=== PATIENT | male | born 1965 | race Caucasian/White ===

== ENCOUNTER 2020-05-05 14:46 | Inpatient (IN) | payer SELFPAY ==
[2020-05-05] VITALS (8 sets, daily range): BP systolic 120–159; BP diastolic 93–114; PULSE 98–114; RESP 15–24; TEMP 36.7–37.1; O2SAT 95–98; BMI 31.1
--- NOTE | ~2020-05-05 | XR_ITS ---
XR chest 1V portable 05/07/2020 08:59 Indication: Cough with shortness of breath Procedure: AP portable chest Comparison: 05/05/2020 Findings: Interval development of patchy bilateral airspace disease, compatible with pneumonia. No pl eural effusion or pneumothorax. Heart size normal. No acute osseous abnormality. Impression: 1: Interval development of patchy bilateral airspace disease, compatible with pneumonia. Reviewed, dictated and finalized at location B. Impression: 1: Interval development of patchy bilateral airspace disease, compatible with p neumonia.
--- NOTE | ~2020-05-05 | XR_ITS ---
EXAMINATION: XR shoulder RT min 2V DATE: 05/05/2020 16:44 INDICATION: Right shoulder pain. TECHNIQUE: 4 views of right shoulder were obtained. COMPARISON: None. FINDINGS: Bone alignment is normal. No fracture. There is mild osteoarthritis of glenohumeral joint a nd acromioclavicular joint. IMPRESSION: 1. Mild polyarticular osteoarthritis. Reviewed, dictated and finalized at location A.
--- NOTE | ~2020-05-05 | XR_ITS ---
XR chest 1V portable DATE: 05/05/2020 15:43 INDICATION: Shortness of breath, cough, hypertension. Congestive heart failure. TECHNIQUE: Portable upright AP chest on 05/05/2020 at 1538 hours COMPARISON: None FINDINGS: Cardiomegaly. Mild aortic unfolding. No hilar or mediastinal enlargement. No pulmonary infiltrate or consolidation, pleural effusion or pulmonary vascular congestion or pneumo thorax. IMPRESSION: Cardiomegaly No active pulmonary disease Reviewed, dictated and finalized at location A.
--- NOTE | ~2020-05-05 | CT_ITS ---
EXAMINATION: CTA chest PE protocol DATE: 05/05/2020 16:38 INDICATION: Chest pain and shortness of breath for 2 days TECHNIQUE: Computed tomography angiography (CTA) of the chest was performed with 100 mL Omnipaque-350 intravenous contrast timed to evaluate the pulmonary arteries. Coronal maximum intensity projection 3D-reconstructions were created by the technologist. Automated exposure control and iterative reconst ruction technique were employed. Exam dose: 742.84 mGy-cm total exam DLP. COMPARISON: 05/05/2020 portable AP chest FINDINGS: There is diagnostic contrast enhancement of the pulmonary arteries and no evidence of pulmo nary embolism. No thoracic aortic aneurysm or dissection. No pericardial or pleural effusion. No hilar or mediastinal mass lesion or lymphadenopathy. There are scattered patchy groundglass infiltrates scattered in both upper and lower lobes, consisten t with bilateral pneumonia. Diffuse idiopathic skeletal hyperostosis of the thoracic spine. IMPRESSION: No evidence of pulmonary embolism Scattered bilateral patchy groundglass infiltrates suggesting bilateral pneumonia. These are not readily detectable even in retrospect on the earlier portable radiograph today at 1538 hours Reviewed, dictated and finalized at Location A. Reviewed, dictated and finalized at location A. IMPRESSION: No evidence of pulmonary embolism Scattered bilateral patchy groundglass infiltrates suggesting bilateral pneumon ia. These are not readily detectable even in retrospect on the earlier portable rad iograph today at 1538 hours
--- NOTE | 2020-05-05 14:59 | ECG_ITS ---
Measurements Intervals [place] Rate: 112 P: 52 UT: 158 QRS: -16 QRSD: 99 T: 95 QT: 407 QTc: 558 Interpretive Statements SINUS TACHYCARDIA POSSIBLE RIGHT ATRIAL ENLARGEMENT POSSIBLE LEFT ATRIAL ENLARGEMENT LEFT VENTRICULAR HYPERTROPHY WITH ST-T CHANGE BORDERLINE T WAVE ABNORMALITY- LATERAL LEADS BASELINE WANDER- V1-V2 ABNORMAL ECG Electronically Signed On 05-05-2020 15:11:55 CDT by Khadar Mckeon D.O.
[2020-05-05 15:19] LABS: Basophils Absolute Auto 0.1 K/mm3 (0.0-0.1); Basophils Percent Auto 0.4 % (0.2-1.2); Eosinophils Absolute Auto 0.2 K/mm3 (0-0.3); Eosinophils Percent Auto 1.2 % (0-4.4); Hematocrit 44.6 % (42.0-52.0); Hemoglobin 15.3 g/dL (14.0-18.0); Immature Granulocyte Absolute 0.05 K/mm3 (0.00-0.031); Immature Granulocyte Percent A 0.4 % (0-0.5); Lymphocytes Absolute Auto 2.26 K/mm3 (0.9-3.2); Lymphocytes Percent Auto 16.2 % (18.3-44.2); Mean Corpuscular HGB Conc 34.3 g/dl (32-36); Mean Corpuscular Hemoglobin 32.8 pg (26-34); Mean Corpuscular Volume 95.7 fl (80-100); Mean Platelet Volume 10.7 fl (7.4-10.4); Monocytes Absolute Auto 1.8 K/mm3 (0.1-0.6); Monocytes Percent Auto 12.6 % (2.6-8.5); Neutrophils Absolute Auto 9.6 K/mm3 (1.3-6.7); Neutrophils Percent Auto 69.2 % (45.5-73.1); Platelet Count Result 312 k/mm3 (150-375); Red Blood Count 4.66 M/mm3 (4.6-6.20); Red Cell Distribution Width 13.2 % (11.5-14.5); White Blood Count 13.9 K/mm3 (4.5-10.0)
[2020-05-05 15:31] LABS: Blood Urea Nitrogen 24 mg/dL (9-20); Carbon Dioxide 25 mmol/L (22-30); Chloride 104 mmol/L (98-107); Estimated CRCL calculation 82 ml/min; Estimated Glomerular Filt Rate > 60; Glucose 133 mg/dL (75-110); Potassium 3.9 mmol/L (3.4-5.0); Sodium 139 mmol/L (137-145)
--- NOTE | 2020-05-05 15:31 | ED.GENADULT ---
HPI - General Adult General Chief complaint: Shortness of Breath/Dyspnea <RAFIA Rausch - Last Filed: 05/05/20 17:08> Stated complaint: cough <RAFIA Rausch - Last Filed: 05/05/20 17:08> Time Seen by Provider: 05/05/20 15:30 <RAFIA Rausch - Last Filed: 05/05/20 17:08> Source: patient <RAFIA Rausch - Last Filed: 05/05/20 17:08> Mode of arrival: ambulatory <RAFIA Rausch - Last Filed: 05/05/20 17:08> Limitations: no limitations <RAFIA Rausch - Last Filed: 05/05/20 17:08> History of Present Illness HPI narrative: 54-year-old male patient presents to the emergency department with complaints of chest pain shortness of breath for the past 2 days. Patient states he recently had a tooth pulled yesterday and was placed on amoxicillin. Patient states that the chest pain shortness of breath happened before that. Patient states that he does work at [employer] and does wear a mass normally daily basis. Patient denies any lightheadedness, dizziness. Denies any fevers. Denies any abdominal pain, nausea, vomiting or diarrhea. Patient is complaining of right shoulder pain stating that over the weekend he was throwing some balls and thinks that he pulled something because since then he has had pain to the right shoulder that radiates down to the elbow. <RAFIA Rausch - Last Filed: 05/05/20 17:08> Related Data Home medications: Home Medications Medication Instructions Recorded Confirmed lisinopril-hydrochlorothiazide 1 tablet 10/09/19 carvedilol 6.25 mg PO 05/05/20 <RAFIA Rausch - Last Filed: 05/05/20 17:08> Allergies/adverse reactions: Allergies Allergy/AdvReac Type Severity Reaction Status Date / Time No Known Allergies Allergy Verified 05/05/20 15:04 <RAFIA Rausch - Last Filed: 05/05/20 17:08> Review of Systems Review of Systems: Narrative: CONSTITUTIONAL: Denies fever, chills, or sweats. EYES: Denies visual changes, redness, or discharge. ENT: Denies rhinorrhea, congestion, sore throat, or otalgia. CARDIOVASCULAR: Positive chest pain, denies palpitations, or edema. RESPIRATORY: Denies cough, positive dyspnea. GASTROINTESTINAL: Denies abdominal pain, nausea, vomiting, or diarrhea. GENITOURINARY: Denies dysuria or hematuria. SKIN: Denies rash or itching. MUSCULOSKELETAL: Denies back pain, joint pain, or myalgia. NEUROLOGIC: Denies headache, numbness, or weakness. PSYCHIATRIC: Denies anxiety or depression. <RAFIA Rausch - Last Filed: 05/05/20 17:08> [facility] Past Medical History Medical History: Medical History (Updated 05/05/20 @ 15:52 by RAFIA Rausch) CHF (congestive heart failure) Diabetes type 2, controlled no longer on meds HTN (hypertension) Migraine <RAFIA Rausch - Last Filed: 05/05/20 17:08> Surgical History Surgical History: Surgical History No significant past surgical history <RAFIA Rausch - Last Filed: 05/05/20 17:08> Social History Social History: Social History Smoking status: Never smoker Alcohol intake: never Substance use: never Gender identity (if verbalized by the patient): Male <RAFIA Rausch - Last Filed: 05/05/20 17:08> Comments At the time of my signature I agree with nursing past medical history, surgical, social, and family history. There is no relevant family history pertinent to the presenting complaint. <RAFIA Rausch - Last Filed: 05/05/20 17:08> Exam Narrative: Exam Narrative: GENERAL: Well-appearing, well-nourished, and in no acute distress. HEAD: Normocephalic, atraumatic. EYES: PERRLA and EOMI. ENT: Nares clear, no rhinorrhea or epistaxis. Mucous membranes moist. NECK: Supple. No lymphadenopathy CHEST: Clear to auscultation. No respiratory distress. HEART: Regular rate an
[2020-05-05 15:51] LABS: NT Pro B Type Natriuretic Pept 7480 PG/ML (5-100); Troponin I 0.091 ng/mL (0.000-0.034)
[2020-05-05] MEDS: ASPIRIN 81 MG CHEWABLE TABLET 324 MG PO (16:15)
[2020-05-05] MEDS: SODIUM CHLORIDE 0.9% IV 1,000 ML 999 ML IV CONT (16:15)
[2020-05-05 17:12] LABS: D Dimer 0.27 ug/mL (<0.48)
[2020-05-05 18:02] LABS: Troponin I 0.094 ng/mL (0.000-0.034)
--- NOTE | 2020-05-05 19:15 | ADMGEN ---
This patient, Hayes Meza, was admitted to Intensive Care Unit-3. Patient/family oriented to hospital policies and general routines including ID bracelet, bed and alarms, visiting hours, pain management, procedures, bathroom and other care routines, personal items, smoking policy, room service/diet, and visiting hours. Valuables list has been completed. Information on how to activate the Rapid Response Team has been discussed. Patient/Family are encouraged to report perceived risks to care and to ask questions if they do not understand what they are told or what they should do.
[2020-05-05] MEDS: SODIUM CHLORIDE 0.9% IV 1,000 ML 125 ML IV CONT (20:03)
[2020-05-05] MEDS: guaiFENesin 200 MG/10 ML UDC PO (21:04)
[2020-05-05] MEDS: ACETAMINOPHEN/ASPIRIN/CAFFEINE 250-250-65 MG TABLET 1 TABLET PO (21:04)
[2020-05-06] VITALS (19 sets, daily range): BP systolic 103–164; BP diastolic 69–118; PULSE 88–110; RESP 18–24; TEMP 36.4–38; O2SAT 95–100
--- NOTE | 2020-05-06 00:18 | PM.IMHP ---
H&P: HPI History of Present Illness Chief complaint: Chest pain and shortness of breath Narrative: Date and time of patient contact: 05/06/2020 at 12:20 a.m. Hayes Meza is a 54 year old male with a past medical history of CHF, hypertension and diet-controlled diabetes who presented to the ER with chest pain and shortness of breath. He reports having a cough for approximately 3 days. He also developed generalized chest pain that is worse with deep breathing and coughing. His cough has been dry and unrelenting. When he was in the ER the patient was on room air. He denies any fevers or chills. 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 He has been wearing his mask all day at work except for during his lunch break. He denies any recent ill contacts or COVID-19 exposure. He did have a dental extraction on the left jaw on the . He is on amoxicillin following his dental extraction. He reports that he has been having right shoulder pain for the last week. He related to when he was playing baseball. He reports severe pain in the shoulder with both active and passive range of motion. He had an x-ray performed in the ER which demonstrated polyarticular arthritis. He reports that it feels like it is grinding any time he tries to produce range of motion with the right shoulder. Initial anterior shoulder and deltoid region is tender to palpation. There is no obvious edema or swelling. He has not noticed any increased warmth. He reports that the pain radiates down to his elbow. He is denies any loss of the since the taste or smell. He has not had any nausea or vomiting. He has been having normal bowel movements without hematochezia or melena. He has not had any recent travel. He denies any lower extremity swelling or orthopnea. He does have a history of migraines and reports that his headache is moderate to severe and is worse due to his coughing. Within 45 minutes arriving to the ICU the patient developed a significant oxygen requirement his pulse ox was down to 70%. He was initially placed on 4 L nasal cannula but had rapid increase in his oxygen requirement up to 10 L high-flow and a non-rebreather in order to maintain his oxygen saturations. An ABG performed at that time pH 7.4 pCO2 25 PO2 189 the patient was subsequently taken off of the non-rebreather. The patient will desat down to the mid 70s with coughing. Has a history diabetes. He reports that he lost 35 lb several years ago and has not required any further diabetic medications. He has been told that he snores and that he has episodes of apnea. He has never had a sleep study. He reports that he had a cardiac catheterization several years ago that was reportedly normal. He was diagnosed with CHF and was on medications for approximately 3 years. He reports that his cardiac function had normalized and his medications were discontinued. He has not been having any orthopnea or paroxysmal nocturnal dyspnea. He has not established with a primary care physician since he moved to [place] in August. Review of Systems Review of Systems: Narrative: 12 systems were reviewed with pertinent positives and negatives per HPI. Except as documented in the HPI, all other systems were reviewed and are negative. [facility] Past Medical History Medical History (Updated 05/06/20 @ 03:48 by Skylar Severino DO) CHF (congestive heart failure) The patient reports that he had CHF about 6-8 years ago when he lived in [place]. After medication adjustments his cardiac function normalized. Diet-controlled diabetes mellitus Essential hypertension Migraine Surgical History Surgical History (Updated 05/06/20 @ 03:30 by Skylar Severino DO) History of cardiac catheterization Approximately 6 years ago and was normal per patient report Family History Family History Mother Lung cancer Social History Social History (Updated 05/06
[2020-05-06 00:40] LABS: Troponin I 0.088 ng/mL (0.000-0.034)
[2020-05-06 00:43] LABS: Alveolar/Arterial O2 Gradient 210.1 mmHg; Base Excess ABG -5.6 mEq/l (+/-2.0); Carboxyhemoglobin 0.1 % THb (0-2.0); Fractional Inspired Oxygen 60 %; HCO3 ABG 16.8 mEq/l (22.0-26.0); Methemoglobin ABG 0.4 %THb (0-1.5); Oxygen Content ABG 20.3 %vol (16.0-22.0); Oxygen Saturation ABG 99.4 % (95.0-100.0); Oxyhemoglobin 98.3 % THb (90.0-100.0); PCO2 ABG 25.5 mmHg (35.0-45.0); PO2 ABG 189.7 mmHg (80.0-100.0); PO2 FiO2 Ratio Arterial Blood 3.16 %; Reduced Hemoglobin 1.2 %THb (0-5.0); Total Hemoglobin 14.4 g/dL (12.0-18.0); pH ABG 7.436 (7.350-7.450)
[2020-05-06 00:44] LABS: Device HIGH FLOW NASAL CANN; Modified Allen's Test Pass; Site Drawn RIGHT RADIAL
[2020-05-06] MEDS: guaiFENesin 200 MG/10 ML UDC PO (01:26)
[2020-05-06] MEDS: ACETAMINOPHEN/ASPIRIN/CAFFEINE 250-250-65 MG TABLET 1 TABLET PO (01:26)
[2020-05-06] MEDS: ALBUTEROL SULFATE (*SP) AEROSOL 1 PUFF 6 PUFF INHALATION ×5 (04:37→21:07)
[2020-05-06] MEDS: METOPROLOL TARTRATE INJ 5 MG/5 ML VIAL IV PUSH (05:16)
[2020-05-06 05:57] LABS: Basophils Absolute Auto 0.1 K/mm3 (0.0-0.1); Basophils Percent Auto 0.4 % (0.2-1.2); Eosinophils Absolute Auto 0.2 K/mm3 (0-0.3); Eosinophils Percent Auto 1.1 % (0-4.4); Hematocrit 41.7 % (42.0-52.0); Hemoglobin 13.7 g/dL (14.0-18.0); Immature Granulocyte Absolute 0.08 K/mm3 (0.00-0.031); Immature Granulocyte Percent A 0.5 % (0-0.5); Lymphocytes Absolute Auto 1.83 K/mm3 (0.9-3.2); Lymphocytes Percent Auto 11.1 % (18.3-44.2); Mean Corpuscular HGB Conc 32.9 g/dl (32-36); Mean Corpuscular Hemoglobin 32.4 pg (26-34); Mean Corpuscular Volume 98.6 fl (80-100); Mean Platelet Volume 11.8 fl (7.4-10.4); Monocytes Absolute Auto 1.9 K/mm3 (0.1-0.6); Monocytes Percent Auto 11.2 % (2.6-8.5); Neutrophils Absolute Auto 12.5 K/mm3 (1.3-6.7); Neutrophils Percent Auto 75.7 % (45.5-73.1); Platelet Count Result 217 k/mm3 (150-375); Red Blood Count 4.23 M/mm3 (4.6-6.20); Red Cell Distribution Width 13.3 % (11.5-14.5); White Blood Count 16.5 K/mm3 (4.5-10.0)
[2020-05-06 06:55] LABS: Alanine Aminotransferase 34 U/L (4-50); Albumin Level 3.7 g/dL (3.5-5.1); Alkaline Phosphatase 59 U/L (38-126); Aspartate Amino Transferase 39 U/L (17-59); Bilirubin,Total 1.1 mg/dL (0.2-1.3); Blood Urea Nitrogen 22 mg/dL (9-20); CRP 1.6 mg/dL (<1.0); Calcium 8.1 mg/dL (8.4-10.2); Carbon Dioxide 26 mmol/L (22-30); Chloride 104 mmol/L (98-107); Estimated CRCL calculation 82 ml/min; Estimated Glomerular Filt Rate > 60; Glucose 165 mg/dL (75-110); Lactate Dehydrogenase 688 U/L (313-618); Sodium 137 mmol/L (137-145)
[2020-05-06] MEDS: lisinopriL 20 MG TABLET PO (08:43)
[2020-05-06] MEDS: hydroCHLOROthiazide 25 MG TABLET PO (08:44)
[2020-05-06] MEDS: ENOXAPARIN 40 MG/0.4 ML SYRINGE SUB-Q ×2 (08:44→20:20)
[2020-05-06] MEDS: ACETAMINOPHEN/ASPIRIN/CAFFEINE 250-250-65 MG TABLET 2 TABLET PO ×3 (08:45→20:31)
[2020-05-06] MEDS: BENZOCAINE/MENTHOL (*BKC) 18 EA LOZENGE 1 LOZENGE PO ×2 (13:30→20:28)
[2020-05-06 13:39] LABS: Glucose Point of Care 110 (65-105)
[2020-05-06 13:59] LABS: SARS-CoV-2 RNA PCR Negative
--- NOTE | 2020-05-06 15:18 | WPDCN ---
Assessment and Plan Assessment and plan (1) Chest pain: Code(s): R07.9 - Chest pain, unspecified Status: Acute Assessment and Plan: The patient presented with chest pain which appears to be noncardiac. Likely musculoskeletal and related to pulmonary issues. The patient does have a history of cardiomyopathy which apparently normalized, and a mildly elevated proBNP with cardiomegaly on the chest x-ray. Reasonable to evaluate with a echo to see if there is any left ventricular dysfunction If so, recommend cardiology follow-up as an outpatient. (2) Elevated troponin: Code(s): R79.89 - Other specified abnormal findings of blood chemistry Status: Acute Assessment and Plan: Borderline elevation of troponins, secondary to physiologic stress. No evidence of ACS. 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 (4) Acute respiratory failure with hypoxia: Code(s): J96.01 - Acute respiratory failure with hypoxia Status: Acute Assessment and Plan: (5) Suspected COVID-19 virus infection: Code(s): Z20.828 - Contact with and (suspected) exposure to other viral communicable diseases Status: Acute Assessment and Plan: COVID screen pending HPI Data of Consult Date/Time: 05/06/20 15:18 Requesting Physician: Alessandra Pavon MD Primary Care Provider: RESEARCH AIDE PHYSICIAN Consult Narrative Narrative: Date of service: 05/05/2020 Hayes Meza is a 54 year old male number asked to see at the request of the hospitalist for advice and opinion regarding his chest pain, shortness of breath and elevated troponins. This apparently has a history of CHF with normalization of left ventricular function, treated in [place]. The patient has developed the shortness of breath cough and chest pain over the last 3 days. The chest pain has been worse with coughing and deep breathing in a there has been tenderness to touch. He apparently was able to play baseball last week and has had pain in the right shoulder since then. The pain is present with motion. Shortly after admission he became hypoxic with O2 saturations dropping down the 70% requires high-flow oxygen in the ICU. His COVID screen is pending. Troponins ranged from 0.088 up to 0.094. ProBNP was 7500. He has no known coronary disease; apparently had a cardiac catheterization several years ago which was normal. Apparently was treated for CHF 6-8 years ago treated in [place] but had normalization of left ventricular function and medications were discontinued. He does have diabetes and hypertension. Review of Systems Review of Systems: Narrative: the review of systems is obtained from the chart and from the patient's nurse. ROS unobtainable: Yes unobtainable due to medical condition ( COVID screen is still pending) Eyes: Eyes: Reports no additional eye complaints Cardiovascular: Cardiovascular: Reports chest pain, Denies pedal edema and Denies palpitations Respiratory: Respiratory: Reports cough, Reports dyspnea and Reports dyspnea on exertion Gastrointestinal: Gastrointestinal: Denies hematochezia and Denies vomiting Genitourinary: Genitourinary: Denies hematuria and Denies dysuria Musculoskeletal: Musculoskeletal: Denies back pain and Reports arthralgias ( shoulder pain) Integumentary/[place]
--- NOTE | 2020-05-06 16:49 | PC.NURSE ---
This patient, Hayes Meza, was transferred to [ 210] on 05/06/20 at 1635. Personal belongings sent with patient. Belongings list checked and signed with receiving [ ]. Report given to [TYWLA Cervantes ]. Appropriate documentation sent with patient.
[2020-05-06 16:56] LABS: Glucose Point of Care 172 (65-105)
--- NOTE | 2020-05-06 17:51 | PM.IMPN ---
Progress Note: A&P Assessment and Plan (1) Acute respiratory failure with hypoxia: Code(s): J96.01 - Acute respiratory failure with hypoxia Status: Acute Assessment and Plan: Given his rapid development of high oxygen requirement this is concerning for possible COVID-19 infection but swab is negative today.. Will recheck LDH, CRP, ferritin and LFTs. Blood cultures have been ordered and negative today (2) Pneumonia: Qualifiers: Pneumonia type: due to unspecified organism Laterality: bilateral Lung location: unspecified part of lung Qualified Code(s): J18.9 - Pneumonia, unspecified organism Code(s): J18.9 - Pneumonia, unspecified organism Status: Acute Assessment and Plan: The patient could have COVID-19 even though initial swab is negative though doubt with markers being low. . However given the patient's recent dental procedure in until infection pneumonia due to other bacterial causes also need to be considered. Will obtain blood cultures still pending The patient cannot have antibiotic therapy with Levaquin or azithromycin due to QT prolongation with a QTC of 558. antibiotic therapy with Rocephin and doxycycline day 2. Will check a strep pneumonia antigen and Legionella to rule out other sources of pneumonia (3) History of recent dental procedure: Code(s): Z98.890 - Other specified postprocedural states Status: Acute Assessment and Plan: Patient reports his pain is improved since his tooth has been extracted. (4) Suspected COVID-19 virus infection: Code(s): Z20.828 - Contact with and (suspected) exposure to other viral communicable diseases Status: Acute Assessment and Plan: The patient was on isolation and COVID-19 testing is pending.. (5) Migraine: Qualifiers: Migraine type: unspecified Status migrainosus presence: without status migrainosus Intractability: intractable Qualified Code(s): G43.919 - Migraine, unspecified, intractable, without status migrainosus Code(s): G43.909 - Migraine, unspecified, not intractable, without status migrainosus Status: Acute Assessment and Plan: Excedrin as needed. (6) Right shoulder pain: Qualifiers: Chronicity: acute Qualified Code(s): M25.511 - Pain in right shoulder Code(s): M25.511 - Pain in right shoulder Status: Acute Assessment and Plan: With mild pallor reticular arthritis noted on x-ray. Will check blood cultures to rule out possibility of a joint infection given patient's recent dental procedure. Subjective Date/time seen: 05/06/20 17:51 Interval history: Date of visit 05/07. 54-year-old white male past history of heart failure presented to the emergency room with complaints dry cough shortness of breath and shoulder pain. CTA showed no emboli but did show some multifocal pneumonia. Placed on antibiotics and swabs for COVID and admitted. BNP was elevated. This a.m. feels much better coughing less. As stated cough has been nonproductive Exam Narrative: Exam Narrative: Blood pressure 104/74 pulse is 96, saturating 92% on 7 L nasal cannula Neck supple no adenopathy Lungs prolonged expiratory phase very faint dry basilar crackles CV tachy no murmurs Abdomen is soft nontender Extremities without edema Neuro alert cooperative no focal deficits Objective Data Vital Signs Vital Signs: Vital Signs - 24 hr 05/05/20 18:35 05/05/20 18:57 05/05/20 20:00 Temperature 36.7 C Pulse Rate 110 H 99 103 H Respiratory Rate 16 18 22 H Blood Pressure 159/108 H 127/93 H Pulse Oximetry 95 96 97 05/05/20 21:50 05/06/20 00:00 05/06/20 01:30 Temperature 36.9 C Pulse Rate 99 98 105 H Respiratory Rate 22 H 24 H 20 Blood Pressure 141/118 H Pulse Oximetry 95 95 96 05/06/20 04:00 05/06/20 04:46 05/06/20 05:16 Temperature 36.7 C Pulse Rate 107 H 105 H 110 H Respiratory Rate 20 24 H Blood
[2020-05-07] VITALS (16 sets, daily range): BP systolic 123–140; BP diastolic 75–97; PULSE 86–111; RESP 18–24; TEMP 36.7–37.2; O2SAT 92–100
--- NOTE | 2020-05-07 | ECHO_ITS ---
Patient Info Name: Hayes Meza Age: 54 years : 1965 Gender: Male Ht: 68 in Wt: 205 lbs BSA: 2.14 m2 HR: 111 bpm BP: 123 / 75 mmHg Heart Rhythm: Sinus Rhythm Technical Quality: Good Exam Date: 05/07/2020 10:11 AM Exam Location: [facility] Patient Status: Inpatient Admit Date: 05/06/2020 Staff Ordering Physician: Gonzalo Torres MD Portfolio Mgr: Riaz Tay, HAMCS, RT Attending Provider: Alessandra Pavon MD Referring Physician: Brian CAMPUZANO; Exam Type: CA echo dop color flow w con Study Info Indications R06.02 - Shortness of breath Complete two-dimensional, color flow and Doppler transthoracic echocardiogram is performed with contrast to opacify the left ventricle and to improve the deliniation of the left ventricle endocardial borders. Summary 1. Left ventricular systolic function is mildly reduced, estimated at 40-45%. 2. Definity contrast injected to improve visualization. 3. Left atrial chamber dimension is mildly enlarged. 4. There is mild mitral valve regurgitation. Left Ventricle Left ventricular chamber dimension is mildly enlarged. Left ventricular systolic function is mildly reduced, estimated at 40-45%. The left ventricular diastolic function is normal. Definity contrast injected to improve visualization. Right Ventricle Right ventricular chamber dimension is normal. Left Atria Left atrial chamber dimension is mildly enlarged. Right Atria Right atrial chamber dimension is normal. Aortic Valve The aortic valve is normal. Pulmonic Valve The pulmonic valve is not well visualized. Mitral Valve The mitral valve has normal leaflets. There is mild mitral valve regurgitation. Tricuspid Valve The tricuspid valve leaflets are normal. Pericardium/Pleural The pericardium appears normal. Aorta The aortic root size at the sinus of Valsalva is normal. Left Ventricular Outflow Tract Name Value Normal LVOT 2D LVOT Diameter 2.48 cm LVOT Doppler LVOT Peak Gradient 7 mmHg LVOT Mean Gradient 4 mmHg LVOT VTI 17.85 cm LVOT VTI/AV VTI Ratio 0.82 LVOT Stroke Volume 86.05 ml Mitral Valve Name Value Normal MV Doppler MV Decel [place] 675.92 cm/s2 MV PHT 0 s MV Area (PHT) 5.50 cm2 4.00-5.00 MV Diastolic Function MV E Peak Velocity 93.16 cm/s MV A Peak Velocity 61.85 cm/s MV E/A 1.51 MV Decel Time 0 s Tricuspid Valve Na
[2020-05-07] MEDS: BENZOCAINE/MENTHOL (*BKC) 18 EA LOZENGE 1 LOZENGE PO ×2 (04:18→19:55)
[2020-05-07 05:06] LABS: Basophils Percent Auto 0.2 % (0.2-1.2); Eosinophils Absolute Auto 0.3 K/mm3 (0-0.3); Eosinophils Percent Auto 2.1 % (0-4.4); Hematocrit 42.7 % (42.0-52.0); Immature Granulocyte Percent A 1.3 % (0-0.5); Lymphocytes Absolute Auto 1.68 K/mm3 (0.9-3.2); Lymphocytes Percent Auto 11.3 % (18.3-44.2); Mean Corpuscular HGB Conc 32.8 g/dl (32-36); Mean Corpuscular Hemoglobin 32.2 pg (26-34); Mean Corpuscular Volume 98.2 fl (80-100); Mean Platelet Volume 11.2 fl (7.4-10.4); Monocytes Absolute Auto 2.1 K/mm3 (0.1-0.6); Monocytes Percent Auto 14.4 % (2.6-8.5); Neutrophils Absolute Auto 10.5 K/mm3 (1.3-6.7); Neutrophils Percent Auto 70.7 % (45.5-73.1); Platelet Count Result 243 k/mm3 (150-375); Red Blood Count 4.35 M/mm3 (4.6-6.20); Red Cell Distribution Width 13.1 % (11.5-14.5); White Blood Count 14.8 K/mm3 (4.5-10.0)
[2020-05-07 05:24] LABS: Blood Urea Nitrogen 17 mg/dL (9-20); Calcium 8.4 mg/dL (8.4-10.2); Carbon Dioxide 28 mmol/L (22-30); Chloride 102 mmol/L (98-107); Estimated CRCL calculation 81 ml/min; Estimated Glomerular Filt Rate > 60; Glucose 121 mg/dL (75-110); Lactate Dehydrogenase 748 U/L (313-618); Potassium 3.6 mmol/L (3.4-5.0); Sodium 138 mmol/L (137-145)
[2020-05-07] MEDS: hydroCHLOROthiazide 25 MG TABLET PO (08:42)
[2020-05-07] MEDS: ENOXAPARIN 40 MG/0.4 ML SYRINGE SUB-Q ×2 (08:42→20:02)
[2020-05-07] MEDS: lisinopriL 20 MG TABLET PO (08:43)
[2020-05-07] MEDS: traMADol HCL 50 MG TABLET PO (08:45)
[2020-05-07] MEDS: ALBUTEROL SULFATE (*SP) AEROSOL 1 PUFF 6 PUFF INHALATION ×3 (09:00→21:04)
--- NOTE | 2020-05-07 10:37 | PC.NURSE ---
Pt has been transferred to 3rd med/surg at this time/bed 333, from IMU.
[2020-05-07] MEDS: ACETAMINOPHEN/ASPIRIN/CAFFEINE 250-250-65 MG TABLET 2 TABLET PO ×2 (10:49→22:54)
--- NOTE | 2020-05-07 14:15 | PC.NURSE ---
This patient, Hayes Meza, was transferred to [Jud[facility] ] on 05/07/20 at 1029. Personal belongings sent with patient. Belongings list checked and signed with receiving [ ]. Report given to [Jessica ]. Appropriate documentation sent with patient.
--- NOTE | 2020-05-07 17:35 | PM.IMPN ---
Progress Note: A&P Assessment and Plan (1) Acute respiratory failure with hypoxia: Code(s): J96.01 - Acute respiratory failure with hypoxia Status: Acute Assessment and Plan: Given his rapid development of high oxygen requirement this is concerning for possible COVID-19 infection but swab is negative 05/06 . Inflammatory markers are not elevated but will repeat COVID with more infiltrate seen on chest x-ray today . Blood cultures have been ordered and negative today, urine sent for Legionella and pneumococcal antigen (2) Pneumonia: Qualifiers: Pneumonia type: due to unspecified organism Laterality: bilateral Lung location: unspecified part of lung Qualified Code(s): J18.9 - Pneumonia, unspecified organism Code(s): J18.9 - Pneumonia, unspecified organism Status: Acute Assessment and Plan: The patient could have COVID-19 even though initial swab is negative though doubt with markers being low. . However given the patient's recent dental procedure in until infection pneumonia due to other bacterial causes also need to be considered. cultures still pending The patient cannot have antibiotic therapy with Levaquin or azithromycin due to QT prolongation with a QTC of 558. antibiotic therapy with Rocephin and doxycycline day 3. Will check a strep pneumonia antigen and Legionella to rule out other sources of pneumonia (3) History of recent dental procedure: Code(s): Z98.890 - Other specified postprocedural states Status: Acute Assessment and Plan: Patient reports his pain is improved since his tooth has been extracted. (4) Suspected COVID-19 virus infection: Code(s): Z20.828 - Contact with and (suspected) exposure to other viral communicable diseases Status: Acute Assessment and Plan: The patient was on isolation and COVID-19 testing is initially negative and repeat testing ordered (5) Migraine: Qualifiers: Migraine type: unspecified Status migrainosus presence: without status migrainosus Intractability: intractable Qualified Code(s): G43.919 - Migraine, unspecified, intractable, without status migrainosus Code(s): G43.909 - Migraine, unspecified, not intractable, without status migrainosus Status: Acute Assessment and Plan: Excedrin as needed. (6) Right shoulder pain: Qualifiers: Chronicity: acute Qualified Code(s): M25.511 - Pain in right shoulder Code(s): M25.511 - Pain in right shoulder Status: Acute Assessment and Plan: With mild pallor reticular arthritis noted on x-ray. Will check blood cultures to rule out possibility of a joint infection given patient's recent dental procedure. (7) CHF (congestive heart failure): Code(s): I50.9 - Heart failure, unspecified Status: Acute Assessment and Plan: History of congestive heart failure and echo has been obtained but not resulted. BNP was elevated but clinically does not have heart failure. Continue Zaiz and low-dose diuretic at this time Subjective Date/time seen: 05/07/20 17:35 Interval history: Date of visit 05/07. 54-year-old white male past history of heart failure presented to the emergency room with complaints dry cough shortness of breath and shoulder pain. CTA showed no emboli but did show some multifocal pneumonia. Placed on antibiotics and swabs for COVID which returned negative. BNP was elevated. This a.m. feels much better coughing less. As stated cough has been nonproductive Exam Narrative: Exam Narrative: Blood pressure 136/84 pulse is 84, saturating 94% on 3 L nasal cannula Neck supple no adenopathy Lungs prolonged expiratory phase very faint dry basilar crackles CV no murmurs Abdomen is soft nontender Extremities without edema Neuro alert cooperative no focal deficits Objective Data Vital Signs Vital Signs: Vital Signs - 24 hr 05/06/20 18:00 05/06/20
[2020-05-08] VITALS (12 sets, daily range): BP systolic 103–126; BP diastolic 68–89; PULSE 84–100; RESP 18–20; TEMP 36.5–37; O2SAT 93–100
[2020-05-08 00:16] LABS: SARS-CoV-2 RNA PCR Negative
[2020-05-08] MEDS: BENZOCAINE/MENTHOL (*BKC) 18 EA LOZENGE 1 LOZENGE PO ×2 (05:06→16:33)
[2020-05-08 06:34] LABS: Basophils Absolute Auto 0.1 K/mm3 (0.0-0.1); Basophils Percent Auto 0.4 % (0.2-1.2); Eosinophils Absolute Auto 0.4 K/mm3 (0-0.3); Eosinophils Percent Auto 3.6 % (0-4.4); Hemoglobin 13.9 g/dL (14.0-18.0); Immature Granulocyte Absolute 0.05 K/mm3 (0.00-0.031); Immature Granulocyte Percent A 0.4 % (0-0.5); Lymphocytes Absolute Auto 1.99 K/mm3 (0.9-3.2); Lymphocytes Percent Auto 17.2 % (18.3-44.2); Mean Corpuscular HGB Conc 33.1 g/dl (32-36); Mean Corpuscular Hemoglobin 31.8 pg (26-34); Mean Corpuscular Volume 96.1 fl (80-100); Mean Platelet Volume 10.1 fl (7.4-10.4); Monocytes Absolute Auto 1.8 K/mm3 (0.1-0.6); Monocytes Percent Auto 15.8 % (2.6-8.5); Neutrophils Absolute Auto 7.2 K/mm3 (1.3-6.7); Neutrophils Percent Auto 62.6 % (45.5-73.1); Platelet Count Result 267 k/mm3 (150-375); Red Blood Count 4.37 M/mm3 (4.6-6.20); Red Cell Distribution Width 12.7 % (11.5-14.5); White Blood Count 11.6 K/mm3 (4.5-10.0)
[2020-05-08 07:04] LABS: Blood Urea Nitrogen 16 mg/dL (9-20); CRP 5.5 mg/dL (<1.0); Calcium 8.5 mg/dL (8.4-10.2); Carbon Dioxide 30 mmol/L (22-30); Chloride 102 mmol/L (98-107); Estimated CRCL calculation 82 ml/min; Estimated Glomerular Filt Rate > 60; Glucose 103 mg/dL (75-110); Lactate Dehydrogenase 711 U/L (313-618); Potassium 3.7 mmol/L (3.4-5.0); Sodium 138 mmol/L (137-145)
[2020-05-08] MEDS: hydroCHLOROthiazide 25 MG TABLET PO (09:13)
[2020-05-08] MEDS: lisinopriL 20 MG TABLET PO (09:13)
[2020-05-08] MEDS: ENOXAPARIN 40 MG/0.4 ML SYRINGE SUB-Q ×2 (09:13→20:38)
[2020-05-08] MEDS: ALBUTEROL SULFATE (*SP) AEROSOL 1 PUFF 6 PUFF INHALATION ×4 (09:40→19:58)
[2020-05-08] MEDS: carvediloL 6.25 MG TABLET PO ×2 (12:34→20:39)
--- NOTE | 2020-05-08 15:09 | PM.IMPN ---
Progress Note: A&P Assessment and Plan (1) Acute respiratory failure with hypoxia: Code(s): J96.01 - Acute respiratory failure with hypoxia Status: Acute Assessment and Plan: Given his rapid development of high oxygen requirement this was concerning for possible COVID-19 infection but swab is negative x2 and has rapidly improved with standard antibiotics.. covid inflammatory markers low or normal. Blood cultures negative and urine antigens pending (2) Pneumonia: Qualifiers: Pneumonia type: due to unspecified organism Laterality: bilateral Lung location: unspecified part of lung Qualified Code(s): J18.9 - Pneumonia, unspecified organism Code(s): J18.9 - Pneumonia, unspecified organism Status: Acute Assessment and Plan: . . However given the patient's recent dental procedure an infectious pneumonia due to other bacterial causes also need to be considered. blood cultures negative The patient cannot have antibiotic therapy with Levaquin or azithromycin due to QT prolongation with a QTC of 558. antibiotic therapy with Rocephin and doxycycline day 3. urine strep pneumonia antigen and Legionella pending (3) History of recent dental procedure: Code(s): Z98.890 - Other specified postprocedural states Status: Acute Assessment and Plan: Patient reports his pain is improved since his tooth has been extracted. (4) Suspected COVID-19 virus infection: Code(s): Z20.828 - Contact with and (suspected) exposure to other viral communicable diseases Status: Acute Assessment and Plan: The patient was on isolation and COVID-19 testing was negative x 2.. (5) Migraine: Qualifiers: Migraine type: unspecified Status migrainosus presence: without status migrainosus Intractability: intractable Qualified Code(s): G43.919 - Migraine, unspecified, intractable, without status migrainosus Code(s): G43.909 - Migraine, unspecified, not intractable, without status migrainosus Status: Acute Assessment and Plan: Excedrin as needed.and better today (6) Right shoulder pain: Qualifiers: Chronicity: acute Qualified Code(s): M25.511 - Pain in right shoulder Code(s): M25.511 - Pain in right shoulder Status: Acute Assessment and Plan: With mild pallor reticular arthritis noted on x-ray. blood cultures negative (7) CHF (congestive heart failure): Code(s): I50.9 - Heart failure, unspecified Status: Acute Assessment and Plan: History of CHF(chronic systolic). Echocardiogram revealed ejection fraction of 40-45%. He is on a FARAZ-inhibitor and on further questioning states that he used to be on beta-kamila before moved to this area. He is not a stab himself with a physician or wheel tuner and ran out of the Coreg. Well compensated with his failure and add Coreg 6.25 Q 12 to his FARAZ-inhibitor and mild diuretic Subjective Date/time seen: 05/08/20 15:09 Interval history: Date of visit 05/08. 54-year-old white male past history of heart failure presented to the emergency room with complaints dry cough shortness of breath and shoulder pain. CTA showed no emboli but did show some multifocal pneumonia. Placed on antibiotics and swabs for COVID which returned negative. BNP was elevated. This a.m. feels much better coughing less. and off 02 Exam Narrative: Exam Narrative: Blood pressure 126/86 pulse is 86, saturating 93% on RA Neck supple no adenopathy Lungs prolonged expiratory phase but clear CV no murmurs Abdomen is soft nontender Extremities without edema Neuro alert cooperative no focal deficits Objective Data Vital Signs Vital Signs: Vital Signs - 24 hr 05/07/20 17:58 05/07/20 18:00 05/07/20 20:00 Temperature 37.2 C Pulse Rate 86 95 Respiratory Rate 20 20 Blood Pressure 140/80 Pulse Oximetry 92 94 93 05/07/20 21:05 05/07/20 22:00 05/08/20
[2020-05-08] MEDS: ACETAMINOPHEN/ASPIRIN/CAFFEINE 250-250-65 MG TABLET 2 TABLET PO (20:45)
[2020-05-09] VITALS: PULSE 84
[2020-05-09 04:00] VITALS: PULSE 82
[2020-05-09 06:00] VITALS: BP 129/92; PULSE 80; RESP 20; TEMP 36.6; O2SAT 96
[2020-05-09 06:30] LABS: Basophils Absolute Auto 0.1 K/mm3 (0.0-0.1); Basophils Percent Auto 0.4 % (0.2-1.2); Eosinophils Absolute Auto 0.6 K/mm3 (0-0.3); Eosinophils Percent Auto 4.4 % (0-4.4); Hematocrit 42.2 % (42.0-52.0); Hemoglobin 14.3 g/dL (14.0-18.0); Immature Granulocyte Absolute 0.07 K/mm3 (0.00-0.031); Immature Granulocyte Percent A 0.5 % (0-0.5); Lymphocytes Percent Auto 21.3 % (18.3-44.2); Mean Corpuscular HGB Conc 33.9 g/dl (32-36); Mean Corpuscular Hemoglobin 31.8 pg (26-34); Mean Corpuscular Volume 93.8 fl (80-100); Mean Platelet Volume 10.4 fl (7.4-10.4); Monocytes Percent Auto 14.9 % (2.6-8.5); Neutrophils Absolute Auto 7.7 K/mm3 (1.3-6.7); Neutrophils Percent Auto 58.5 % (45.5-73.1); Platelet Count Result 329 k/mm3 (150-375); Red Cell Distribution Width 12.5 % (11.5-14.5); White Blood Count 13.1 K/mm3 (4.5-10.0)
[2020-05-09 06:44] LABS: Blood Urea Nitrogen 22 mg/dL (9-20); Calcium 8.7 mg/dL (8.4-10.2); Carbon Dioxide 25 mmol/L (22-30); Chloride 103 mmol/L (98-107); Estimated CRCL calculation 73 ml/min; Estimated Glomerular Filt Rate > 60; Glucose 114 mg/dL (75-110); Sodium 136 mmol/L (137-145)
[2020-05-09] MEDS: ALBUTEROL SULFATE (*SP) AEROSOL 1 PUFF 6 PUFF INHALATION (07:59)
[2020-05-09 08:00] VITALS: PULSE 92
[2020-05-09 09:13] VITALS: PULSE 88
[2020-05-09] MEDS: carvediloL 6.25 MG TABLET PO (09:13)
[2020-05-09] MEDS: ENOXAPARIN 40 MG/0.4 ML SYRINGE SUB-Q (09:13)
[2020-05-09] MEDS: lisinopriL 20 MG TABLET PO (09:13)
[2020-05-09] MEDS: hydroCHLOROthiazide 25 MG TABLET PO (09:13)
--- NOTE | 2020-05-09 18:09 | PM.DS ---
DS: Admitting Diagnosis Admitting Diagnosis Admitting Diagnosis: Acute respiratory failure with hypoxia DS: Discharge Diagnosis Discharge Diagnosis (1) Acute respiratory failure with hypoxia: Code(s): J96.01 - Acute respiratory failure with hypoxia Status: Acute Assessment and Plan: Given his rapid development of high oxygen requirement there was concern for possible COVID-19 infection but swab was negative x2 and had rapidly improvement with standard antibiotics.. covid inflammatory markers low or normal as well. Blood cultures negative and urine antigens pending at discharge (2) Pneumonia: Qualifiers: Pneumonia type: due to unspecified organism Laterality: bilateral Lung location: unspecified part of lung Qualified Code(s): J18.9 - Pneumonia, unspecified organism Code(s): J18.9 - Pneumonia, unspecified organism Status: Acute Assessment and Plan: . . However given the patient's recent dental procedure an infectious pneumonia due to other bacterial causes also need to be considered. blood cultures negative. Received antibiotic therapy with Rocephin and doxycycline 4 days total and discharge with Levaquin 750 daily for 3 more days for a total of 7 days treatment. urine strep pneumonia antigen and Legionella pending (3) History of recent dental procedure: Code(s): Z98.890 - Other specified postprocedural states Status: Acute Assessment and Plan: Patient reports his pain is improved since his tooth has been extracted. (4) Suspected COVID-19 virus infection: Code(s): Z20.828 - Contact with and (suspected) exposure to other viral communicable diseases Status: Acute Assessment and Plan: COVID-19 testing was negative x 2.. (5) Migraine: Qualifiers: Migraine type: unspecified Status migrainosus presence: without status migrainosus Intractability: intractable Qualified Code(s): G43.919 - Migraine, unspecified, intractable, without status migrainosus Code(s): G43.909 - Migraine, unspecified, not intractable, without status migrainosus Status: Acute Assessment and Plan: Excedrin as needed. Headache subsided (6) Right shoulder pain: Qualifiers: Chronicity: acute Qualified Code(s): M25.511 - Pain in right shoulder Code(s): M25.511 - Pain in right shoulder Status: Acute Assessment and Plan: With mild pallor reticular arthritis noted on x-ray. Shoulder pain subsided blood cultures negative (7) CHF (congestive heart failure): Code(s): I50.9 - Heart failure, unspecified Status: Acute Assessment and Plan: History of CHF(chronic systolic). Echocardiogram revealed ejection fraction of 40-45%. He is on a FARAZ-inhibitor and on further questioning states that he used to be on beta-kamila before moved to this area. He is not established himself with a physician or calculus tutor and ran out of the Coreg. Well compensated with his failure and added Coreg 6.25 Q 12 to his FARAZ-inhibitor and mild diuretic DS: Summary Hospital Course Hospital Course: 54-year-old white male presented to the emergency room with shoulder pain and found to have hypoxia bilateral pulmonary infiltrates. With degree of hypoxia is felt that he may have COVID although inflammatory markers were not elevated and he was not febrile per se. COVID testing was negative x2 and a responded quickly to standard antibiotics with ceftriaxone and doxycycline which he receive for 4 days while here. White cell count was still mildly elevated but O2 sat steadily improved bili was on room air 96% sats at the time of discharge. He will receive 3 more days of levofloxacin 750 daily for a total of 7 days treatment Echocardiogram had an EF of 45% and Coreg 6.25 was added to his lisinopril hydrochlorothiazide., encouraged follow-up with primary care and calculus tutor Return to work 05/17 Time Spent wit
[2020-05-13 21:18] LABS: Pneumococcal Antigen Urine Not Detected (Not Detected)
[2020-05-14 15:10] LABS: Legionella pneumophila Ag Ur Not Detected (Not Detected)
== END 2020-05-09 11:20 | disposition home or self-care (01) | DRG 139 ==
LOC: ANHED 17:15 → ANHICU 17:59 → ANH3MEDSUR 05-07 23:37 → ANHICU 05-11 14:02 → ANH3MEDSUR 05-11 14:02 → ANHIMU 05-11 14:02
PROVIDERS: Emergency Medicine; Internal Medicine; Admitting Provider Family Medicine; Emergency Provider Nurse Practitioner Family; Visit Provider Internal Medicine
DX: J18.9 Pneumonia, unspecified organism (principal); J96.01 Acute respiratory failure with hypoxia; I42.9 Cardiomyopathy, unspecified; I11.0 Hypertensive heart disease with heart failure; I50.22 Chronic systolic (congestive) heart failure; Z20.828 Contact with and (suspected) exposure to other viral communicable diseases; M25.511 Pain in right shoulder; M13.811 Other specified arthritis, right shoulder; R07.9 Chest pain, unspecified; E11.9 Type 2 diabetes mellitus without complications; G43.919 Migraine, unspecified, intractable, without status migrainosus; Z98.890 Other specified postprocedural states
CPT/HCPCS: 36415; 36600; 71045; 71275; 73030; 80048; 80053; 82375; 82728; 82805; 83050; 83605; 83615; 83880; 84484; 85025; 85380; 86140; 87040; 87449; 87635; 87899; 93005; 94640; 96361; 96365; 96367; 96372; 96374; 96375; 99285; A9270; C8929; C9803; G0378; G0379; J0131; J0696; J1650; J7030; Q9957; Q9967; U0003

== ENCOUNTER 2020-06-24 10:31 | Inpatient (IN) | payer OTHER, SELFPAY ==
[2020-06-24] VITALS (13 sets, daily range): BP systolic 106–154; BP diastolic 51–93; PULSE 87–113; RESP 14–23; TEMP 35.9–37.2; O2SAT 93–99; BMI 31.8
--- NOTE | ~2020-06-24 | US_ITS ---
EXAMINATION: US right upper quadrant DATE: 06/26/2020 07:33 INDICATION: Elevated liver function tests TECHNIQUE: Multiple grayscale and Doppler ultrasound images of the abdomen were obtained. COMPARISON: None available FINDINGS: Bowel gas obscures visualization of the pancreas. The visualized portions of the pancreas a re unremarkable. The liver is normal with normal echogenicity and echotexture. No surface nodularity. Normal hepatopetal flow in the main portal vein. A stone is present in the nondistended gallbladder. There is no pericholecystic fluid or gallbladder wall thickening. The normal common bile duct measur es 4 mm. There was no sonographic Tay sign. IMPRESSION: 1. Cholelithiasis without evidence of cholecystitis. Reviewed, dictated and finalized at location A.
--- NOTE | ~2020-06-24 | XR_ITS ---
EXAMINATION: XR chest 1V portable DATE: 06/24/2020 11:50 INDICATION: Shortness of breath. Congestive heart failure. TECHNIQUE: frontal view of the chest was obtained. COMPARISON: Chest radiograph dated 05/07/2020 FINDINGS: Interval resolution of the prior patchy bilateral airspace opacities. New thin linear discoid atelect asis at the right midlung zone. Opacities at the medial right lower lung zone and favor pulmonary vas culature accentuated by rightward rotation of the patient over pneumonia. No pulmonary edema, pleural effusion or pneumothorax. Cardiomegaly. IMPRESSION: 1. Mild discoid atelectasis in the right midlung zone and opacities at the medial right lung base mor e likely pulmonary vessels exaggerated by rotation rather than pneumonia. 2. Cardiomegaly. Reviewed, dictated and finalized at location B. IMPRESSION: 1. Mild discoid atelectasis in the right midlung zone and opacities at the medi al right lung base more likely pulmonary vessels exaggerated by rotation rather than pneumonia. 2. Cardiomegaly.
--- NOTE | ~2020-06-24 | CT_ITS ---
EXAMINATION: CTA chest PE protocol DATE: 06/24/2020 14:53 INDICATION: Cough. Shortness of breath. TECHNIQUE: Computed tomography angiography (CTA) of the chest was performed with 100 mL Omnipaque-350 intravenous contrast timed to evaluate the pulmonary arteries. Coronal maximum intensity projection 3D-reconstructions were created by the technologist. Automated exposure control and iterative reconst ruction technique were employed. The dose-length product was 590.02 mGy-cm. COMPARISON: Chest CT 05/05/2020 FINDINGS: There are perihilar mild groundglass opacities involving all lobes. There are areas of smoo th septal thickening in the lungs. There are mild peripheral groundglass opacities in the upper lobes . There is a trace right pleural effusion. Cardiomegaly is noted. There is no pulmonary embolus. Ther e is moderate thoracic spondylosis. There is mild chronic anterior wedging of multiple vertebral bodi es. IMPRESSION: 1. No pulmonary embolus. Sensitivity is mildly decreased by motion artifact. 2. Mild diffuse lung disease, likely mild pulmonary edema. 3. Cardiomegaly. Reviewed, dictated and finalized at location A.
--- NOTE | ~2020-06-24 | XR_ITS ---
EXAMINATION: XR chest 2V DATE: 06/26/2020 08:02 INDICATION: Congestive heart failure TECHNIQUE: PA and lateral views of the chest are obtained. COMPARISON: 06/24/2020 FINDINGS: There is stable cardiomegaly. A mild diffuse interstitial pattern persists with improvement . There is a trace right pleural effusion. No pneumothorax is identified. There is moderate thoracic spondylosis. IMPRESSION: 1. Cardiomegaly with improving pulmonary edema. Reviewed, dictated and finalized at location A.
--- NOTE | 2020-06-24 11:12 | ECG_ITS ---
Measurements Intervals [place] Rate: 99 P: 47 PA: 162 QRS: -17 QRSD: 108 T: 147 QT: 406 QTc: 523 Interpretive Statements SINUS RHYTHM POSSIBLE LEFT ATRIAL ENLARGEMENT DELAYED PRECORDIAL R/S TRANSITION LEFT VENTRICULAR HYPERTROPHY AND ST-T CHANGE ST-T WAVE ABNORMALITY IN HIGH LATERAL LEADS- CONSIDER ISCHEMIA ABNORMAL ECG Electronically Signed On 06-24-2020 12:23:28 CDT by Khadar Mckeon D.O.
[2020-06-24 11:35] LABS: Basophils Absolute Auto 0.1 K/mm3 (0.0-0.1); Basophils Percent Auto 0.4 % (0.2-1.2); Eosinophils Absolute Auto 0.3 K/mm3 (0-0.3); Eosinophils Percent Auto 2.2 % (0-4.4); Hematocrit 40.3 % (42.0-52.0); Hemoglobin 13.4 g/dL (14.0-18.0); Immature Granulocyte Absolute 0.04 K/mm3 (0.00-0.031); Immature Granulocyte Percent A 0.3 % (0-0.5); Lymphocytes Absolute Auto 2.24 K/mm3 (0.9-3.2); Lymphocytes Percent Auto 17.5 % (18.3-44.2); Mean Corpuscular HGB Conc 33.3 g/dl (32-36); Mean Corpuscular Hemoglobin 31.4 pg (26-34); Mean Corpuscular Volume 94.4 fl (80-100); Monocytes Absolute Auto 1.2 K/mm3 (0.1-0.6); Monocytes Percent Auto 9.2 % (2.6-8.5); Neutrophils Percent Auto 70.4 % (45.5-73.1); Platelet Count Result 328 k/mm3 (150-375); Red Blood Count 4.27 M/mm3 (4.6-6.20); Red Cell Distribution Width 13.8 % (11.5-14.5); White Blood Count 12.8 K/mm3 (4.5-10.0)
--- NOTE | 2020-06-24 11:45 | ED.GENADULT ---
HPI - General Adult General Chief complaint: Shortness of Breath/Dyspnea Stated complaint: sob and cough Time Seen by Provider: 06/24/20 11:39 Source: patient Mode of arrival: ambulatory Limitations: no limitations History of Present Illness HPI narrative: Patient is a 54-year-old male who presents to emergency department for evaluation of shortness of breath that is been present for the last 2 months had been admitted to the hospital diagnosed with pneumonia completed his medications but has had persistent cough also was negative for cocaine at that time. Patient denies productive cough presents in no distress notes that his symptoms worsen with activity and movement. Patient denies any URI symptoms aside from his dry cough which has been present for 2 months. Related Data Allergies Allergy/AdvReac Type Severity Reaction Status Date / Time No Known Allergies Allergy Verified 05/05/20 15:04 Review of Systems Review of Systems: All systems reviewed & are unremarkable except as noted in HPI and below PMFSH Past Medical History Medical History CHF (congestive heart failure) The patient reports that he had CHF about 6-8 years ago when he lived in [place]. After medication adjustments his cardiac function normalized. 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 He has been going through divorce for the last 4 years. He has 3 adult children who are all healthy and live in [place]. His sister lives nearby. 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 Gender identity (if verbalized by the patient): Male Spiritual care concerns: No Exam Narrative: Exam Narrative: GENERAL: Well-appearing, well-nourished, and in no acute distress. HEAD: Normocephalic, atraumatic. EYES: PERRLA and EOMI. ENT: Nares clear, no rhinorrhea or epistaxis. Mucous membranes moist. Oropharynx without tonsillar hypertrophy exudate or other lesions. NECK: Supple. No adenopathy or masses. CHEST: Clear to auscultation. No respiratory distress. No wheezes rales or rhonchi HEART: Regular rate and rhythm. No murmur heard. Normal peripheral pulses. ABDOMEN: Soft, nontender, distended EXTREMITIES: Normal range of motion. No edema. SKIN: Warm, dry, no rash. NEURO: No focal deficits. Alert and oriented x3. PSYCH: Normal mood and affect. Course Course Emergency Course: Patient in the room at this time in no distress noting headache which she states he has had historically patient will be brought in for concern of elevated troponin and heart failure findings patient given aspirin in the emergency department and medication for his headache Consultations Consultation #1: Discussed case with hospitalist who is agreed to accept the patient would like aspirin only at this time and will consult cardiology Date: 06/24/20 Time: 15:32 Vital Signs Vital signs: Vital Signs Temperature 97.6 F 06/24/20 10:38 Pulse Rate 106 H 06/24/20 10:38 Respiratory Rate 20 06/24/20 10:38 Blood Pressure 154/93 H 06/24/20 10:38 Pulse Oximetry 96 06/24/20 10:38 Temperature 99.0 F 06/24/20 13:55 Pulse Rate 99 06/24/20 13:55 Respiratory Rate 23 H 06/24/20 13:55 Blood
[2020-06-24 11:49] LABS: Anion Gap 7 mmol/L (8-16); Blood Urea Nitrogen 18 mg/dL (9-20); Carbon Dioxide 28 mmol/L (22-30); Chloride 102 mmol/L (98-107); Estimated CRCL calculation 79 ml/min; Potassium 3.2 mmol/L (3.4-5.0); Sodium 137 mmol/L (137-145)
[2020-06-24 11:50] LABS: Calcium 8.5 mg/dL (8.4-10.2); Estimated Glomerular Filt Rate > 60; Glucose 210 mg/dL (75-110)
[2020-06-24 13:53] LABS: INR 1.3; Prothrombin Time 15.8 Seconds (11.1-14.7)
[2020-06-24 13:55] LABS: Partial Thromboplastin Time 27.2 SECONDS (22.3-36.8)
[2020-06-24 13:57] LABS: D Dimer 1.54 ug/mL (<0.48)
[2020-06-24 14:27] LABS: NT Pro B Type Natriuretic Pept 6900 PG/ML (5-100)
[2020-06-24] MEDS: FUROSEMIDE INJ 40 MG/4 ML VIAL IV PUSH (15:33)
[2020-06-24] MEDS: ASPIRIN 81 MG CHEWABLE TABLET 324 MG PO (15:45)
--- NOTE | 2020-06-24 17:00 | PC.NURSE ---
Called IMU for report. Nurse discharging a patient in another room and will call me back.
--- NOTE | 2020-06-24 18:10 | ADMGEN ---
This patient, Hayes Meza, was admitted to IMU Room 209-01 on 06-24-2020 at 1730. Patient/family oriented to hospital policies and general routines including ID bracelet, bed and alarms, visiting hours, pain management, procedures, bathroom and other care routines, personal items, smoking policy, room service/diet, and visiting hours. Valuables list has been completed. Information on how to activate the Rapid Response Team has been discussed. Patient/Family are encouraged to report perceived risks to care and to ask questions if they do not understand what they are told or what they should do.
--- NOTE | 2020-06-24 18:34 | ECG_ITS ---
Measurements Intervals [place] Rate: 99 P: 48 HI: 165 QRS: -15 QRSD: 106 T: 133 QT: 358 QTc: 459 Interpretive Statements SINUS RHYTHM POSSIBLE LEFT ATRIAL ENLARGEMENT DELAYED PRECORDIAL R/S TRANSITION LEFT VENTRICULAR HYPERTROPHY WITH ST-T CHANGE BORDERLINE ST-T WAVE ABNORMALITY- DIFFUSE LEADS BASELINE ARTIFACT- AVL, AVF BORDERLINE ECG Electronically Signed On 06-25-2020 6:48:57 CDT by Khadar Mckeon D.O.
[2020-06-24 18:41] LABS: Cholesterol 102 mg/dL (0-200); HDL Direct 31 mg/dL; Triglycerides 52 mg/dL (<150)
[2020-06-24 18:52] LABS: LDL Cholesterol Direct 55 mg/dL
[2020-06-24 18:58] LABS: Troponin I 0.094 ng/mL (0.000-0.034)
[2020-06-24] MEDS: ACETAMINOPHEN 325 MG TABLET 650 MG PO (20:07)
--- NOTE | 2020-06-24 21:20 | PM.IMHP ---
H&P: HPI History of Present Illness Date/Time: 06/24/20 21:20 Chief complaint: Shortness of breath and fatigue. Narrative: Hayes Meza is a 54-year-old male with chronic systolic congestive heart failure, hypertension, and diet-controlled diabetes who presented to the emergency department earlier today via private vehicle from home for evaluation of shortness of breath and fatigue. He is known to the hospitalist service as he was admitted to us for several days in April 2020, initially with concerns for COVID-19 however he did test negative for such. It looks like he was treated for pneumonia and did require oxygen supplementation for a period of time. Echocardiogram done during that stay showed an ejection fraction of 40 to 45% and it was discovered that he has a history of CHF, and he had been off of his Coreg for several months due to a recent move. His carvedilol was resumed, he was discharged home, and he has been compliant with his medications since. 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 He also notes orthopnea and reports that he frequently wakes in the middle of the night with ?anxiety? and gasping for air. He has been told that he likely has obstructive sleep apnea but has never been tested for such. He has gained about 25 lb since August 2019. He reports a cough for the last couple of months that is nonproductive. He has not had exertional chest pain, pleuritic pain, palpitations, nausea, vomiting, or sweats. No lower extremity edema, recent travel, or history of venous thromboembolism. No history of atrial fibrillation. Review of Systems Review of Systems: Narrative: Twelve systems were reviewed with pertinent positives and negatives as per HPI. Occasional chills. No fever or sweats. He denies sinus congestion, rhinorrhea, otalgia, and odynophagia. No nausea, vomiting, or diarrhea. He denies dysuria. He has daytime somnolence and will frequently fall asleep. Except as documented, all other systems were reviewed and are negative. [facility] Past Medical History Medical History (Updated 06/24/20 @ 23:01 by Kiesha Ramirez PA-C) Diet-controlled diabetes mellitus Essential hypertension Migraine Systolic congestive heart failure The patient reports that he had CHF about 6-8 years ago when he lived in [place]. After medication adjustments his cardiac function normalized. Echocardiogram in April 2020 showed an ejection fraction of 40 to 45%. Surgical History Surgical History (Updated 06/24/20 @ 22:53 by Kiesha Ramirez PA-C) History of cardiac catheterization Approximately 6 years ago and was normal per patient report. Family History Family History Mother Lung cancer Hypertension Father Hypertension Sibling Hypertension Acute myocardial infarction Sibling Hypertension Sibling Hypertension Sibling Hypertension Sibling Hypertension Social History Social History (Updated 06/24/20 @ 22:55 by Kiesha Ramirez PA-C) Social History: Patient is from [place] but moved to the area in August 2019 after he and his . They have 3 grown children. He is currently living in [place] with his sister and [id number]. 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 He is a lifelong nonsmoker. He drinks perhaps 1 alcoholic beverage a week. Has previously used marijuana. He designates his sister, Violetta, as his surrogate decision maker and he wishes to be a full code. Spiritual care concerns: No Meds Home Medications and Allergies Home Medications Medication Instructions Recorded Confirmed Type carvedilol [Coreg] 6.25 mg PO Q12HR #60 tablet 05/09/20 06/24/20 Rx lisinopril-hydrochlorothiazide 1 tablet PO DAILY #30 tablet 05/09/20 06/24/20 Rx ibuprofen 200 mg PO Q6H PRN
--- NOTE | 2020-06-24 21:34 | ECG_ITS ---
Measurements Intervals [place] Rate: 87 P: 56 ID: [id number] QRS: -18 QRSD: 109 T: 142 QT: 415 QTc: 501 Interpretive Statements SINUS RHYTHM POSSIBLE RIGHT ATRIAL ENLARGEMENT POSSIBLE LEFT ATRIAL ENLARGEMENT DELAYED PRECORDIAL R/S TRANSITION LEFT VENTRICULAR HYPERTROPHY WITH ST-T CHANGE T WAVE ABNORMALITY IN LAT/HIGH LAT LEADS- CONSIDER ISCHEMIA ABNORMAL ECG Electronically Signed On 06-25-2020 6:56:26 CDT by Khadar Mckeon D.O.
[2020-06-24] MEDS: carvediloL 6.25 MG TABLET PO (23:31)
[2020-06-24] MEDS: POTASSIUM CHLORIDE 20 MEQ TABLET.ER PO (23:31)
[2020-06-25] VITALS (17 sets, daily range): BP systolic 101–149; BP diastolic 60–97; PULSE 68–103; RESP 18–20; TEMP 36.1–36.9; O2SAT 93–99
[2020-06-25] MEDS: ALPRAZolam 0.5 MG TABLET PO (01:43)
[2020-06-25 05:03] LABS: Hematocrit 41.6 % (42.0-52.0); Hemoglobin 13.9 g/dL (14.0-18.0); Mean Corpuscular HGB Conc 33.4 g/dl (32-36); Mean Corpuscular Hemoglobin 31.5 pg (26-34); Mean Corpuscular Volume 94.3 fl (80-100); Mean Platelet Volume 10.2 fl (7.4-10.4); Platelet Count Result 347 k/mm3 (150-375); Red Blood Count 4.41 M/mm3 (4.6-6.20); Red Cell Distribution Width 13.3 % (11.5-14.5); White Blood Count 12.8 K/mm3 (4.5-10.0)
[2020-06-25 05:22] LABS: Alanine Aminotransferase 232 U/L (4-50); Albumin Level 3.9 g/dL (3.5-5.1); Alkaline Phosphatase 77 U/L (38-126); Anion Gap 7 mmol/L (8-16); Aspartate Amino Transferase 148 U/L (17-59); Bilirubin,Total 0.8 mg/dL (0.2-1.3); Blood Urea Nitrogen 19 mg/dL (9-20); Calcium 8.7 mg/dL (8.4-10.2); Carbon Dioxide 28 mmol/L (22-30); Chloride 103 mmol/L (98-107); Estimated CRCL calculation 82 ml/min; Estimated Glomerular Filt Rate > 60; Glucose 121 mg/dL (75-110); Magnesium 2.1 mg/dL (1.6-2.3); Potassium 3.9 mmol/L (3.4-5.0); Sodium 138 mmol/L (137-145)
--- NOTE | 2020-06-25 07:40 | PC.NURSE ---
ANDREW Claros went into the patient's room to speak with him regarding his need to stay at the hospital for his medical issues for which he was admitted. When Alicia left the room she informed me that the patient still wishes to sign out AMA. I went into the patient's room and spoke with him one more time about staying to which he responded I have been through this song and dance for an hour. I want to leave. I had the patient sign the AMA form and removed his front desk monitor and IV. Patient called his ride and was getting dressed when I stepped out of the room. Patient left the floor at 07:42.
[2020-06-25] MEDS: ASPIRIN 81 MG CHEWABLE TABLET PO (08:10)
[2020-06-25 08:11] LABS: Glucose Point of Care 122 (65-105)
[2020-06-25] MEDS: lisinopriL 20 MG TABLET PO (08:11)
[2020-06-25] MEDS: hydroCHLOROthiazide 25 MG TABLET PO (08:11)
[2020-06-25] MEDS: carvediloL 6.25 MG TABLET PO (08:11)
[2020-06-25] MEDS: FUROSEMIDE INJ 40 MG/4 ML VIAL IV PUSH ×2 (08:12→17:05)
[2020-06-25] MEDS: ENOXAPARIN 40 MG/0.4 ML SYRINGE SUB-Q (08:12)
[2020-06-25] MEDS: POTASSIUM CHLORIDE 20 MEQ TABLET.ER PO ×2 (08:12→17:05)
--- NOTE | 2020-06-25 10:42 | PM.CNCAR ---
Assessment and Plan Assessment and plan (1) Elevated troponin: Code(s): R79.89 - Other specified abnormal findings of blood chemistry Status: Acute Assessment and Plan: not related to ACS. Likely secondary to heart failure (2) Essential hypertension: Code(s): I10 - Essential (primary) hypertension Status: Acute Assessment and Plan: continue current meds but will increase his carvedilol to 12.5 mg p.o. b.i.d. (3) Acute exacerbation of CHF (congestive heart failure): Code(s): I50.9 - Heart failure, unspecified Status: Acute Assessment and Plan: this is acute on chronic systolic congestive heart failure. Will increase his carvedilol to 12.5 mg p.o. b.i.d.. Continue lisinopril / hydrochlorothiazide. Continue IV diuretics with furosemide 40 mg IV q.12 hours today then reduce to 40 mg daily tomorrow then anticipate discharge in 48 hours. Should go home on some furosemide and potassium supplementation. Dosage to be determined. PA and lateral chest x-ray tomorrow (4) Obstructive sleep apnea: Code(s): G47.33 - Obstructive sleep apnea (adult) (pediatric) Status: Acute Assessment and Plan: will consult Dr. Paez as he has untreated sleep apnea. Treatment of his sleep apnea will be vital important for his heart failure He also has evidence of elevated LFTs. Will repeat a comprehensive metabolic panel tomorrow History of Present Illness History of Present Illness Consult date/time: 06/25/20 10:42 Requesting physician: Kiesha Ramirez PA-C Consult reason: congestive heart failure Reason For Visit: Shortness of breath and fatigue. Narrative: date of service 06/25/2020 Reason 4 consultation: CHF History patient is a 54-year-old male who has a history of chronic systolic congestive heart failure. He was seen by Dr. albarran back in April for cardiomyopathy, heart failure, troponins and pneumonia. Patient states he has been progressively more short of breath over the past few weeks to months. He has had paroxysmal nocturnal dyspnea, orthopnea. He denies any chest pain, syncope, presyncope, edema or palpitations. He does have sleep apnea which is not being treated at this point. He states that he is compliant with his medications and does not eat a high salt diet. He was admitted because of worsening shortness of breath and chest x-ray showing some evidence of pulmonary congestion. He was started on IV diuretics. His LFTs are elevated also. He is currently resting in bed and is feeling a little better this point. Review of Systems Review of Systems: All systems reviewed & are unremarkable except as noted in HPI and below Constitutional: Constitutional: Denies weakness Eyes: Eyes: Denies blurry vision ENT: Reports Normal hearing present Cardiovascular: Cardiovascular: Denies chest pain Respiratory: Respiratory: Reports dyspnea Gastrointestinal: Gastrointestinal: Denies abdominal pain Genitourinary: Genitourinary: Denies dysuria Musculoskeletal: Musculoskeletal: Denies neck pain Integumentary/Breasts: Skin/Breast: Denies dry skin Neurologic: Denies headache(s) Psychiatric: Psychiatric: Denies anxiety Endocrine: Endocrine: Denies fatigue Hematologic/Lymphatic: Hematologic/Lymphatic: Denies easy bleeding Allergic/Immunologic: Allergic/Immunologic: Denies GI upset with certain foods and Denies lip swelling PMFSH Past Medical History Medical History Diet-controlled diabetes mellitus Essential hypertension Migraine Systolic congestive heart failure The patient reports that he had CHF about 6-8 years ago when he lived in [place]. After medication adjustments his cardiac function normalized. Echocardiogram in April 2020 showed an ejection fraction of 40 to 45%. Surgical History Surgical History History of cardiac ca
[2020-06-25 12:35] LABS: Glucose Point of Care 88 (65-105)
--- NOTE | 2020-06-25 13:14 | PM.IMPN ---
Progress Note: A&P Assessment and Plan (1) CHF exacerbation: Qualifiers: Heart failure type: systolic Qualified Code(s): I50.23 - Acute on chronic systolic (congestive) heart failure Code(s): I50.9 - Heart failure, unspecified Status: Acute Assessment and Plan: Patient with acute on chronic systolic CHF. Echo in April showing EF 40-45% with normal diastolic function. Presumably nonischemic with normal LHC 6 years ago (per patient report). CTA showing pulmonary edema but no PE. (2) Elevated troponin: Code(s): R79.89 - Other specified abnormal findings of blood chemistry Status: Acute Assessment and Plan: Trop elevated to 0.094 and flat. Similar findings at last hospitalization in April. Probably related to CHF exacerbation. Cardiology following. (3) Elevated LFTs: Code(s): R79.89 - Other specified abnormal findings of blood chemistry Status: Acute Assessment and Plan: AST 148 and ALT 232 this morning. Not checked on admission. Prior values in April were normal. Differential is broad. Consider infectious, medication, congestive. Will check RUQ US and hepatitis panel. TGH 52, TC 102, LDL 55, HDL 31. He is not on statin therapy. Monitor to see if this improves with diuretic therapy. (4) Cough: Code(s): R05 - Cough Status: Acute Assessment and Plan: Chronic. Probably related to above. Can not exclude related to asthma or from FARAZ inhibitors. Will see if this improves with diuretic therapy but consider changing to Cozaar if persistent cough. Cough drops ordered. (5) Diet-controlled diabetes mellitus: Code(s): E11.9 - Type 2 diabetes mellitus without complications Status: Acute Assessment and Plan: The patient's blood glucose was reviewed on 06/25 Glucose remains well controlled. Continue AccuCheks covering with sliding scale. Hypoglycemia protocol available as needed. Not on meds at home. Check A1c (6) Essential hypertension: Code(s): I10 - Essential (primary) hypertension Status: Acute Assessment and Plan: Patient's blood pressure was reviewed on 06/25 Blood pressure well controlled. Will continue current medications with Coreg, Lisinopril and HCTZ (7) Hypokalemia: Code(s): E87.6 - Hypokalemia Status: Acute Assessment and Plan: Potassium 3.2 on admission and has been replaced. Continue daily supplementation. (8) Suspected sleep apnea: Code(s): R29.818 - Other symptoms and signs involving the nervous system Status: Acute Assessment and Plan: Apnea link showing AHI 40.7 and RI 44 on room air for a 4hr test. Will need outpatient sleep study. (9) DVT prophylaxis: Code(s): Z29.9 - Encounter for prophylactic measures, unspecified Status: Acute Assessment and Plan: Lovenox Subjective Date/time seen: 06/25/20 13:14 Interval history: 54yo male with CHF and DM here for CHF exacerbation. No SOB today. No abd or chest pain. No n/v. Has a dry cough. Has been on FARAZ inhibitor for years. COVID test has been negative x2 (last time was 05/07). He has moved up to this area relatively recently from [place] and getting himself set up with local providers. No exposure to blood, needles. Drinks occasional alcohol about once per week. He states he has smitha out of his medicatins for the past few months except for his lisinopril and Coreg. Exam Narrative: Exam Narrative: AF 97.6 137/92 94 20 93% ra Gen - no acute respiratory distress sitting up at side of the bed Chest - CTA bilaterally, nml RR CV - RRR S1/S2
[2020-06-25 17:13] LABS: Glucose Point of Care 160 (65-105)
[2020-06-25] MEDS: ACETAMINOPHEN 325 MG TABLET 650 MG PO (18:28)
[2020-06-25] MEDS: guaiFENesin/DEXTROMETHORPHAN 10 ML UDC 5 ML PO (18:40)
--- NOTE | 2020-06-25 18:58 | PM.CNPUL ---
Assessment and Plan Assessment and plan (1) Obstructive sleep apnea: Code(s): G47.33 - Obstructive sleep apnea (adult) (pediatric) Status: Acute Assessment and Plan: he has severe GINA with an AHI of 40 on ApneaLink last night, completed 06/25/2020. he needs to have PAP therapy set up; His study showed 60% obstructive events, 20% centrals, 19% unclassified. He will likely need a repeat HST or split night study to initiate treatment. He may need in-lab titration if he does not improve with empiric treatment with APAP. APAP can worsen central apneas. 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 He has 20% centrals and 19% unspecified. He spent a prolonged time below 88%, 164 min below 88%, which was 57% of the test. His normal bedtime is not a set time, however he does wake at the same time daily 4:30 am to go to work 6 days a week. He is not refreshed when he wakes. He snores, wakes wit yeboah dry mouth, has dreams, and has nocturia at least 4-5 times a night. He is sleepy in the day, does not fall asleep while working, but can fall asleep easily in the day. On Sundays, he sleeps all day long. He drinks one cold [employer] drink twice a week. his legs Have uncomfortable feelings in them prior to bed in his legs do move quite a bit at night. His memory mood in concentration are not adequate. He does have nightmares which started after August 2019 when his decided to divorce him. The patient was living in [place] and moved to this area immediately to be close to his sister. He now works 6 days a week. he has had nightmares since last August and since that time has also had episodes of feeling paralyzed on waking or falling asleep. He has GERD during the day and at nighttime. He takes a nap around 3:00 p.m. after getting home from work most days. He does take a full day nap on Sundays. [place] = 14 Review of Systems Review of Systems: All systems reviewed & are unremarkable except as noted in HPI and below (lost 40 lb after last Nov, the ngained it back) ENT: Comments: seasonal allergies after moving to this area; nasal drainage, itchy nose, Gastrointestinal: Comments: GERD sxs PMFSH Past Medical History Medical History (Updated 06/25/20 @ 18:07 by Vincent Domínguez MD) Diet-controlled diabetes mellitus Essential hypertension Migraine Obstructive sleep apnea Systolic congestive heart failure The patient reports that he had CHF about 6-8 years ago when he lived in [place]. After medication adjustments his cardiac function normalized. Echocardiogram in April 2020 showed an ejection fraction of 40 to 45%. Surgical History Surgical History History of cardiac catheterization Approximately 6 years ago and was normal per patient report. Family History Family History Mother Lung cancer Hypertension Father Hypertension Sibling Hypertension Acute myocardial infarction Sibling Hypertension Sibling Hypertension Sibling Hypertension Sibling Hypertension Social History Social History Social History: Patient is from [place] but moved to the area in August 2019 after he and his . They have 3 grown children. He is currently living in [place] with his sister and [id number]. 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 He is a lifelong nonsmoker. He drinks perhaps 1 alcoholic beverage a week. Has previously used marijuana
[2020-06-25 20:27] LABS: Glucose Point of Care 124 (65-105)
[2020-06-25] MEDS: carvediloL 12.5 MG TABLET PO (21:43)
[2020-06-25] MEDS: MELATONIN 3 MG TABLET PO (21:43)
[2020-06-26] VITALS (12 sets, daily range): BP systolic 107–135; BP diastolic 75–96; PULSE 66–94; RESP 16–20; TEMP 36.2–36.6; O2SAT 95–99
[2020-06-26 05:21] LABS: Alanine Aminotransferase 162 U/L (4-50); Albumin Level 3.7 g/dL (3.5-5.1); Alkaline Phosphatase 74 U/L (38-126); Anion Gap 7 mmol/L (8-16); Aspartate Amino Transferase 66 U/L (17-59); Blood Urea Nitrogen 28 mg/dL (9-20); Calcium 8.7 mg/dL (8.4-10.2); Carbon Dioxide 28 mmol/L (22-30); Chloride 102 mmol/L (98-107); Estimated CRCL calculation 75 ml/min; Estimated Glomerular Filt Rate > 60; Glucose 135 mg/dL (75-110); Potassium 3.9 mmol/L (3.4-5.0); Sodium 137 mmol/L (137-145)
[2020-06-26 06:04] LABS: Hemoglobin A1C 5.9 % (<5.7)
[2020-06-26 08:35] LABS: Glucose Point of Care 137 (65-105)
[2020-06-26 10:11] LABS: Hepatitis B Surface Antigen Negative (Negative)
[2020-06-26] MEDS: ENOXAPARIN 40 MG/0.4 ML SYRINGE SUB-Q (10:16)
[2020-06-26 10:17] LABS: HAV RESULT Negative (Negative); Hepatitis B Core IgM Result Negative (Negative)
[2020-06-26] MEDS: FUROSEMIDE INJ 40 MG/4 ML VIAL IV PUSH (10:17)
[2020-06-26] MEDS: POTASSIUM CHLORIDE 20 MEQ TABLET.ER PO (10:17)
[2020-06-26] MEDS: lisinopriL 20 MG TABLET PO (10:17)
[2020-06-26] MEDS: carvediloL 12.5 MG TABLET PO (10:17)
[2020-06-26] MEDS: hydroCHLOROthiazide 25 MG TABLET PO (10:18)
[2020-06-26 10:29] LABS: Hepatitis C Virus Antibody Reactive (Negative)
--- NOTE | 2020-06-26 11:22 | PM.PNCARD ---
Progress Note: A&P Assessment and Plan (1) Elevated troponin: Code(s): R79.89 - Other specified abnormal findings of blood chemistry Status: Acute Assessment and Plan: not related to ACS. Likely secondary to heart failure (2) Essential hypertension: Code(s): I10 - Essential (primary) hypertension Status: Acute Assessment and Plan: at goal (3) Acute exacerbation of CHF (congestive heart failure): Code(s): I50.9 - Heart failure, unspecified Status: Acute Assessment and Plan: DC IV furosemide. Start furosemide 20 mg daily. KCL 20 mEq p.o. daily (4) Obstructive sleep apnea: Code(s): G47.33 - Obstructive sleep apnea (adult) (pediatric) Status: Acute Assessment and Plan: follow-up with Dr. Paez He also has evidence of elevated LFTs. Anticipate DC tomorrow Subjective Date/time seen: 06/26/20 11:22 Interval history: 54yo male with CHF and DM here for CHF exacerbation. Date of service 06/26/2020: he denies any chest pain or shortness of breath. Feels good today and breathing is about back to normal Review of Systems Review of Systems: All systems reviewed & are unremarkable except as noted in HPI and below Constitutional: Constitutional: Denies fatigue, Denies headache(s) and Denies weakness Eyes: Eyes: Denies blurry vision ENT: Reports Normal hearing present, Denies headache(s), Denies lip swelling and Denies neck pain Cardiovascular: Cardiovascular: Denies chest pain and Reports dyspnea Respiratory: Respiratory: Reports dyspnea Gastrointestinal: Gastrointestinal: Denies abdominal pain Genitourinary: Genitourinary: Denies dysuria Musculoskeletal: Musculoskeletal: Denies neck pain Integumentary/Breasts: Skin/Breast: Denies dry skin Neurologic: Reports Normal hearing present, Denies headache(s) and Denies weakness Psychiatric: Psychiatric: Denies anxiety Endocrine: Endocrine: Denies fatigue Hematologic/Lymphatic: Hematologic/Lymphatic: Denies easy bleeding Allergic/Immunologic: Allergic/Immunologic: Denies GI upset with certain foods and Denies lip swelling Exam Narrative: Exam Narrative: The patient is awake and alert and oriented. Pleasant and appropriate. Const: General: no acute distress and uncomfortable HENMT: General nose exam: Normal nares present Eyes: Sclera: sclerae normal Neck: Neck: supple and no JVD Chest: Other: No reproducible chest wall pain to palpation Resp: Auscultation: clear to auscultation bilaterally Cardio: Rate: regular rate Rhythm: regular rhythm Skin: General skin exam: normal color Neuro: Cranial nerves: Yes Normal hearing present Cognition (Neuro): normal cognition Speech: normal speech Extrem: General: normal to inspection and no edema Psych: Mental Status: mental status grossly normal Objective Data Vital Signs Vital Signs: Vital Signs - 24 hr 06/25/20 12:00 06/25/20 14:00 06/25/20 14:40 Temperature 36.9 C Pulse Rate 81 96 Respiratory Rate 18 Blood Pressure 127/97 H Pulse Oximetry 99 96 06/25/20 16:00 06/25/20 18:00 06/25/20 19:38 Temperature 36.4 C 36.6 C Pulse Rate 94 97 97 Respiratory Rate 20 18 Blood Pressure 137/92 H 119/79 Pulse Oximetry 93 96 06/25/20 20:00 06/25/20 21:43 06/25/20 22:00 Temperature Pulse Rate 97 85 80 Respiratory Rate 18 Blood Pressure Pulse Oximetry 96 06/25/20 23:48 06/26/20 00:00 06/26/20 02:00 Temperature 36.1 C L Pulse Rate 68 68 66 Respiratory Rate 20 20 Blood Pressure 101/64 Pulse Oximetry 99 99 06/26/20 03:58 06/26/20 04:00 06/26/20 06:00 Temperature 36.4 C Pulse Rate 85 85 74 Respiratory Rate 16 16 Blood Pressure 135/92 H Pulse Oximetry 95 95 06/26/20 07:59 06/26/20 10:17 Temperature 36.2 C L Pulse Rate 86 94 Respiratory Rate 20 Blood Pressure 131/96 H Pulse Oximetry 98 Intake/Output Intake/Output: Intake & Output
[2020-06-26 11:56] LABS: Glucose Point of Care 104 (65-105)
--- NOTE | 2020-06-26 12:58 | PM.DS ---
DS: Admitting Diagnosis Admitting Diagnosis Admitting Diagnosis: Elevated troponin, Acute CHF exacerbation DS: Discharge Diagnosis Discharge Diagnosis (1) CHF exacerbation: Qualifiers: Heart failure type: systolic Qualified Code(s): I50.23 - Acute on chronic systolic (congestive) heart failure Code(s): I50.9 - Heart failure, unspecified Status: Acute Assessment and Plan: Patient with acute on chronic systolic CHF. Echo in April showing EF 40-45% with normal diastolic function. Presumably nonischemic with normal LHC 2 years ago (per patient report). CTA showing pulmonary edema but no PE. Patient much improved with diuretic therapy. Plan for discharge today. (2) Elevated troponin: Code(s): R79.89 - Other specified abnormal findings of blood chemistry Status: Acute Assessment and Plan: Trop elevated to 0.094 and flat. Similar findings at last hospitalization in April. Probably related to CHF exacerbation. Cardiology following. (3) Elevated LFTs: Code(s): R79.89 - Other specified abnormal findings of blood chemistry Status: Acute Assessment and Plan: AST 148 and ALT 232 here. Prior values in April were normal. RUQ US showing gallstones o/w normal. Hepatitis panel negative except HepC Ab and RNA ordered. TG 52, TC 102, LDL 55, HDL 31. He is not on statin therapy. Repeat LFTs improving. Suspect possibly congestive. Repeat after discharge. Follow up on HepC RNA. (4) Cough: Code(s): R05 - Cough Status: Acute Assessment and Plan: Chronic but improved since admission. [place] related to above. (5) Diet-controlled diabetes mellitus: Code(s): E11.9 - Type 2 diabetes mellitus without complications Status: Acute Assessment and Plan: A1c 5.9. The patient's blood glucose was monitored. Glucose remains well controlled. Monitored with AccuCheks covering with sliding scale. Hypoglycemia protocol available as needed. (6) Essential hypertension: Code(s): I10 - Essential (primary) hypertension Status: Acute Assessment and Plan: Patient's blood pressure was monitored Blood pressure remained well controlled. We continued current medications with Coreg, Lisinopril and HCTZ (7) Hypokalemia: Code(s): E87.6 - Hypokalemia Status: Acute Assessment and Plan: Potassium 3.2 on admission and has been replaced. (8) Suspected sleep apnea: Code(s): R29.818 - Other symptoms and signs involving the nervous system Status: Acute Assessment and Plan: Apnea link showing AHI 40.7 and RI 44 on room air for a 4hr test. Pulmonary has evaluated the patient and patient will need outpatient sleep study. DS: Summary Time Spent with Patient Time attestation: Total time spent providing and/or coordinating discharge services: Exam Narrative: Exam Narrative: AF 97.9 107/75 82 20 97% ra Gen - NARD Chest - CTA bilaterally, nml RR CV - RRR S1/S2; Tele showing 6 beat run of NSVT Abd - Soft, NT/ND, Positive BS Ext - No pedal edema Psych - Nml mood and affect Skin - Warm and dry DS: Data Data Completed and Pending Labs on day of discharge: Labs from last 24 hours 06/26/20 06/26/20 06/26/20 11:51 07:26 04:24 Sodium Potassium Chloride Carbon Dioxide Anion Gap BUN Creatinine Estim Creat Clear Calc Estimated GFR Glucose POC Capillary Glucose 104 137 H Hemoglobin A1c Calcium Total Bilirubin AST ALT Al
[2020-06-26] MEDS: ASPIRIN 81 MG CHEWABLE TABLET PO (13:20)
[2020-06-30 18:21] LABS: Hepatitis C RNA, Quant PCR 3230000 IU/mL
--- NOTE | 2020-07-01 14:34 | PC.NURSE ---
HCV RNA PCR elevated at [id number] HCV RNA PCR log elevated at 6.[address] Bower. Dr. Sang couch.
== END 2020-06-26 15:18 | disposition home or self-care (01) | DRG 293 ==
LOC: ANHED 15:38 → ANHIMU 16:41
PROVIDERS: Emergency Medicine Emergency Medical Services; Internal Medicine Cardiovascular Disease; Physician Assistant; Admitting Provider Internal Medicine; Emergency Provider Emergency Medicine; PCP Internal Medicine; Visit Provider Internal Medicine
DX: I11.0 Hypertensive heart disease with heart failure (principal); I50.23 Acute on chronic systolic (congestive) heart failure; E11.9 Type 2 diabetes mellitus without complications; G47.33 Obstructive sleep apnea (adult) (pediatric); E87.6 Hypokalemia; R79.89 Other specified abnormal findings of blood chemistry; R05 Cough; Z79.899 Other long term (current) drug therapy
CPT/HCPCS: 36415; 71045; 71046; 71275; 76705; 80048; 80053; 80061; 80074; 83036; 83735; 83880; 84484; 85025; 85027; 85380; 85610; 85730; 87522; 93005; 94762; 96365; 96372; 96374; 96375; 99285; A9270; G0378; J0131; J1650; J1940; Q9967

== ENCOUNTER 2020-07-09 23:26 | Observation (INO) | payer OTHER, SELFPAY ==
--- NOTE | ~2020-07-09 | XR_ITS ---
XR chest 2V DATE: 07/10/2020 00:27 INDICATION: Shortness of breath, cough. History of congestive heart failure. TECHNIQUE: PA and lateral views COMPARISON: 06/26/2020 PA and lateral chest FINDINGS: Mild cardiomegaly. Minimal aortic unfolding. No hilar or mediastinal enlargement. No pulmon bartolo infiltrate or consolidation, pleural effusion or pulmonary vascular congestion or pneumothorax is detected. Diffuse idiopathic skeletal hyperostosis of the thoracic spine. IMPRESSION: Mild cardiomegaly; no active pulmonary disease or significant change since 06/26/2020 Reviewed, dictated and finalized at location A. IMPRESSION: Mild cardiomegaly; no active pulmonary disease or significant bonilla e since 06/26/2020
[2020-07-09 23:48] VITALS: BP 135/92; PULSE 98; RESP 20; TEMP 36.6; O2SAT 97
--- NOTE | 2020-07-09 23:52 | ECG_ITS ---
Measurements Intervals [place] Rate: 90 P: 52 NE: 169 QRS: -11 QRSD: 106 T: 89 QT: 393 QTc: 483 Interpretive Statements SINUS RHYTHM DELAYED PRECORDIAL R/S TRANSITION LEFT VENTRICULAR HYPERTROPHY WITH ST-T CHANGE CONSIDER INFERIOR INFARCT, AGE INDETERMINATE BORDERLINE T WAVE ABNORMALITY- LATERAL LEADS ABNORMAL ECG Electronically Signed On 07-10-2020 7:00:30 CDT by Khadar Mckeon D.O.
[2020-07-10] VITALS (22 sets, daily range): BP systolic 119–153; BP diastolic 52–116; PULSE 54–101; RESP 16–24; TEMP 36.1–36.6; O2SAT 95–100; BMI 30.9
[2020-07-10 00:11] LABS: Basophils Absolute Auto 0.1 K/mm3 (0.0-0.1); Basophils Percent Auto 0.5 % (0.2-1.2); Eosinophils Absolute Auto 0.2 K/mm3 (0-0.3); Eosinophils Percent Auto 1.8 % (0-4.4); Hemoglobin 14.7 g/dL (14.0-18.0); Immature Granulocyte Absolute 0.06 K/mm3 (0.00-0.031); Immature Granulocyte Percent A 0.5 % (0-0.5); Lymphocytes Absolute Auto 2.46 K/mm3 (0.9-3.2); Lymphocytes Percent Auto 19.3 % (18.3-44.2); Mean Corpuscular HGB Conc 32.7 g/dl (32-36); Mean Corpuscular Hemoglobin 31.2 pg (26-34); Mean Corpuscular Volume 95.5 fl (80-100); Mean Platelet Volume 10.8 fl (7.4-10.4); Monocytes Absolute Auto 1.6 K/mm3 (0.1-0.6); Monocytes Percent Auto 12.5 % (2.6-8.5); Neutrophils Absolute Auto 8.3 K/mm3 (1.3-6.7); Neutrophils Percent Auto 65.4 % (45.5-73.1); Platelet Count Result 266 k/mm3 (150-375); Red Blood Count 4.71 M/mm3 (4.6-6.20); Red Cell Distribution Width 13.4 % (11.5-14.5); White Blood Count 12.7 K/mm3 (4.5-10.0)
[2020-07-10 00:21] LABS: INR 1.1; Partial Thromboplastin Time 25.3 SECONDS (22.3-36.8); Prothrombin Time 13.7 Seconds (11.1-14.7)
[2020-07-10 00:26] LABS: Anion Gap 8 mmol/L (8-16); Blood Urea Nitrogen 25 mg/dL (9-20); Calcium 9.3 mg/dL (8.4-10.2); Carbon Dioxide 25 mmol/L (22-30); Chloride 106 mmol/L (98-107); Estimated CRCL calculation 81 ml/min; Estimated Glomerular Filt Rate > 60; Glucose 136 mg/dL (75-110); Potassium 3.9 mmol/L (3.4-5.0); Sodium 139 mmol/L (137-145)
[2020-07-10 00:41] LABS: NT Pro B Type Natriuretic Pept 9540 PG/ML (5-100); Troponin I 0.042 ng/mL (0.000-0.034)
[2020-07-10 02:37] LABS: D Dimer 0.34 ug/mL (<0.48)
[2020-07-10] MEDS: ACETAMINOPHEN 500 MG TABLET 1000 MG PO (02:48)
[2020-07-10] MEDS: FUROSEMIDE INJ 40 MG/4 ML VIAL IV PUSH ×3 (02:57→20:33)
--- NOTE | 2020-07-10 04:19 | ED.SOB ---
HPI - SOB/Dyspnea General Chief Complaint: Shortness of Breath/Dyspnea Stated Complaint: SOB Time Seen by Provider: 07/10/20 01:46 Source: patient Mode of arrival: ambulatory Limitations: no limitations History of Present Illness HPI Narrative: This patient is a 54 year old male who presents for evaluation of shortness of shortness of breath. He states he has had worsening sob over the past 2 weeks. He states he is unable to sleep , because he is sob when he lays down. She also reports shortness of breath with talking and exertion. He denies chest pain. He reports he has having a dry cough as well. He denies fever, chills, diarrhea, loss of taste. HE has been taking his diuretic. He also reports he is using an inhaler but he is not feeling any better. MD elicited complaint: shortness of breath Related Data Home Medications Medication Instructions Recorded Confirmed alprazolam 1 mg PO HS PRN 06/25/20 07/10/20 Allergies Allergy/AdvReac Type Severity Reaction Status Date / Time No Known Allergies Allergy Verified 07/09/20 23:53 Review of Systems Review of Systems: All systems reviewed & are unremarkable except as noted in HPI and below Constitutional: Constitutional: Denies chills, Reports fatigue and Denies fever(s) Cardiovascular: Cardiovascular: Denies chest pain Respiratory: Respiratory: Reports cough and Reports dyspnea PMFSH Past Medical History Medical History Diet-controlled diabetes mellitus Essential hypertension Migraine Obstructive sleep apnea Systolic congestive heart failure The patient reports that he had CHF about 6-8 years ago when he lived in [place]. After medication adjustments his cardiac function normalized. Echocardiogram in April 2020 showed an ejection fraction of 40 to 45%. Surgical History Surgical History History of cardiac catheterization Approximately 6 years ago and was normal per patient report. Family History Family History Mother Lung cancer Hypertension Father Hypertension Sibling Hypertension Acute myocardial infarction Sibling Hypertension Sibling Hypertension Sibling Hypertension Sibling Hypertension Social History Social History Social History: Patient is from [place] but moved to the area in August 2019 after he and his . They have 3 grown children. He is currently living in [place] with his sister and [id number]. 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 He is a lifelong nonsmoker. He drinks perhaps 1 alcoholic beverage a week. Has previously used marijuana. He designates his sister, Violetta, as his surrogate decision maker and he wishes to be a full code. Smoking status: Never smoker Second hand tobacco smoke exposure: Yes Alcohol intake: current Drinks per week: 1 Substance use: never Living arrangements: with family Occupation/Education: occupation Gender identity (if verbalized by the patient): Male Spiritual care concerns: No Exam Narrative: Exam Narrative: GENERAL: Well-appearing, well-nourished, and in no acute distress. HEAD: Normocephalic, atraumatic EYES: PERRLA and EOMI, conjunctiva clear without discharge THROAT:Mucous membranes moist, Oropharynx normal without erythema, exudate, peritonsillar swelling or fluctuance NECK: Supple, without lymphadenopathy or mass RESPIRATORY: No respiratory distress, Airway patent, Respirations non-labored, Clear to auscultation without rales, rhonchi or wheeze HEART: Regular rate and rhythm. No murmur heard. Normal peripheral pulses. ABDOMEN: Soft, nontender, nondistended, normal active bowel sounds. No masses. No rebound or guarding, No organomegaly. EXTREMITIES: No edema, normal strength
[2020-07-10 05:23] LABS: Troponin I 0.044 ng/mL (0.000-0.034)
--- NOTE | 2020-07-10 05:59 | PC.NURSE ---
This patient, Hayes Meza, was admitted to IMU Room 209-01. Patient/family oriented to hospital policies and general routines including ID bracelet, bed and alarms, visiting hours, pain management, procedures, bathroom and other care routines, personal items, smoking policy, room service/diet, and visiting hours. Valuables list has been completed. Information on how to activate the Rapid Response Team has been discussed. Patient/Family are encouraged to report perceived risks to care and to ask questions if they do not understand what they are told or what they should do.
[2020-07-10] MEDS: POTASSIUM CHLORIDE 10 MEQ TABLET.ER PO ×2 (10:43→17:36)
[2020-07-10] MEDS: carvediloL 12.5 MG TABLET PO ×2 (10:43→20:33)
--- NOTE | 2020-07-10 11:52 | PM.IMHP ---
H&P: HPI History of Present Illness Date/Time: 07/10/20 11:52 Chief complaint: CHF exacerbation Narrative: Hayes Meza is a 54 year old male with a history of systolic congestive heart failure, hypertension, diet-controlled diabetes, who presented to the ER with worsening orthopnea, dyspnea on exertion and weight gain over the last few days. The patient was just recently admitted and discharged on June 26, 2020 with similar symptoms. He tried to call the primary care provider and grocery specialist for an earlier appointment both unable to get insert decided to come to the ER. He states once he left he was taking all his medications as prescribed, Lasix 20 mg twice a day and Coreg. He states he does not eat any processed foods and does not add salt to his diet. He denies any changes to his diet recently. Over the last few days he has noticed an increase in shortness of breath with walking around, orthopnea, shortness of breath with talking and waking up gasping for air in the middle the night. He also has noticed some weight gain in some abdominal distension. He also reports a dry cough over the last few weeks for which he has tried taking [id number] medications without any relief. He also feels some slight wheezing in states last time he was here he had an albuterol inhaler which helped. He denies any chest pain, fever, chills, nausea, vomiting, abdominal pain, diarrhea, constipation, leg swelling, calf pain, lightheadedness, dizziness, syncope, urinary symptoms or any other symptoms at this time. CODE: Full Code POA: Violetta Salcido PCP: Dr. Bower Review of Systems Review of Systems: All systems reviewed & are unremarkable except as noted in HPI and below PMFSH Past Medical History Medical History Diet-controlled diabetes mellitus Essential hypertension Migraine Obstructive sleep apnea Systolic congestive heart failure The patient reports that he had CHF about 6-8 years ago when he lived in [place]. After medication adjustments his cardiac function normalized. Echocardiogram in April 2020 showed an ejection fraction of 40 to 45%. Surgical History Surgical History History of cardiac catheterization Approximately 6 years ago and was normal per patient report. Family History Family History Mother Lung cancer Hypertension Father Hypertension Sibling Hypertension Acute myocardial infarction Sibling Hypertension Sibling Hypertension Sibling Hypertension Sibling Hypertension Social History Social History Social History: Patient is from [place] but moved to the area in August 2019 after he and his . They have 3 grown children. He is currently living in [place] with his sister and [id number]. 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 He is a lifelong nonsmoker. He drinks perhaps 1 alcoholic beverage a week. Has previously used marijuana. He designates his sister, Violetta, as his surrogate decision maker and he wishes to be a full code. Smoking status: Never smoker Second hand tobacco smoke exposure: Yes Alcohol intake: current Drinks per week: 1 Substance use: never Living arrangements: with family Occupation/Education: occupation Gender identity (if verbalized by the patient): Male Spiritual care concerns: No Meds Home Medications and Allergies Home Medications Medication Instructions Recorded Confirmed Type alprazolam 1 mg PO HS PRN 06/25/20 07/10/20 History carvedilol [Coreg] 12.5 mg PO Q12HR #60 tablet 06/25/20 07/10/20 Rx furosemide 20 mg PO DAILY #30 tablet 06/26/20 07/10/20 Rx Allergies Allergy/AdvReac Type Severity Reaction Status Date / Time No Known Allergies Allergy Verif
[2020-07-10] MEDS: BENZONATATE 100 MG CAPSULE PO ×2 (13:33→17:36)
[2020-07-10] MEDS: ALBUTEROL SULFATE (*SP) AEROSOL 1 PUFF 2 PUFF INHALATION ×2 (17:20→21:03)
[2020-07-10] MEDS: ALPRAZolam (*CRX) 0.5 MG TABLET 1 MG PO (20:33)
[2020-07-11] VITALS (8 sets, daily range): BP systolic 109–133; BP diastolic 80–103; PULSE 67–95; RESP 18–20; TEMP 36.3–36.6; O2SAT 95–99
[2020-07-11 04:49] LABS: Anion Gap 7 mmol/L (8-16); Blood Urea Nitrogen 28 mg/dL (9-20); Calcium 8.9 mg/dL (8.4-10.2); Carbon Dioxide 29 mmol/L (22-30); Chloride 101 mmol/L (98-107); Estimated CRCL calculation 74 ml/min; Estimated Glomerular Filt Rate > 60; Glucose 125 mg/dL (75-110); Potassium 4.2 mmol/L (3.4-5.0); Sodium 137 mmol/L (137-145)
[2020-07-11] MEDS: BENZONATATE 100 MG CAPSULE PO ×2 (08:45→12:45)
[2020-07-11] MEDS: carvediloL 12.5 MG TABLET PO (08:46)
[2020-07-11] MEDS: FUROSEMIDE INJ 40 MG/4 ML VIAL IV PUSH (08:46)
[2020-07-11] MEDS: POTASSIUM CHLORIDE 10 MEQ TABLET.ER PO (08:46)
[2020-07-11] MEDS: ENOXAPARIN 40 MG/0.4 ML SYRINGE SUB-Q (08:47)
[2020-07-11] MEDS: ALBUTEROL SULFATE (*SP) AEROSOL 1 PUFF 2 PUFF INHALATION ×2 (08:50→12:48)
--- NOTE | 2020-07-11 10:45 | PM.CNCAR ---
Assessment and Plan Assessment and plan (1) Acute on chronic systolic and diastolic heart failure, NYHA class 2: Code(s): I50.43 - Acute on chronic combined systolic (congestive) and diastolic (congestive) heart failure Status: Acute Assessment and Plan: Patient is currently compensated at this time and at baseline per his description. Acute exacerbation secondary to uncontrolled hypertension, untreated obstructive sleep apnea who states he was taken off lisinopril and hydrochlorothiazide and his prior hospitalization. Resume lisinopril /hydrochlorothiazide 20/25 mg daily. Increase Lasix to 40 mg p.o. twice daily for 3 days then 40 mg p.o. daily. Continue potassium chloride supplementation 10 mEq twice daily. Patient is adamant he has history of cough with carvedilol and not lisinopril. Discontinue Coreg in favor of Toprol-XL 100 mg daily. BMP in 1 week post discharge. Follow-up [facility] as scheduled in 2 weeks. Outpatient sleep study JESUSITA with Pulmonology. patient is adamant he has been compliant medications, diet including low sodium and eats well. He knows his untreated sleep apnea is complicating his management. [facility]) Elevated troponin: Code(s): R79.89 - Other specified abnormal findings of blood chemistry Status: Acute Assessment and Plan: secondary to decompensated heart failure, type 2 infarct not acute coronary syndrome. (3) GINA (obstructive sleep apnea): Code(s): G47.33 - Obstructive sleep apnea (adult) (pediatric) Status: Acute Assessment and Plan: Untreated, severe, no doubt contributing to decompensated heart failure and hypertension (4) Hypertension: Code(s): I10 - Essential (primary) hypertension Status: Acute Assessment and Plan: uncontrolled at presentation. Resume prior cardiovascular medical therapy as noted above. (5) Nonischemic cardiomyopathy: Code(s): I42.8 - Other cardiomyopathies Status: Acute Assessment and Plan: EF previously documented 40-45%. Continue medical therapy as above. (6) Diet-controlled diabetes mellitus: Code(s): E11.9 - Type 2 diabetes mellitus without complications Status: Acute Assessment and Plan: Per primary service. History of Present Illness History of Present Illness Consult date/time: Date of service:07/11/20 10:45 Cardiology [facility] opinion regarding CHF. Requesting physician: Chelsea Garcia PA-C Consult reason: congestive heart failure Reason For Visit: CHF exacerbation Narrative: Patient is a very pleasant 54-year-old male with a history of nonischemic cardiomyopathy chronic chronic systolic and diastolic heart failure, hypertension, diabetes mellitus and severe obstructive sleep apnea untreated who was recently discharged septum face after being admitted with similar CHF exacerbation. He was stabilized with intravenous Lasix and discharged home on carvedilol 12.5 mg twice daily, Lasix 20 mg daily as well as lisinopril hydrochlorothiazide 20/25 mg once daily. Patient states this was actually discontinued but his discharge medication list does not reflect this. However, he was not taking lisinopril hydrochlorothiazide as an outpatient as he felt it was discontinued and was confused as to why. He was attempting to make follow-up appointments due to worsening orthopnea, shortness of breath with activity past several days as well as weight gain and abdominal fullness. He denies edema at any time. He has been following a low-sodium diet, compliant with medications as he believes were prescribed. He denies chest pain, near-syncope or syncope. No palpitations. No recent illnesses, fevers, sick contacts or chest pain. Currently patient feels very well after receiving intravenous Lasix. Review of Systems Review of Systems:
--- NOTE | 2020-07-11 12:40 | PM.DS ---
DS: Admitting Diagnosis Admitting Diagnosis Admitting Diagnosis: CHF exacerbation DS: Discharge Diagnosis Discharge Diagnosis (1) Acute on chronic systolic CHF (congestive heart failure): Code(s): I50.23 - Acute on chronic systolic (congestive) heart failure Status: Acute Assessment and Plan: Patient has a history of an EF of 40-45% and a heart catheterization about 6 years ago showing no acute coronary artery disease. Patient's chest x-ray shows pulmonary edema, BNP is elevated more than prior admissions at 9540, patient has symptoms suggesting acute congestive heart failure even despite taking his home medications as directed. Patient was admitted to the hospital in started on IV Lasix 40 mg b.i.d. and some potassium supplementation 10 mEq b.i.d. Cardiology evaluated the patient and restarted his lisinopril and hydrochlorothiazide, increased his Lasix at home to 40 mg p.o. twice daily for 3 days, then to decrease to 40 mg p.o. daily. Cardiology wants to continue his potassium supplementation 10 mEq twice daily. Patient also states his cough is related to carvedilol usage so Cardiology switched him from Coreg to metoprolol XL 100 mg daily. Will check BMP in 1 week. Follow[facility]up [facility] as scheduled in 2 weeks. Patient understands and agrees with the plan all questions answered. (2) Cough: Code(s): R05 - Cough Status: Acute Assessment and Plan: Patient reporting a dry cough for the last few weeks. Could be reactive airway disease since albuterol inhaler had helped, will order albuterol inhaler to see if it improves. Patient states it could be his Coreg, so it was switched to metoprolol. Will continue p.r.n. throat lozenges, cough syrup, Tessalon Perles and will give him albuterol inhaler to take and use as needed for shortness of breath. (3) Elevated troponin: Code(s): R79.89 - Other specified abnormal findings of blood chemistry Status: Acute Assessment and Plan: Troponins are slightly elevated and flat. He is not having any chest pain and symptoms seem to be more related to his CHF exacerbation and his prior hospitalization workup. Cardiology does 1 any other workup at this time and believes is from CHF exacerbation. (4) Suspected sleep apnea: Code(s): R29.818 - Other symptoms and signs involving the nervous system Status: Acute Assessment and Plan: Patient was seen by Dr. Paez last visit for possible sleep apnea and has been trying to get set up for an outpatient sleep study. This is not happened yet. I believe he does have underlying sleep apnea but he needs to testing before 1 can be prescribed. DS: Summary Hospital Course Reason for hospitalization: Hayes Meza is a 54 year old male with a history of systolic congestive heart failure, hypertension, diet-controlled diabetes, who presented to the ER with worsening orthopnea, dyspnea on exertion and weight gain over the last few days. The patient was just recently admitted and discharged on June 26, 2020 with similar symptoms. Initial vitals showed, temp 97.9F, BP 135/92, HR 98, RR 20, O2 97% on RA. Initial labs showed leukocytosis 12,700, normal diff, normal coag, normal d-dimer, BMP showed Cr 1.0, BUN 25, glucose 136. Troponin showed 0.042, 0.044, 0.040. BNP showed 9540. CXR showed Mild cardiomegaly; no active pulmonary disease or significant change since 06/26/2020. Patient was admitted into the hospital under observation status to be given IV Lasix, cardiology consultation for further evaluation and treatment. Patient was given IV Lasix with improvement his shortness of breath, orthopnea and dyspnea on exertion. Cardiology evaluated the patient and adjusted his home medications. Patient will continue irena
== END 2020-07-11 13:37 | disposition home or self-care (01) ==
LOC: ANHED 07-10 04:43 → ANHIMU 07-10 04:57
PROVIDERS: Physician Assistant; Admitting Provider Internal Medicine; Emergency Provider General Practice; PCP Internal Medicine; Visit Provider Family Medicine
DX: I50.23 Acute on chronic systolic (congestive) heart failure (principal); I11.0 Hypertensive heart disease with heart failure; R74.8 Abnormal levels of other serum enzymes; R94.31 Abnormal electrocardiogram [ECG] [EKG]; R79.89 Other specified abnormal findings of blood chemistry; I42.8 Other cardiomyopathies; R05 Cough; E11.9 Type 2 diabetes mellitus without complications; G47.33 Obstructive sleep apnea (adult) (pediatric); G43.909 Migraine, unspecified, not intractable, without status migrainosus
CPT/HCPCS: 36415; 71046; 80048; 83880; 84484; 85025; 85380; 85610; 85730; 93005; 94640; 96365; 96366; 96372; 96374; 96376; 99285; A9270; G0378; J0131; J1650; J1940

== ENCOUNTER 2020-07-20 12:08 | Outpatient (CLI) | payer OTHER, SELFPAY ==
[2020-07-20 13:01] LABS: Hemoglobin A1C 6.3 % (<5.7)
[2020-07-20 13:04] LABS: Alanine Aminotransferase 65 U/L (4-50); Albumin Level 4.6 g/dL (3.5-5.1); Alkaline Phosphatase 63 U/L (38-126); Anion Gap 10 mmol/L (8-16); Aspartate Amino Transferase 58 U/L (17-59); Bilirubin,Total 1.1 mg/dL (0.2-1.3); Blood Urea Nitrogen 25 mg/dL (9-20); Calcium 9.8 mg/dL (8.4-10.2); Carbon Dioxide 33 mmol/L (22-30); Chloride 98 mmol/L (98-107); Estimated Glomerular Filt Rate > 60; Glucose 92 mg/dL (75-110); INR 0.9; Potassium 3.4 mmol/L (3.4-5.0); Prothrombin Time 12.3 Seconds (11.1-14.7); Sodium 141 mmol/L (137-145)
== END 2020-07-20 12:09 | disposition home or self-care (01) ==
LOC: ANHLAB 12:10
PROVIDERS: PCP Internal Medicine; Visit Provider Internal Medicine
DX: I42.8 Other cardiomyopathies (principal); I10 Essential (primary) hypertension; B19.20 Unspecified viral hepatitis C without hepatic coma; E11.9 Type 2 diabetes mellitus without complications
CPT/HCPCS: 36415; 80053; 83036; 85610

== ENCOUNTER 2021-11-16 08:59 | Emergency (ER) | payer OTHER, SELFPAY ==
[2021-11-16] VITALS (31 sets, daily range): BP systolic 117–142; BP diastolic 80–103; PULSE 75–98; RESP 11–24; TEMP 36.4–36.7; O2SAT 82–100
--- NOTE | ~2021-11-16 | CT_ITS ---
EXAMINATION: CTA chest PE protocol EXAM DATE: 11/16/2021 11:45 INDICATION: Shortness of breath, elevated dimer, covid pui . TECHNIQUE: Spiral CTA of the chest (pulmonary arteries) was performed with 100 cc Omnipaque 350 intr avenous contrast injection. Images were acquired during the pulmonary arterial phase. Coronal maxi mum intensity projection 3D-reconstructions were created by the technologist on dedicated workstation . Axial, coronal and sagittal reformatted images were reviewed. The dose-length product (DLP) for t his examination was 491.15 mGy-cm. The exposure was tailored according to patient size (auto mA exp osure control), and iterative reconstruction (ASIR) was used as additional dose reduction technique. Comparison is made to prior examination from 06/24/2020. FINDINGS: Pulmonary arteries are well opacified and without intraluminal filling defects. No thora cic aortic dissection. There is mosaic attenuation involving both lungs, similar appearance to prior study. Differential power gnosis for this includes air trapping (asthma, bronchiolitis obliterans), vasculitis, or groundglass opacity. Groundglass opacity can be caused acutely by edema, infection (viral pneumonia, PCP in an i mmunocompromised patients), or hemorrhage. It can also be caused by chronic processes such as hypers ensitivity pneumonitis, nonspecific interstitial pneumonitis (NSIP), cryptogenic organized pneumonia, desquamative interstitial pneumonitis(DIP). Trace pericardial effusion. Tracheobronchial tree is patent. There is no mediastinal, hilar or axi llary lymphadenopathy. There is no pneumothorax. There is moderate cardiomegaly. There is minima l coronary arterial calcification, arterial sclerosis. Upper abdomen is unremarkable. There is mod erate thoracic spondylosis without osteoblastic or osteolytic lesions identified. IMPRESSION: 1. Bilateral mosaic attenuation, could be air trapping or mild pulmonary edema. Viral pneumonia not excludable, but similar appearance was present on prior 2019 study. 2. Moderate cardiomegaly. 3. No pulmonary emboli. Reviewed, dictated and finalized at location A. TEST DESK WORKER IMPRESSION: 1. Bilateral mosaic attenuation, could be air trapping or mild pulmonary edema . Viral pneumonia not excludable, but similar appearance was present on prior 2 020 study. 2. Moderate cardiomegaly. 3. No pulmonary emboli.
--- NOTE | ~2021-11-16 | CT_ITS ---
EXAMINATION: CT brain wo con EXAM DATE: 11/16/2021 10:44 INDICATION: dizziness TECHNIQUE: Spiral CT of the head was performed without contrast. Axial, coronal and sagittal images were reviewed. The dose-length product (DLP) for this examination was 605.33 mGy-cm. The exposure w as tailored according to patient size, and iterative reconstruction (ASIR) was used as additional dos e reduction technique. There is no prior study for comparison. FINDINGS: There is no acute intraparenchymal hemorrhage. No evidence of intraparenchymal brain mass lesion. No evidence of acute infarction. There is no mass effect or midline shift. The ventricles are normal in size. There are no extra-axial collections. There are no acute calvarial fractures. T he orbits are unremarkable. Soft tissue is unremarkable. The visualized sinuses and mastoid air nany ls are well aerated. IMPRESSION: 1. No acute intracranial findings. Reviewed, dictated and finalized at location A. LVING INVENTORY CLERK
--- NOTE | ~2021-11-16 | XR_ITS ---
EXAMINATION: XR chest 1V portable DATE: 11/16/2021 10:38 INDICATION: Cough and shortness of breath. TECHNIQUE: A single frontal view of the chest was obtained. COMPARISON: Chest 2 views 07/10/2020, chest CT 06/24/2020 FINDINGS: The chest demonstrates clear lungs without pneumonia, pleural effusion, or pneumothorax. Ca rdiomegaly is noted. IMPRESSION: 1. Cardiomegaly. Reviewed, dictated and finalized at location A. P KILLER IMPRESSION: 1. Cardiomegaly.
--- NOTE | 2021-11-16 10:33 | ECG_ITS ---
Measurements Intervals [place] Rate: 79 P: 21 MA: 170 QRS: -37 QRSD: 105 T: 145 QT: 386 QTc: 444 Interpretive Statements SINUS RHYTHM LEFT AXIS DEVIATION POSSIBLE LEFT ATRIAL ENLARGEMENT LEFT VENTRICULAR HYPERTROPHY AND ST-T CHANGE DELAYED PRECORDIAL R/S TRANSITION INFERIOR INFARCT, AGE INDETERMINATE T WAVE ABNORMALITY IN ANTEROLATERAL LEADS- CONSIDER ISCHEMIA BASELINE ARTIFACT- I, II, III ABNORMAL ECG Electronically Signed On 11-16-2021 12:23:30 MARKETING AND PUBLIC RELATIONS MANAGER by Khadar Mckeon D.O.
--- NOTE | 2021-11-16 10:37 | ED.URI ---
HPI - URI/Sore Throat General Chief Complaint: Upper Respiratory Infection <Naya Maurer PA-C - Last Filed: 11/16/21 17:30> Stated Complaint: cough <BELLO Denson Last Filed: 11/16/21 17:30> Time Seen by Provider: 11/16/21 10:21 <Naya Maurer PA-C - Last Filed: 11/16/21 17:30> Source: patient <BELLO Denson Last Filed: 11/16/21 17:30> Mode of arrival: ambulatory <BELLO Denson Last Filed: 11/16/21 17:30> Limitations: no limitations <BELLO Denson Last Filed: 11/16/21 17:30> History of Present Illness HPI Narrative: This is a 56 year old male that presents to the ER for cold symptoms present over the last couple of days. Reports cough, sore throat, and shortness of breath. Reports he has also had some dizzy spells. Reports after coughing he has had a couple episodes where the room is spinning. Reports no current dizziness. Reports chills. He is COVID vaccinated. Denies fever, chest pain or lower extremity edema. <Naya Maurer PA-C - Last Filed: 11/16/21 17:30> Related Data Allergies/Adverse Reactions: Allergies Allergy/AdvReac Type Severity Reaction Status Date / Time No Known Allergies Allergy Verified 11/16/21 10:07 <Naya Maurer PA-C - Last Filed: 11/16/21 17:30> Review of Systems Review of Systems: CONSTITUTIONAL: Reports chills. Denies fever ENT: Reports congestion, sore throat CARDIOVASCULAR: Denies chest pain, or edema. RESPIRATORY: Reports cough and dyspnea. NEUROLOGIC: Denies numbness, or weakness. <BELLO Denson Last Filed: 11/16/21 17:30> All systems reviewed & are unremarkable except as noted in HPI and below <BELLO Denson Last Filed: 11/16/21 17:30> [facility] Past Medical History Medical History: Medical History (Updated 11/16/21 @ 16:43 by Naya Maurer PA-C) Anxiety Arthritis Diet-controlled diabetes mellitus Essential hypertension Hepatitis C Migraine Obstructive sleep apnea Shoulder pain, right Systolic congestive heart failure The patient reports that he had CHF about 6-8 years ago when he lived in [place]. After medication adjustments his cardiac function normalized. Echocardiogram in April 2020 showed an ejection fraction of 40 to 45%. <Naya Maurer PA-C - Last Filed: 11/16/21 17:30> Surgical History Surgical History: Surgical History History of cardiac catheterization Approximately 6 years ago and was normal per patient report. <Naya Maurer PA-C - Last Filed: 11/16/21 17:30> Family History Family History: Family History Mother Lung cancer Hypertension Father Hypertension Sibling Hypertension Acute myocardial infarction Sibling Hypertension Sibling Hypertension Sibling Hypertension Sibling Hypertension <Naya Maurer PA-C - Last Filed: 11/16/21 17:30> Social History Social History: Social History Social History: Patient is from [place] but moved to the area in August 2019 after he and his . They have 3 grown children. He is currently living in [place] with his sister and [id number]. 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 He is a lifelong nonsmoker. He drinks perhaps 1 alcoholic beverage a week. Has previously used marijuana. He designates his sister, Violetta, as his surrogate decision maker and he wishes to be a full code. Smoking status: Never smoker Second hand tobacco smoke exposure: Yes Alcohol intake: current Drinks per week: 1 Alcohol use details: He drinks 1-2 mixed drinks a day. Substance use: never Gender identity (if verbalized by the patient): Male Spiritual care concerns: No <Naya Maurer PA-C - Last Filed: 11/16/21 17:30> Exam Narrative: GENERAL: Well-appear
[2021-11-16 10:59] LABS: Basophils Absolute Auto 0.1 K/mm3 (0.0-0.1); Basophils Percent Auto 0.5 % (0.2-1.2); Eosinophils Absolute Auto 0.4 K/mm3 (0-0.3); Eosinophils Percent Auto 3.6 % (0-4.4); Hematocrit 49.9 % (42.0-52.0); Hemoglobin 16.7 g/dL (14.0-18.0); Immature Granulocyte Absolute 0.06 K/mm3 (0.00-0.031); Immature Granulocyte Percent A 0.5 % (0-0.5); Lymphocytes Absolute Auto 2.68 K/mm3 (0.9-3.2); Lymphocytes Percent Auto 22.6 % (18.3-44.2); Mean Corpuscular HGB Conc 33.5 g/dl (32-36); Mean Corpuscular Hemoglobin 31.8 pg (26-34); Mean Platelet Volume 9.6 fl (7.4-10.4); Monocytes Absolute Auto 1.7 K/mm3 (0.1-0.6); Monocytes Percent Auto 14.7 % (2.6-8.5); Neutrophils Absolute Auto 6.9 K/mm3 (1.3-6.7); Neutrophils Percent Auto 58.1 % (45.5-73.1); Platelet Count Result 461 k/mm3 (150-375); Red Blood Count 5.25 M/mm3 (4.6-6.20); Red Cell Distribution Width 13.4 % (11.5-14.5); White Blood Count 11.9 K/mm3 (4.5-10.0)
[2021-11-16 11:08] LABS: Alanine Aminotransferase 66 U/L (4-50); Albumin Level 4.6 g/dL (3.5-5.1); Alkaline Phosphatase 79 U/L (38-126); Anion Gap 9 mmol/L (8-16); Aspartate Amino Transferase 43 U/L (17-59); Bilirubin,Total 1.1 mg/dL (0.2-1.3); Blood Urea Nitrogen 30 mg/dL (9-20); Calcium 9.3 mg/dL (8.4-10.2); Carbon Dioxide 29 mmol/L (22-30); Chloride 101 mmol/L (98-107); Estimated CRCL calculation 64 ml/min; Estimated Glomerular Filt Rate > 60; Glucose 115 mg/dL (65-110); Lactate Dehydrogenase 651 U/L (313-618); Sodium 139 mmol/L (137-145)
[2021-11-16 11:12] LABS: Prothrombin Time 13.2 Seconds (11.1-14.7)
[2021-11-16 11:13] LABS: Partial Thromboplastin Time 28.2 SECONDS (22.3-36.8)
[2021-11-16 11:15] LABS: D Dimer 1.15 ug/mL (<0.48)
[2021-11-16 11:17] LABS: NT Pro B Type Natriuretic Pept 1030 pg/mL (5-100)
[2021-11-16] MEDS: ALBUTEROL SULFATE (*SP) AEROSOL 1 PUFF 2 PUFF INHALATION (12:24)
[2021-11-16] MEDS: MECLIZINE HCL 25 MG TABLET PO (13:04)
[2021-11-16] MEDS: ONDANSETRON INJ 4 MG/2 ML VIAL IV PUSH (13:04)
[2021-11-16 19:36] LABS: SARS-CoV-2 RNA PCR Negative
== END 2021-11-16 17:35 | disposition home or self-care (01) ==
LOC: ANHED 16:43 → ANH3MEDSUR 17:07
PROVIDERS: Physician Assistant; Emergency Provider Emergency Medicine; PCP Internal Medicine
DX: R42 Dizziness and giddiness (principal); Z20.822 Contact with and (suspected) exposure to COVID-19; E11.9 Type 2 diabetes mellitus without complications; I11.0 Hypertensive heart disease with heart failure; I50.20 Unspecified systolic (congestive) heart failure; G47.33 Obstructive sleep apnea (adult) (pediatric); M19.90 Unspecified osteoarthritis, unspecified site; F41.9 Anxiety disorder, unspecified; Z86.19 Personal history of other infectious and parasitic diseases; Z77.22 Contact with and (suspected) exposure to environmental tobacco smoke (acute) (chronic); I51.7 Cardiomegaly; R91.8 Other nonspecific abnormal finding of lung field
CPT/HCPCS: 36415; 70450; 71045; 71275; 80053; 82728; 83615; 83880; 85025; 85380; 85610; 85730; 87081; 87804; 87880; 93005; 96374; 99284; A9270; C9803; J2405; Q9967; U0003; U0005

== ENCOUNTER 2022-01-18 09:14 | Observation (INO) | payer OTHER, SELFPAY ==
[2022-01-18] VITALS (24 sets, daily range): BP systolic 122–155; BP diastolic 86–102; PULSE 87–108; RESP 12–25; TEMP 36.4–36.8; O2SAT 92–100; BMI 30.2; BMI 30.4
--- NOTE | 2022-01-18 | ECHO_ITS ---
Patient Info Name: Hayes Meza Age: 56 years : 1965 Gender: Male Ht: 68 in Wt: 200 lbs BSA: 2.11 m2 HR: 92 bpm BP: 135 / 99 mmHg Heart Rhythm: Sinus Rhythm Technical Quality: Good Exam Date: 01/18/2022 4:28 PM Exam Location: [facility] Exam Room: [facility] Patient Status: Outpatient Admit Date: 01/18/2022 Staff Ordering Physician: Shey Corral APRN Lumber Hacker: Marifer French RDCS Attending Provider: Vincent Domínguez MD Referring Physician: Shayna ALBERT; Exam Type: CA echo doppler color flow Study Info Indications - chf nicm htn Complete two-dimensional, color flow and Doppler transthoracic echocardiogram is performed. Summary 1. Complete two-dimensional, color flow and Doppler transthoracic echocardiogram is performed. 2. Left ventricular chamber dimension is moderately enlarged. 3. There is mildly increased left ventricular wall thickness. 4. The left ventricular diastolic function is grade II diastolic dysfunction. 5. Left atrial chamber dimension is moderately enlarged. 6. Right atrial chamber dimension is moderately enlarged. 7. There is mild aortic valve regurgitation. 8. There is mild to moderate mitral valve regurgitation. 9. There is trace tricuspid valve regurgitation. 10. Mild pulmonary hypertension, estimated pulmonary arterial systolic pressure is 36 mmHg. Left Ventricle Left ventricular chamber dimension is moderately enlarged. Left ventricular systolic function is severely reduced, estimated at 25-30%. There is mildly increased left ventricular wall thickness. The left ventricular diastolic function is grade II diastolic dysfunction. Right Ventricle Right ventricular chamber dimension is normal. Right ventricular systolic function is normal. Left Atria Left atrial chamber dimension is moderately enlarged. Right Atria Right atrial chamber dimension is moderately enlarged. Aortic Valve The aortic valve is probable trileaflet. There is mild aortic valve sclerosis. There is no aortic valve stenosis. There is mild aortic valve regurgitation. Pulmonic Valve The pulmonic valve is not well visualized. There is trace pulmonic regurgitation. Mitral Valve The mitral valve has normal leaflets. There is mild to moderate mitral valve regurgitation. Tricuspid Valve The tricuspid valve leaflets are normal. There is trace tricuspid valve regurgitation. Mild pulmonary hypertension, estimated pulmonary arterial systolic pressure is 36 mmHg. Pericardium/Pleural The pericardium appears normal. There is no pericardial effusion. Inferior Vena Cava Normal inferior vena cava with >50% collapse upon inspiration consistent with normal right atrial pressure, 5 mmHg. Aorta The aortic root size at the sinus of Valsalva is normal. Left Ventricular Outflow Tract Name Value Normal LVOT 2D LVOT Diameter 2.1 cm LVOT Doppler LVOT Peak Gradient 5 mmHg LVOT Mean Gradient 2 mmHg LVOT VTI 16 cm LVOT VTI/AV VTI Ratio 0.8
--- NOTE | ~2022-01-18 | XR_ITS ---
EXAMINATION: XR chest 1V portable DATE: 01/18/2022 09:39 INDICATION: Cough TECHNIQUE: frontal view of the chest was obtained. COMPARISON: Chest radiograph dated 11/16/2021 FINDINGS: The lungs are clear with no focal airspace opacities, pulmonary edema, pleural effusion or pneumothor ax. The cardiomediastinal silhouette is normal. Widening of the right acromioclavicular joint likely related to prior distal right clavicle resection. IMPRESSION: 1. No acute cardiopulmonary disease. Reviewed, dictated and finalized at location A.
--- NOTE | 2022-01-18 09:26 | ECG_ITS ---
Measurements Intervals [place] Rate: 106 P: 57 UT: 171 QRS: -24 QRSD: 108 T: 122 QT: 428 QTc: 570 Interpretive Statements SINUS TACHYCARDIA LEFT ATRIAL ENLARGEMENT [-0.15mV P WAVE IN V1/V2] RSR' V1 AND V2 POSSIBLE LEFT VENTRICULAR HYPERTROPHY [VOLTAGE CRITERIA PLUS LAE OR QRS WIDENING] ST DEVIATION AND T-WAVE ABNORMALITY, CONSIDER LATERAL ISCHEMIA [-0.1+ mV T WAVE IN I/aVL/V5/V6] ABNORMAL ECG COMPARED TO ECG 11/16/2021 10:58:49 NO SIGNIFICANT CHANGE OTHER THAN INCREASE IN HEART RATE AND LESS PROMINENT T-WAVE ABNORMALITIES ANTEROLATERAL LEADS. Electronically Signed On 01-18-2022 13:41:30 CDT by Andrea Conner M.D.
--- NOTE | 2022-01-18 09:46 | ED.SOB ---
HPI - SOB/Dyspnea General Chief Complaint: Shortness of Breath/Dyspnea Stated Complaint: Shortness of Breath and Cough Time Seen by Provider: 01/18/22 09:27 History of Present Illness HPI Narrative: Patient is a 56 year old male with a history of systolic heart failure with a recovered EF (45%), type 2 diabetes, HTN who presents for evaluation of shortness of breath and cough x 1 month, worse over the past 4 days. Patient was seen here for the same 1 month ago, but at that time he was complaining of dizziness as well. He was found to have an elevated dimer, but no PE on CTA. Patient declined recommended admission at that time for further workup of his dizziness. He states his dizziness has resolved, however his cough has lingered and worsened. His cough is non-productive, and his shortness of breath is exertional. Additionally reports orthopnea, nighttime awakenings, weight gain, mild abdominal distention, sinus congestion and rhinorrhea. Denies history of similar. No significant leg swelling, chest pain, abdominal pain, fevers, nausea, vomiting. No history of COPD/asthma and denies smoking history. He has been compliant with his HF meds including Metoprolol, Spironolactone, Lasix and Lisinopril. Reports some dietary indiscretions recently. Last Echo: EF 45% Last cardiac catheterization: appx 7 years ago Related Data Allergies Allergy/AdvReac Type Severity Reaction Status Date / Time No Known Allergies Allergy Verified 11/16/21 10:07 Review of Systems Review of Systems: All systems reviewed & are unremarkable except as noted in HPI and below PMFSH Past Medical History Medical History (Updated 01/18/22 @ 14:21 by Shey Corral APRN) Anxiety Arthritis Diet-controlled diabetes mellitus Essential hypertension Hepatitis C Migraine Obstructive sleep apnea Shoulder pain, right Systolic congestive heart failure The patient reports that he had CHF about 6-8 years ago when he lived in [place]. After medication adjustments his cardiac function normalized. Echocardiogram in April 2020 showed an ejection fraction of 40 to 45%. Surgical History Surgical History (Updated 01/18/22 @ 14:19 by Shey Corral APRN) History of cardiac catheterization Approximately 6 years ago and was normal per patient report. Status post right rotator cuff repair Family History Family History Mother Lung cancer Hypertension Father Hypertension Sibling Hypertension Acute myocardial infarction Sibling Hypertension Sibling Hypertension Sibling Hypertension Sibling Hypertension Social History Social History Social History: Patient is from [place] but moved to the area in August 2019 after he and his . They have 3 grown children. He is currently living in [place] with his sister and [id number]. 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 He is a lifelong nonsmoker. He drinks perhaps 1 alcoholic beverage a week. Has previously used marijuana. He designates his sister, Violetta, as his surrogate decision maker and he wishes to be a full code. Smoking status: Never smoker Second hand tobacco smoke exposure: Yes Alcohol intake: current Drinks per week: 1 Alcohol use details: He drinks 1-2 mixed drinks a day. Substance use: never Gender identity (if verbalized by the patient): Male Spiritual care concerns: No Exam Const: General: alert Nutritional Appearance: obese Orientation/consciousness: patient oriented x3 Other: Anxious appearing. Neck: Neck: normal visual inspection Chest: Chest palpation & inspection: normal inspection of the chest Resp: Effort & Inspection: normal respiratory effort, not tachypneic and no use of accessory muscles Auscultation: no rales, no rhonchi, no wheezes and lung sounds not diminished Cardio: Rate: abnormal rate (tach
[2022-01-18 10:06] LABS: Basophils Absolute Auto 0.1 K/mm3 (0.0-0.1); Basophils Percent Auto 0.4 % (0.2-1.2); Eosinophils Absolute Auto 0.1 K/mm3 (0-0.3); Eosinophils Percent Auto 1.2 % (0-4.4); Hematocrit 43.5 % (42.0-52.0); Hemoglobin 14.6 g/dL (14.0-18.0); Immature Granulocyte Absolute 0.03 K/mm3 (0.00-0.031); Immature Granulocyte Percent A 0.3 % (0-0.5); Lymphocytes Absolute Auto 1.52 K/mm3 (0.9-3.2); Lymphocytes Percent Auto 13.4 % (18.3-44.2); Mean Corpuscular HGB Conc 33.6 g/dl (32-36); Mean Corpuscular Hemoglobin 31.5 pg (26-34); Mean Platelet Volume 10.4 fl (7.4-10.4); Monocytes Absolute Auto 2.2 K/mm3 (0.1-0.6); Monocytes Percent Auto 18.9 % (2.6-8.5); Neutrophils Absolute Auto 7.5 K/mm3 (1.3-6.7); Neutrophils Percent Auto 65.8 % (45.5-73.1); Platelet Count Result 245 k/mm3 (150-375); Red Blood Count 4.63 M/mm3 (4.6-6.20); Red Cell Distribution Width 14.6 % (11.5-14.5); White Blood Count 11.4 K/mm3 (4.5-10.0)
[2022-01-18 10:16] LABS: Alanine Aminotransferase 36 U/L (4-50); Albumin Level 4.6 g/dL (3.5-5.1); Alkaline Phosphatase 66 U/L (38-126); Anion Gap 10 mmol/L (8-16); Aspartate Amino Transferase 45 U/L (17-59); Bilirubin,Total 0.6 mg/dL (0.2-1.3); Blood Urea Nitrogen 16 mg/dL (9-20); Carbon Dioxide 25 mmol/L (22-30); Chloride 105 mmol/L (98-107); Estimated CRCL calculation 87 ml/min; Estimated Glomerular Filt Rate > 60; Glucose 107 mg/dL (65-110); Potassium 3.8 mmol/L (3.4-5.0); Sodium 140 mmol/L (137-145)
[2022-01-18 10:59] LABS: NT Pro B Type Natriuretic Pept 7420 pg/mL (5-100)
[2022-01-18] MEDS: ACETAMINOPHEN 500 MG TABLET 1000 MG PO (11:43)
[2022-01-18 12:21] LABS: Troponin I 0.066 ng/mL (0.000-0.034)
[2022-01-18 13:35] LABS: Troponin I 0.075 ng/mL (0.000-0.034)
--- NOTE | 2022-01-18 13:47 | ECG_ITS ---
Measurements Intervals [place] Rate: 87 P: 49 FL: 173 QRS: -26 QRSD: 113 T: 95 QT: 411 QTc: 496 Interpretive Statements SINUS RHYTHM RIGHT ATRIAL ENLARGEMENT [0.3mV P WAVE] LEFT ATRIAL ENLARGEMENT [-0.15mV P WAVE IN V1/V2] BORDERLINE LEFT AXIS DEVIATION [QRS AXIS < -20] POSSIBLE LEFT VENTRICULAR HYPERTROPHY ST AND T-WAVE ABNORMALITY CONSIDER LATERAL ISCHEMIA ABNORMAL ECG COMPARED TO ECG 01/18/2022 09:33:48 HEART RATE HAS DECREASED AND RIGHT ATRIAL ENLARGEMENT SUSPECTED OTHERWISE NO OTHER CHANGES Electronically Signed On 01-18-2022 15:37:42 CDT by Andrea Conner M.D.
--- NOTE | 2022-01-18 14:13 | PM.IMHP ---
H&P: HPI History of Present Illness Date/Time: Patient was placed observation status for expected length of stay less than 23 hours for management, will plan to re-evaluate tomorrow for improvement. 01/18/22 14:13 Chief Complaint: Shortness of breath Narrative: Mr. Meza is a 56-year-old gentleman who presented emergency room with complaints of shortness of breath and has been increasing over the last 4 days. 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 Patient states he did miss his last appointment. Patient states he has been taking all medications that any difficulty. Patient denies any recent significant weight gain. Patient denies any edema. Patient denies any chest pain, lightheadedness, dizziness, syncopal, or near syncopal episodes. Patient states he has had some orthopnea over the last 3 days. Patient states he is diabetic but has not been checking his blood sugars on a routine basis. Upon evaluation in emergency room patient was noted to have a mild elevation in his troponins it was thought best that he be monitored overnight. Patient's saturations have been in the mid to high 90s on room air. Patient does have a known history of a nonischemic cardiomyopathy with a reduced ejection fraction. Patient denies any nausea, vomiting, abdominal pain, constipation, or diarrhea. Patient denies any dysuria, hematuria, frequency, or urgency. Patient denies any history of COPD or asthma. Patient states he does have a history of a nonischemic cardiomyopathy, hypertension, hepatitis-C and diabetes mellitus. Review of Systems Review of Systems: A 12 point review of systems was completed patient all pertinent positive and negative per HPI the remainder are unremarkable. [facility] Past Medical History Medical History (Updated 01/18/22 @ 14:21 by Shey Corral APRN) Anxiety Arthritis Diet-controlled diabetes mellitus Essential hypertension Hepatitis C Migraine Obstructive sleep apnea Shoulder pain, right Systolic congestive heart failure The patient reports that he had CHF about 6-8 years ago when he lived in [place]. After medication adjustments his cardiac function normalized. Echocardiogram in April 2020 showed an ejection fraction of 40 to 45%. Surgical History Surgical History (Updated 01/18/22 @ 14:19 by Shey Corral APRN) History of cardiac catheterization Approximately 6 years ago and was normal per patient report. Status post right rotator cuff repair Family History Family History Mother Lung cancer Hypertension Father Hypertension Sibling Hypertension Acute myocardial infarction Sibling Hypertension Sibling Hypertension Sibling Hypertension Sibling Hypertension Social History Social History Social History: Patient is from [place] but moved to the area in August 2019 after he and his . They have 3 grown children. He is currently living in [place] with his sister and [id number]. 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 He is a lifelong nonsmoker. He drinks perhaps 1 alcoholic beverage a week. Has previously used marijuana. He designates his sister, Violetta, as his surrogate decision maker and he wishes to be a full code. Smoking status: Never smoker Second hand tobacco smoke exposure: Yes Alcohol intake: current Drinks per week: 1 Alcohol use details: He drinks 1-2 mixed drinks a day. Substance use: never Gender identity (if verbalized by the patient): Male Spiritual care concerns: No Meds Home Medications and Allergies Home Medications Medication Instructions Recorded Confirmed Type hydrochlorothiazide 25 mg tablet 25 mg PO QAM #90 tablet 08/09/20 03/15/21 Rx metoprolol succinate 100 mg 100 mg PO QAM #90 tablet 08/09/20 03/15/21 Rx tablet,extended release 24 hr es
[2022-01-18] MEDS: KETOROLAC 15 MG/ML VIAL (*BKC) IV PUSH (17:42)
[2022-01-18] MEDS: FUROSEMIDE INJ 40 MG/4 ML VIAL IV PUSH (17:46)
--- NOTE | 2022-01-18 18:44 | ADMGEN ---
This patient, Hayes Meza, was admitted to IMU Room 209-01 at 1530. Patient/family oriented to hospital policies and general routines including ID bracelet, bed and alarms, visiting hours, pain management, procedures, bathroom and other care routines, personal items, smoking policy, room service/diet, and visiting hours. Information on how to activate the Rapid Response Team has been discussed. Patient/Family are encouraged to report perceived risks to care and to ask questions if they do not understand what they are told or what they should do.
[2022-01-18 19:51] LABS: Troponin I 0.072 ng/mL (0.000-0.034)
[2022-01-18] MEDS: ACETAMINOPHEN 325 MG TABLET 650 MG PO (23:06)
[2022-01-18] MEDS: BENZOCAINE/MENTHOL (*BKC) 18 EA LOZENGE 1 LOZENGE PO (23:12)
[2022-01-19] VITALS (14 sets, daily range): BP systolic 119–144; BP diastolic 86–107; PULSE 74–107; RESP 16–18; TEMP 36.3–36.7; O2SAT 94–100
[2022-01-19 05:14] LABS: Basophils Percent Auto 0.4 % (0.2-1.2); Eosinophils Absolute Auto 0.3 K/mm3 (0-0.3); Eosinophils Percent Auto 4.1 % (0-4.4); Hematocrit 47.7 % (42.0-52.0); Hemoglobin 15.9 g/dL (14.0-18.0); Immature Granulocyte Absolute 0.02 K/mm3 (0.00-0.031); Immature Granulocyte Percent A 0.3 % (0-0.5); Lymphocytes Absolute Auto 1.64 K/mm3 (0.9-3.2); Lymphocytes Percent Auto 21.8 % (18.3-44.2); Mean Corpuscular HGB Conc 33.3 g/dl (32-36); Mean Corpuscular Hemoglobin 31.3 pg (26-34); Mean Corpuscular Volume 93.9 fl (80-100); Mean Platelet Volume 10.6 fl (7.4-10.4); Monocytes Absolute Auto 1.8 K/mm3 (0.1-0.6); Monocytes Percent Auto 24.1 % (2.6-8.5); Neutrophils Absolute Auto 3.7 K/mm3 (1.3-6.7); Neutrophils Percent Auto 49.3 % (45.5-73.1); Platelet Count Result 248 k/mm3 (150-375); Red Blood Count 5.08 M/mm3 (4.6-6.20); Red Cell Distribution Width 14.4 % (11.5-14.5); White Blood Count 7.5 K/mm3 (4.5-10.0)
[2022-01-19 05:34] LABS: Anion Gap 7 mmol/L (8-16); Blood Urea Nitrogen 26 mg/dL (9-20); Calcium 8.8 mg/dL (8.4-10.2); Carbon Dioxide 32 mmol/L (22-30); Chloride 99 mmol/L (98-107); Estimated CRCL calculation 62 ml/min; Estimated Glomerular Filt Rate 57; Glucose 123 mg/dL (65-110); Potassium 3.4 mmol/L (3.4-5.0); Sodium 138 mmol/L (137-145)
--- NOTE | 2022-01-19 09:10 | PM.IMPN ---
Progress Note: A&P Assessment and Plan (1) Shortness of breath: Code(s): R06.02 - Shortness of breath Status: Acute Assessment and Plan: EF 25-30% w/ grade II diastolic dysfunction, mild pulmonary HTN, enlarged LV. BNP elevated. Appears multifactorial w/ heart failure with volume overload and likely has a viral respiratory infection. -Rapid flu, RSV, COVID19 -Gentle diuresis with furosemide 40 mg IV -Fluticasone and phenylephrine spray for nasal congestion. Will stop phenylephrine after 72hrs. (2) Heart failure, chronic, with acute decompensation: Code(s): I50.9 - Heart failure, unspecified Status: Acute Assessment and Plan: BNP elevated. EF 25-30% w/ grade II diastolic dysfunction, mild pulmonary HTN, enlarged LV. compared to 04/2020 echo w/ EF 40-45%. BNP elevated. Furosemide 20 mg IV daily. Continue metoprolol. (3) Elevated troponin: Code(s): R79.89 - Other specified abnormal findings of blood chemistry Status: Acute Assessment and Plan: Echo as noted above. Troponin downtrending. (4) Nonischemic cardiomyopathy: Code(s): I42.8 - Other cardiomyopathies Status: Acute Assessment and Plan: Echo as noted above. On ARB, bb and furosemide. Due to persistent symptoms with multiple hospitalizations recently and new echo w/ EF <35% will add low dose spironolactone as tolerated once diuresis completed. -Spironolactone 12.5 mg daily as tolerated Subjective Date/time seen: Date of Service 01/19/22 0850 Pateint says he developed a cough about four days ago. He has also had rhinorrhea and sore throat, which he attributes to his constant coughing. Denies fever. Has nasal congestion as well. Says he had his influenza vaccine for this flu season. He feels his shortness of breath is related to his cough and congestion. Denies chest pain. Review of Systems Constitutional: Constitutional: Reports fatigue ENT: Reports nasal congestion and Reports nasal discharge Cardiovascular: Cardiovascular: Denies chest pain Respiratory: Respiratory: Reports chest congestion, Reports cough, Reports dyspnea and Reports dyspnea on exertion Exam Narrative: GENERAL: NAD, cooperative HEENT: Normocephalic, atraumatic, anicteric NECK: Supple CV: Normal S1, S2, RRR, No MRG RESP: No crackles, wheezes or rhonchi. Clear to auscultation bilaterally. Abdomen: Soft, non-tender, non-distended, +BS EXTREMITIES: Warm and well perfused, no clubbing. SKIN: warm, dry and intact. NEURO: CN 2-12 grossly intact. Objective Data Vital Signs Vital Signs: Vital Signs - 24 hr 01/18/22 20:00 01/18/22 20:15 01/18/22 22:00 Temperature 97.7 F Pulse Rate 100 87 Respiratory Rate 20 Blood Pressure 122/87 Pulse Oximetry 98 97 01/18/22 23:33 01/19/22 00:00 01/19/22 02:00 Temperature 97.7 F Pulse Rate 91 74 83 Respiratory Rate 20 Blood Pressure 141/100 H Pulse Oximetry 99 01/19/22 04:00 01/19/22 06:00 01/19/22 08:00 Temperature 98.0 F 97.5 F L Pulse Rate 92 93 98 Respiratory Rate 18 16 Blood Pressure 140/103 H 144/95 H Pulse Oximetry 94 96 01/19/22 08:54 01/19/22 09:54 01/19/22 10:00 Temperature Pulse Rate 98 79 Respiratory Rate Blood Pressure Pulse Oximetry 98 01/19/22 12:00 01/19/22 14:00 Temperature 98.1 F Pulse Rate 93 90 Respiratory Rate 16 Blood Pressure 135/107 H Pulse Oximetry 96 Intake/Output Intake/Output: Intake & Output 01/16/22 01/17/22 01/18/22 01/19/22 23:59 23:59 23:59 23:59 Intake Total 240 250 Output Total 1225 Balance 240 -975 Meds/Results Medications: Active Medications Generic Name Dose Route Start Last Admin Trade Name Freq PRN Reason Stop Dose Admin Acetaminophen 650 mg 01/18/22 14:31 01/19/22 09:57 Acetaminophen 325 Mg Tablet PO 650 mg Q4H PRN Administration Mild Pain (1-3) or Fever Benzocaine 1 lozenge 01/18/22 18:59 01/18/22 23:12
[2022-01-19 09:20] LABS: Troponin I 0.057 ng/mL (0.000-0.034)
[2022-01-19] MEDS: ENOXAPARIN 40 MG/0.4 ML SYRINGE SUB-Q (09:54)
[2022-01-19] MEDS: METOPROLOL SUCCINATE EXT REL 100 MG TABCR PO (09:54)
[2022-01-19] MEDS: hydroCHLOROthiazide 25 MG TABLET PO (09:54)
[2022-01-19] MEDS: LOSARTAN POTASSIUM 50 MG TABLET PO (09:54)
[2022-01-19] MEDS: FUROSEMIDE INJ 40 MG/4 ML VIAL IV PUSH (09:55)
[2022-01-19] MEDS: ACETAMINOPHEN 325 MG TABLET 650 MG PO ×2 (09:57→19:56)
[2022-01-19 11:20] LABS: Influenza A QL RT-PCR Negative (Negative); Influenza B QL RT-PCR Negative (Negative); RSV RNA, RT-PCR Negative (Negative); SARS-CoV-2 RNA PCR Negative
[2022-01-19] MEDS: FLUTICASONE PROPIONATE 0.05% NA SPR 16 GM BTL (*BKC) 1 SPRAY NASAL ×2 (17:38→19:50)
[2022-01-19] MEDS: POTASSIUM CHLORIDE 20 MEQ TABLET 40 MEQ PO (17:38)
[2022-01-19] MEDS: PHENYLEPHRINE HCL 0.5% NA SPRAY 15 ML BTL (*BKC) 1 SPRAY EACH NARE (17:39)
[2022-01-19] MEDS: DOXEPIN HCL 10 MG CAPSULE PO (19:50)
[2022-01-19] MEDS: guaiFENesin/CODEINE (*CRX) 200/20 MG 10 ML SYRUP PO (21:27)
[2022-01-20] VITALS (10 sets, daily range): BP systolic 107–128; BP diastolic 84–94; PULSE 65–94; RESP 14–22; TEMP 36.3–36.7; O2SAT 96–98
[2022-01-20 04:56] LABS: Basophils Percent Auto 0.4 % (0.2-1.2); Eosinophils Absolute Auto 0.3 K/mm3 (0-0.3); Eosinophils Percent Auto 3.8 % (0-4.4); Immature Granulocyte Absolute 0.03 K/mm3 (0.00-0.031); Immature Granulocyte Percent A 0.4 % (0-0.5); Lymphocytes Absolute Auto 2.36 K/mm3 (0.9-3.2); Lymphocytes Percent Auto 30.1 % (18.3-44.2); Mean Corpuscular HGB Conc 32.7 g/dl (32-36); Mean Corpuscular Hemoglobin 31.3 pg (26-34); Mean Corpuscular Volume 95.7 fl (80-100); Mean Platelet Volume 10.7 fl (7.4-10.4); Monocytes Percent Auto 25.5 % (2.6-8.5); Neutrophils Absolute Auto 3.1 K/mm3 (1.3-6.7); Neutrophils Percent Auto 39.8 % (45.5-73.1); Platelet Count Result 256 k/mm3 (150-375); Red Blood Count 5.12 M/mm3 (4.6-6.20); Red Cell Distribution Width 14.4 % (11.5-14.5); White Blood Count 7.8 K/mm3 (4.5-10.0)
[2022-01-20 05:13] LABS: Anion Gap 10 mmol/L (8-16); Blood Urea Nitrogen 29 mg/dL (9-20); Calcium 8.6 mg/dL (8.4-10.2); Carbon Dioxide 27 mmol/L (22-30); Chloride 100 mmol/L (98-107); Estimated CRCL calculation 66 ml/min; Estimated Glomerular Filt Rate > 60; Glucose 158 mg/dL (65-110); Magnesium 2.1 mg/dL (1.6-2.3); Phosphorus 3.9 mg/dL (2.5-4.5); Potassium 3.5 mmol/L (3.4-5.0); Sodium 137 mmol/L (137-145)
[2022-01-20] MEDS: PHENYLEPHRINE HCL 0.5% NA SPRAY 15 ML BTL (*BKC) 1 SPRAY EACH NARE (08:42)
[2022-01-20] MEDS: METOPROLOL SUCCINATE EXT REL 100 MG TABCR PO (08:43)
[2022-01-20] MEDS: FUROSEMIDE INJ 40 MG/4 ML VIAL IV PUSH (08:44)
[2022-01-20] MEDS: LOSARTAN POTASSIUM 50 MG TABLET PO (08:44)
[2022-01-20] MEDS: FLUTICASONE PROPIONATE 0.05% NA SPR 16 GM BTL (*BKC) 1 SPRAY NASAL (08:44)
[2022-01-20] MEDS: ENOXAPARIN 40 MG/0.4 ML SYRINGE SUB-Q (08:44)
[2022-01-20] MEDS: POTASSIUM CHLORIDE 20 MEQ TABLET 40 MEQ PO (09:16)
[2022-01-20] MEDS: SPIRONOLACTONE 12.5 MG TABLET PO (12:37)
--- NOTE | 2022-01-20 15:50 | PM.DS ---
DS: Admitting Diagnosis Discharge Date 01/20/2022 Admitting Diagnosis Shortness of breath DS: Discharge Diagnosis Discharge Diagnosis (1) Shortness of breath: Code(s): R06.02 - Shortness of breath Status: Acute Assessment and Plan: EF 25-30% w/ grade II diastolic dysfunction, mild pulmonary HTN, enlarged LV. BNP elevated. Appears multifactorial w/ heart failure with volume overload and likely has a viral respiratory infection. Flu, RSV and COVID 19 were negative. Patient reporting symptom resolution this morning and is clinically improved. -Patient given specific instruction not to use phenylephrine spray for more than 3 days -Discussed with patient that he may benefit from starting spironolactone due to his EF. -Continue fluticasone -Home furosemide dose clarified with patient. Patient reports furosemide 40 mg daily for home dose. (2) Heart failure, chronic, with acute decompensation: Code(s): I50.9 - Heart failure, unspecified Status: Acute Assessment and Plan: BNP elevated. EF 25-30% w/ grade II diastolic dysfunction, mild pulmonary HTN, enlarged LV. compared to 04/2020 echo w/ EF 40-45%. BNP elevated. -Will discharge with home dose of furosemide 40 mg daily (3) Elevated troponin: Code(s): R79.89 - Other specified abnormal findings of blood chemistry Status: Acute Assessment and Plan: Echo as noted above. Troponin downtrending. (4) Nonischemic cardiomyopathy: Code(s): I42.8 - Other cardiomyopathies Status: Acute Assessment and Plan: Echo as noted above. On ARB, bb and furosemide. Due to persistent symptoms with multiple hospitalizations recently and new echo w/ EF <35% will add low dose spironolactone as tolerated once diuresis completed. -On BB and ARB would recommend addition of spironolactone but at this time will defer to PCP to start this medication after resolution of this acute illness DS: Summary Hospital Course Hospital Course: 56M with a past medical history of anxiety, arthritis, diet controlled DM, HCV, migraine, GINA and NICM who presented to the ED with shortness of breath that had been worsening for four days and orthopnea for the last 3 days. In ED, patient was found to have elevated troponin and BNP. EKG showed no t or st changes. Patient had also been having upper respiratory tract symptoms of cough, congestion, rhinorrhea and said is shortness of breath was worsened with the cough which was what brought him to the ED. Patient was given furosemide 40 mg IV daily and was negative 1.5L. Troponin were downtrending. Phenylephrine and fluticasone intranasal spray was started. The patient felt much better after a full day of diuresis and treatment of his URI vs allergic rhinitis. Patient had an echo, which showed and EF 25-30%. Starting spironolactone was discussed but deferred to allow PCP to start the medication at follow up. There was also some confusion about home dose of furosemide. Patient clarified furosemide should be 40 mg daily, so the patient was discharged to home on this dose. Patient discharged to home with specific instructions for the phenylephrine and fluticasone spray. Time Spent with Patient Time attestation: Total time spent providing and/or coordinating discharge services: Exam Narrative: GENERAL: NAD, cooperative HEENT: Normocephalic, atraumatic, anicteric NECK: Supple CV: Normal S1, S2, RRR, No MRG RESP: No crackles, wheezes or rhonchi. Clear to auscultation bilaterally. Abdomen: Soft, non-tender, non-distended, +BS EXTREMITIES: Warm and well perfused, no clubbing. SKIN: warm, dry and intact. NEURO: CN 2-12 grossly intact. DS: Data Data Completed and Pending Labs on day of discharge: Labs from last 24 hours 01/20/22 01/20/22 04:28 04:28 WBC 7.8 RBC 5.12 Hgb 16.0 Hct 49.0 MCV 95.7 MCH 31.3 MCHC 32.7 RDW 14.4 Plt Count 256 MPV 10.7 H Immature Gran % (Aut
== END 2022-01-20 17:00 | disposition home or self-care (01) ==
LOC: ANHED 13:52 → ANHIMU 15:31
PROVIDERS: Nurse Practitioner Adult Health; Physician Assistant; Admitting Provider Internal Medicine; Emergency Provider Emergency Medicine; PCP Internal Medicine; Visit Provider Family Medicine
DX: I11.0 Hypertensive heart disease with heart failure (principal); I50.20 Unspecified systolic (congestive) heart failure; I27.20 Pulmonary hypertension, unspecified; I42.8 Other cardiomyopathies; R79.89 Other specified abnormal findings of blood chemistry; E11.9 Type 2 diabetes mellitus without complications; M19.90 Unspecified osteoarthritis, unspecified site; G47.33 Obstructive sleep apnea (adult) (pediatric); F41.9 Anxiety disorder, unspecified; Z20.822 Contact with and (suspected) exposure to COVID-19; Z86.19 Personal history of other infectious and parasitic diseases
CPT/HCPCS: 36415; 71045; 80048; 80053; 83735; 83880; 84100; 84484; 85025; 87081; 87502; 87880; 93005; 93306; 96372; 96374; 96375; 99285; A9270; C9803; G0378; J1650; J1885; J1940; U0003; U0005

== ENCOUNTER 2022-02-16 15:20 | Emergency (ER) | payer OTHER, SELFPAY ==
--- NOTE | ~2022-02-16 | XR_ITS ---
EXAMINATION: XR foot LT min 3V DATE: 02/16/2022 16:04 INDICATION: Sudden onset dorsal foot pain TECHNIQUE: Dorsoplantar, two oblique and lateral views of the left foot were obtained. COMPARISON: None. FINDINGS: Alignment is normal. No fracture. Mild polyarticular osteoarthritis at the first metatarsophalangeal and a few interphalangeal joints. Small Achilles calcaneal spur. Soft tissues are unremarkable. IMPRESSION: 1. No acute osseous abnormality. Reviewed, dictated and finalized at location B.
[2022-02-16 15:40] VITALS: BP 126/76; PULSE 95; RESP 17; TEMP 36.6; O2SAT 98
[2022-02-16 16:58] LABS: Glucose Point of Care 137 mg/dl (65-105)
--- NOTE | 2022-02-16 17:44 | ED.GENADULT ---
HPI - General Adult General Chief complaint: Extremity Injury, Lower Stated complaint: right foot pain Time Seen by Provider: 02/16/22 15:49 History of Present Illness HPI narrative: Patient is a 56-year-old male who presents ER with left foot pain. Began today. Began on the top part of his left foot. Radiates around to his ankle. No swelling or redness. No known trauma. Patient is diabetic, unsure if his sugars are controlled. Related Data Home Medications Medication Instructions Recorded Confirmed doxepin 10 mg PO HS PRN 01/19/22 01/19/22 Allergies Allergy/AdvReac Type Severity Reaction Status Date / Time nitroglycerin AdvReac Hypotension Verified 01/19/22 08:43 Review of Systems Musculoskeletal: Musculoskeletal: Reports arthralgias and Denies joint swelling Integumentary/Breasts: Skin/Breast: Denies pruritus, Denies erythema and Denies skin ulcer Neurologic: Denies focal weakness and Denies numbness PMFSH Past Medical History Medical History (Updated 02/16/22 @ 17:57 by Juan C Thomas MD) Anxiety Arthritis Diet-controlled diabetes mellitus Essential hypertension Hepatitis C Migraine Obstructive sleep apnea Shoulder pain, right Systolic congestive heart failure The patient reports that he had CHF about 6-8 years ago when he lived in [place]. After medication adjustments his cardiac function normalized. Echocardiogram in April 2020 showed an ejection fraction of 40 to 45%. Surgical History Surgical History (Updated 01/18/22 @ 14:19 by Shey Corral APRN) History of cardiac catheterization Approximately 6 years ago and was normal per patient report. Status post right rotator cuff repair Family History Family History Mother Lung cancer Hypertension Father Hypertension Sibling Hypertension Acute myocardial infarction Sibling Hypertension Sibling Hypertension Sibling Hypertension Sibling Hypertension Social History Social History Social History: Patient is from [place] but moved to the area in August 2019 after he and his . They have 3 grown children. He is currently living in [place] with his sister and [id number]. 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 He is a lifelong nonsmoker. He drinks perhaps 1 alcoholic beverage a week. Has previously used marijuana. He designates his sister, Violetta, as his surrogate decision maker and he wishes to be a full code. Smoking status: Never smoker Second hand tobacco smoke exposure: Yes Alcohol intake: current Drinks per week: 1 Alcohol use details: He drinks 1-2 mixed drinks a day. Substance use: never Gender identity (if verbalized by the patient): Male Spiritual care concerns: No Exam Narrative: GENERAL: Well-appearing, well-nourished, and in no acute distress. HEAD: Normocephalic, atraumatic. HEART: Regular rate and rhythm. Normal peripheral pulses. EXTREMITIES: Normal range of motion. No edema. No reproducible tenderness to left foot. Negative Homans' sign. Normal dorsalis pedis and posterior tibial pulses. Perfusion normal throughout the lower extremity on left side. SKIN: Warm, dry, no rash. NEURO: Alert and oriented x3. PSYCH: Normal mood and affect. Course Course Emergency Course: Patient reports pain is improved while seen in the ER. Will give [place] for some discomfort. May have had a muscle spasm with referred pain but there is no evidence of infection or DVT or arterial compromise. Vital Signs Vital signs: Vital Signs Temperature 97.9 F 02/16/22 15:40 Pulse Rate 95 02/16/22 15:40 Respiratory Rate 17 02/16/22 15:40 Blood Pressure 126/76 02/16/22 15:40 Pulse Oximetry 98 02/16/22 15:40 Temperature 97.9 F 02/16/22 15:40 Pulse Rate 95 02/16/22 15:40 Respiratory Rate 17 02/16/22 15:40 Blood Pressure 1
[2022-02-16] MEDS: HYDROcodone/acetaminophen (*CRX) 5-325 MG TABLET 1 TAB PO (18:06)
[2022-02-16 18:22] VITALS: BP 132/78; PULSE 74; RESP 16; O2SAT 98
== END 2022-02-16 18:23 | disposition home or self-care (01) ==
PROVIDERS: Emergency Provider Emergency Medicine; PCP Internal Medicine
DX: M79.672 Pain in left foot (principal); E11.9 Type 2 diabetes mellitus without complications; I10 Essential (primary) hypertension; G47.33 Obstructive sleep apnea (adult) (pediatric); I50.20 Unspecified systolic (congestive) heart failure; Z86.19 Personal history of other infectious and parasitic diseases
CPT/HCPCS: 73630; 82948; 99283; A9270

== ENCOUNTER 2022-05-08 10:28 | Observation (INO) | payer SELFPAY ==
[2022-05-08] VITALS (13 sets, daily range): BP systolic 104–131; BP diastolic 74–109; PULSE 65–100; RESP 15–20; TEMP 35.9–36.7; O2SAT 90–99
--- NOTE | ~2022-05-08 | XR_ITS ---
XR chest 2V DATE: 05/08/2022 11:00 INDICATION: Shortness of breath for 7 days. Elevated troponin yesterday. TECHNIQUE: PA and lateral views COMPARISON: 01/18/2022 portable upright AP chest FINDINGS: Cardiomegaly. There is mild aortic tortuosity. No hilar or mediastinal enlargement. No pulmonary infiltrate or consolidation, pleural effusion or pulmonary vascular congestion or pneumo thorax. Degenerative spurring of the thoracic spine. IMPRESSION: Cardiomegaly No active pulmonary disease Reviewed, dictated and finalized at location B.
--- NOTE | ~2022-05-08 | CT_ITS ---
EXAMINATION: CTA chest PE protocol DATE: 05/08/2022 11:58 INDICATION: Shortness of breath. TECHNIQUE: Computed tomography angiography (CTA) of the chest was performed with 100 mL Omnipaque-350 intravenous contrast timed to evaluate the pulmonary arteries. Coronal maximum intensity projection 3D-reconstructions were created by the technologist. Automated exposure control and iterative reconst ruction technique were employed. The dose-length product was 672.32 mGy-cm. COMPARISON: Chest CT 11/16/2021 FINDINGS: The lungs demonstrate smooth septal thickening, consistent mild pulmonary edema. No pleural effusion. Cardiomegaly is noted. No pericardial effusion. There are coronary artery calcifications. There is no pulmonary embolus. There is a small volume of perihepatic ascites. There is mild chronic anterior wedging of multiple thoracic vertebral bodies. There is moderate thoracic spondylosis. IMPRESSION: 1. No pulmonary embolus. 2. Mild pulmonary edema. 3. Small volume of perihepatic ascites. 4. Cardiomegaly. Reviewed, dictated and finalized at location A.
--- NOTE | 2022-05-08 10:36 | ECG_ITS ---
Measurements Intervals [place] Rate: 85 P: 57 WV: 204 QRS: -21 QRSD: 114 T: 122 QT: 417 QTc: 496 Interpretive Statements SINUS RHYTHM POSSIBLE LEFT ATRIAL ENLARGEMENT INTRAVENTRICULAR CONDUCTION DELAY BORDERLINE R WAVE PROGRESSION, ANTERIOR LEADS BORDERLINE ST-T WAVE ABNORMALITY- LAT/HIGH LAT LEADS BASELINE ARTIFACT- I, II, AVR, AVL, AVF BORDERLINE ECG Electronically Signed On 05-08-2022 10:57:32 CDT by Khadar Mckeon D.O.
[2022-05-08] MEDS: ASPIRIN 81 MG CHEWABLE TABLET 324 MG PO (10:42)
[2022-05-08 10:49] LABS: Basophils Absolute Auto 0.1 K/mm3 (0.0-0.1); Basophils Percent Auto 0.4 % (0.2-1.2); Eosinophils Absolute Auto 0.1 K/mm3 (0-0.3); Hemoglobin 14.5 g/dL (14.0-18.0); Immature Granulocyte Absolute 0.05 K/mm3 (0.00-0.031); Immature Granulocyte Percent A 0.4 % (0-0.5); Lymphocytes Absolute Auto 1.68 K/mm3 (0.9-3.2); Lymphocytes Percent Auto 14.4 % (18.3-44.2); Mean Corpuscular HGB Conc 31.5 g/dl (32-36); Mean Corpuscular Hemoglobin 30.8 pg (26-34); Mean Corpuscular Volume 97.7 fl (80-100); Mean Platelet Volume 9.9 fl (7.4-10.4); Monocytes Absolute Auto 1.4 K/mm3 (0.1-0.6); Monocytes Percent Auto 11.8 % (2.6-8.5); Neutrophils Absolute Auto 8.4 K/mm3 (1.3-6.7); Platelet Count Result 320 k/mm3 (150-375); Red Blood Count 4.71 M/mm3 (4.6-6.20); Red Cell Distribution Width 13.6 % (11.5-14.5); White Blood Count 11.7 K/mm3 (4.5-10.0)
[2022-05-08 10:58] LABS: Alanine Aminotransferase 33 U/L (6-50); Albumin Level 4.3 g/dL (3.5-5.1); Alkaline Phosphatase 67 U/L (38-126); Anion Gap 8 mmol/L (8-16); Aspartate Amino Transferase 38 U/L (17-59); Bilirubin,Total 0.9 mg/dL (0.2-1.3); Blood Urea Nitrogen 27 mg/dL (9-20); Calcium 8.9 mg/dL (8.4-10.2); Carbon Dioxide 27 mmol/L (22-30); Chloride 101 mmol/L (98-107); Estimated CRCL calculation 66 ml/min; Estimated Glomerular Filt Rate > 60; Glucose 142 mg/dL (65-110); Lipase 204 U/L (23-300); Potassium 3.6 mmol/L (3.4-5.0); Sodium 136 mmol/L (137-145)
[2022-05-08 11:00] LABS: INR 1.4; Prothrombin Time 16.2 Seconds (11.1-14.7)
[2022-05-08 11:01] LABS: Partial Thromboplastin Time 27.1 SECONDS (22.3-36.8)
[2022-05-08 11:12] LABS: Troponin I 0.117 ng/mL (0.000-0.034)
--- NOTE | 2022-05-08 11:31 | ED.GENADULT ---
HPI - General Adult General Chief complaint: Shortness of Breath/Dyspnea Stated complaint: SOB Time Seen by Provider: 05/08/22 11:13 History of Present Illness HPI narrative: 56-year-old male presenting to the emergency department for evaluation of worsening shortness of breath over the last 2 to 3 days. Patient states normally he is able to exert himself without shortness of breath but this has changed over the last few days. Patient denies any associated chest pain. Patient denies any prior history of heart attack. Patient is not a smoker and has no prior history of [place]. Patient did have an angiogram about 2 years ago which was negative. Patient was evaluated at [facility] yesterday and was told that he had elevated troponins. Patient was pain-free at that time as well. Patient signed out AMA from their institution. Patient states that his shortness of breath continued to worsen so he presented to our ED for evaluation. Related Data Home Medications Medication Instructions Recorded Confirmed albuterol 90 mcg/actuation aerosol See Rx Instructions .Route .COMPLEX 05/08/22 05/08/22 inhaler alprazolam 2 mg tablet 2 mg PO DAILY 05/08/22 05/08/22 Allergies Allergy/AdvReac Type Severity Reaction Status Date / Time nitroglycerin AdvReac Hypotension Verified 05/08/22 10:37 Review of Systems Review of Systems: CONSTITUTIONAL: Denies fever, chills, or sweats. EYES: Denies visual changes, redness, or discharge. ENT: Denies rhinorrhea, congestion, sore throat, or otalgia. CARDIOVASCULAR: See HPI RESPIRATORY: Worsening shortness of breath GASTROINTESTINAL: Denies abdominal pain, nausea, vomiting, or diarrhea. GENITOURINARY: Denies dysuria or hematuria. SKIN: Denies rash or itching. MUSCULOSKELETAL: Denies back pain, joint pain, or myalgia. NEUROLOGIC: Denies headache, numbness, or weakness. [facility] Past Medical History Medical History Anxiety Arthritis Diet-controlled diabetes mellitus Essential hypertension Hepatitis C Migraine Obstructive sleep apnea Shoulder pain, right Systolic congestive heart failure The patient reports that he had CHF about 6-8 years ago when he lived in [place]. After medication adjustments his cardiac function normalized. Echocardiogram in April 2020 showed an ejection fraction of 40 to 45%. Surgical History Surgical History History of cardiac catheterization Approximately 6 years ago and was normal per patient report. Status post right rotator cuff repair Family History Family History Mother Lung cancer Hypertension Father Hypertension Sibling Hypertension Acute myocardial infarction Sibling Hypertension Sibling Hypertension Sibling Hypertension Sibling Hypertension Social History Social History Social History: Patient is from [place] but moved to the area in August 2019 after he and his . They have 3 grown children. patient just [facility] in [place]. He said there was 24 units he is the only male. He does elect his sister Violetta to be his surrogate and he wishes to be a full code at this time. 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
[2022-05-08 11:49] LABS: NT Pro B Type Natriuretic Pept 7340 pg/mL (5-100)
[2022-05-08 11:52] LABS: Alveolar/Arterial O2 Gradient 129.7 mmHg; Base Excess ABG 0.4 mEq/l (+/-2.0); Fractional Inspired Oxygen 36 %; HCO3 ABG 21.9 mEq/l (22.0-26.0); Oxygen Content ABG 20.4 %vol (16.0-22.0); Oxygen Saturation ABG 97.9 % (95.0-100.0); Oxyhemoglobin 95.9 % THb (90.0-100.0); PCO2 ABG 27.6 mmHg (35.0-45.0); PO2 FiO2 Ratio Arterial Blood 2.64 %; Total Hemoglobin 15.1 g/dL (12.0-18.0)
[2022-05-08 11:53] LABS: Site Drawn RIGHT RADIAL
[2022-05-08 11:55] LABS: Device NASAL CANNULA; Modified Allen's Test Pass; pH ABG 7.517 (7.350-7.450)
[2022-05-08] MEDS: FUROSEMIDE INJ 40 MG/4 ML VIAL IV PUSH ×2 (12:01→20:35)
[2022-05-08 12:36] LABS: SARS-CoV-2 RNA PCR Negative
--- NOTE | 2022-05-08 13:43 | ECG_ITS ---
Measurements Intervals [place] Rate: 69 P: 59 SD: 200 QRS: -15 QRSD: 117 T: 146 QT: 472 QTc: 508 Interpretive Statements SINUS RHYTHM POSSIBLE LEFT ATRIAL ENLARGEMENT BORDERLINE AV CONDUCTION DELAY INTRAVENTRICULAR CONDUCTION DELAY DELAYED PRECORDIAL R/S TRANSITION ST-T WAVE ABNORMALITY IN ANTEROLAT/HIGH LAT LEADS- CONSIDER ISCHEMIA BASELINE ARTIFACT- II, III ABNORMAL ECG Electronically Signed On 05-08-2022 18:53:49 CDT by Khadar Mckeon D.O.
--- NOTE | 2022-05-08 13:46 | PM.IMHP ---
H&P: HPI History of Present Illness Date/Time: 05/08/22 13:46 Chief Complaint: Shortness of breath Narrative: Patient is a 56-year-old male with past medical history of anxiety, systolic and diastolic heart failure, GINA, hep C, hypertension who presented to the ED with complaints of shortness of breath. Patient stated that he has been short of breath over the last couple of days. He stated that he is normally able to exert himself without shortness of breath but this has changed. he stated that he would be sleeping and lying down in bed when he would wake up and sudden and panic attack that would last roughly 5 minutes. He stated that he cannot lay down flat. He also stated that he can not take a deep breath in his legs have been a little bit more swollen than normal. He denies wearing oxygen at home. He denies any falls however he did state that he was been a little dizzy and lightheaded. He is very tired and weak. He also stated that he is having no difficulties with urination. He has denying any chest pain, nausea, vomiting, diarrhea, constipation, visual changes, syncope, visual changes, hearing changes, abdominal pain. Patient does claim to be taking his medications the appropriate way. He does appear to be fluid overloaded with an elevated BNP and CTA shows pulmonary edema. He is currently using oxygen at 2 L and his ABG shows respiratory alkalosis. He does see Dr. Conner for Cardiology. Patient does have an EF of 25-30%. Patient is being admitted to the hospital under observation Review of Systems Review of Systems: All systems reviewed & are unremarkable except as noted in HPI and below PMFSH Past Medical History Medical History Anxiety Arthritis Diet-controlled diabetes mellitus Essential hypertension Hepatitis C Migraine Obstructive sleep apnea Shoulder pain, right Systolic congestive heart failure The patient reports that he had CHF about 6-8 years ago when he lived in [place]. After medication adjustments his cardiac function normalized. Echocardiogram in April 2020 showed an ejection fraction of 40 to 45%. Surgical History Surgical History History of cardiac catheterization Approximately 6 years ago and was normal per patient report. Status post right rotator cuff repair Family History Family History Mother Lung cancer Hypertension Father Hypertension Sibling Hypertension Acute myocardial infarction Sibling Hypertension Sibling Hypertension Sibling Hypertension Sibling Hypertension Social History Social History Social History: Patient is from [place] but moved to the area in August 2019 after he and his . They have 3 grown children. patient just [facility] in [place]. He said there was 24 units he is the only male. He does elect his sister Violetta to be his surrogate and he wishes to be a full code at this time. 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
--- NOTE | 2022-05-08 15:58 | ADMGEN ---
This patient, Hayes Meza, was admitted to IMU Room 201-01 on 05/08/22 at 1539. Patient/family oriented to hospital policies and general routines including ID bracelet, bed and alarms, visiting hours, pain management, procedures, bathroom and other care routines, personal items, smoking policy, room service/diet, and visiting hours. Information on how to activate the Rapid Response Team has been discussed. Patient/Family are encouraged to report perceived risks to care and to ask questions if they do not understand what they are told or what they should do.
[2022-05-08 16:58] LABS: Troponin I 0.107 ng/mL (0.000-0.034)
[2022-05-08] MEDS: ALBUTEROL SULFATE (*SP) AEROSOL 1 PUFF 2 PUFF INHALATION (20:19)
[2022-05-08 20:24] LABS: Glucose Point of Care 125 mg/dl (65-105)
[2022-05-08] MEDS: HEPARIN SODIUM 5,000 UNITS/ML VIAL 5000 UNITS SUB-Q (20:35)
[2022-05-08] MEDS: FLUTICASONE PROPIONATE 0.05% NA SPR 16 GM BTL (*BKC) 1 SPRAY NASAL (20:35)
[2022-05-09] VITALS (13 sets, daily range): BP systolic 99–146; BP diastolic 61–90; PULSE 60–89; RESP 18–20; TEMP 36.3–36.7; O2SAT 97–100
[2022-05-09] MEDS: ALBUTEROL SULFATE (*SP) AEROSOL 1 PUFF 2 PUFF INHALATION ×4 (03:37→19:51)
[2022-05-09 05:01] LABS: Basophils Absolute Auto 0.1 K/mm3 (0.0-0.1); Basophils Percent Auto 0.5 % (0.2-1.2); Eosinophils Absolute Auto 0.3 K/mm3 (0-0.3); Eosinophils Percent Auto 1.9 % (0-4.4); Hematocrit 44.9 % (42.0-52.0); Hemoglobin 14.4 g/dL (14.0-18.0); Immature Granulocyte Absolute 0.07 K/mm3 (0.00-0.031); Immature Granulocyte Percent A 0.5 % (0-0.5); Lymphocytes Absolute Auto 2.31 K/mm3 (0.9-3.2); Lymphocytes Percent Auto 17.5 % (18.3-44.2); Mean Corpuscular HGB Conc 32.1 g/dl (32-36); Mean Corpuscular Hemoglobin 30.6 pg (26-34); Mean Corpuscular Volume 95.5 fl (80-100); Mean Platelet Volume 10.5 fl (7.4-10.4); Monocytes Absolute Auto 1.6 K/mm3 (0.1-0.6); Monocytes Percent Auto 11.9 % (2.6-8.5); Neutrophils Absolute Auto 8.9 K/mm3 (1.3-6.7); Neutrophils Percent Auto 67.7 % (45.5-73.1); Platelet Count Result 317 k/mm3 (150-375); Red Cell Distribution Width 13.2 % (11.5-14.5); White Blood Count 13.2 K/mm3 (4.5-10.0)
[2022-05-09 05:14] LABS: Alanine Aminotransferase 32 U/L (6-50); Albumin Level 3.9 g/dL (3.5-5.1); Alkaline Phosphatase 66 U/L (38-126); Anion Gap 10 mmol/L (8-16); Aspartate Amino Transferase 37 U/L (17-59); Blood Urea Nitrogen 32 mg/dL (9-20); Calcium 8.5 mg/dL (8.4-10.2); Carbon Dioxide 30 mmol/L (22-30); Chloride 97 mmol/L (98-107); Estimated CRCL calculation 53 ml/min; Estimated Glomerular Filt Rate 48; Glucose 195 mg/dL (65-110); Magnesium 1.9 mg/dL (1.6-2.3); Potassium 2.9 mmol/L (3.4-5.0); Sodium 137 mmol/L (137-145)
[2022-05-09 05:17] LABS: Hemoglobin A1C 6.5 % (<5.7)
[2022-05-09 08:30] LABS: Glucose Point of Care 172 mg/dl (65-105)
--- NOTE | 2022-05-09 08:32 | PM.CNCAR ---
Assessment and Plan Assessment and plan (1) Heart failure, chronic, with acute decompensation: Code(s): I50.9 - Heart failure, unspecified Status: Acute Assessment and Plan: 56-year-old male with CHF with reduced ejection fraction ( LVEF 25-30% from 01/18/2022 echo) secondary to ?nonischemic cardiomyopathy (patient reported cardiac catheterization with no obstructive CAD performed about 2 years ago in [place]); hypertension, hepatitis-C, anxiety. Patient admitted to the hospital with acute on chronic CHF with reduced ejection fraction. -IV furosemide has been changed to p.o. furosemide. Patient will need maintenance diuresis at discharge. Supplementation as needed. -continue metoprolol succinate. Change losartan to sacubitril/valsartan. If patient is unable to afford it, then may switch back to losartan. Add spironolactone 25 mg p.o. daily. Consider adding SGLT2 inhibitor as an outpatient. -patient advised to follow up as an outpatient. Repeat echocardiogram as an outpatient. If his LVEF remains less than 35%, then he will need to be considered for ICD placement for primary prevention of sudden cardiac . (2) Elevated troponin: Code(s): R79.89 - Other specified abnormal findings of blood chemistry Status: Acute Assessment and Plan: Minimal troponin elevation, essentially flat in the setting of CHF exacerbation. Previous cardiac catheterization as per patient was unremarkable. 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 Conner after hospital discharge. History of Present Illness History of Present Illness Consult date/time: 05/09/22 08:32 Requesting physician: Chris Fragoso MD Reason For Visit: CHF exacerbation/dyspnea/elevated troponin Narrative: DATE OF CONSULT:05/09/2022 REASON FOR CONSULT: CHF exacerbation, dyspnea, elevated troponin REQUESTING PHYSICIAN: MD [place] CHIEF COMPLAINT: worsening shortness of breath HPI: 56-year-old male with CHF with reduced ejection fraction ( LVEF 25-30% from 01/18/2022 echo) secondary to ?nonischemic cardiomyopathy; hypertension, hepatitis-C, anxiety. Patient follows up with Dr. Conner for cardiovascular care, however, he has not had regular follow-up lately due to what patient describes as financial reasons. He states that he had cardiac catheterization in [place] about 2 years ago, and did not have any obstructive CAD. At baseline, patient states that he does not have any significant limitations until about 3 days ago when he started having shortness of breath with limited activity. He denied any associated symptoms of chest pain, palpitation, dizziness, PND, orthopnea or lower extremity swelling. Patient presented to [facility] on 05/08/2022 with worsening shortness of breath. EKG on my personal evaluation showed sinus rhythm, left atrial enlargement, nonspecific intraventricular conduction delay, ST-T abnormality suggestive of possible ischemia. Troponins mildly elevated and essentially flat. NT proBNP elevated at 7340. Chest x-ray showed cardiomegaly. CT chest reported No pulmonary embolus, mild pulmonary edema, small volume of perihepatic ascites, cardiomegaly. COVID-19 negative. Recent echocardiogram from 01/18/2022 showed mild LVH, LVEF 25-30%, grade 2 diastolic dysfunction, moderate biatrial enlargement, [id number] MR, RVSP 36 mmHg. 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 Denies tobacco, occasional alcohol, no illicit drugs. Lives alone. Review of Systems Review of Systems: General: Negative for fever, chills, fatigue Psychological: Positive for anxiety Ophthalmic: negative for loss of vision ENT: Negative for epistaxis, headaches Allergy and immunology: Negative for hives, nasal congestion Hematologic and lymphatic: Negative for overt bleeding problems Endocrine: Negative for hot flashes, palpitations Respiratory: Negative for cough, hemoptysis Cardiovascular: Negative for chest pain, positive for sh
--- NOTE | 2022-05-09 08:39 | P.PNIM_ITS ---
Progress Note: A&P Assessment and Plan (1) Acute on chronic systolic and diastolic heart failure, NYHA class 2: Code(s): I50.43 - Acute on chronic combined systolic (congestive) and diastolic (congestive) heart failure Status: Acute Assessment and Plan: * Chest x-ray shows no acute cardiopulmonary findings * CTA shows no PE pulmonary edema and perihepatic ascites * BNP elevated at 7340 * Troponin elevated at 0.117, 0.120, 0.107, esentially flat, probably elevated due to CHF exacerbation * Blood gas shows respiratory alkalosis * Echo from December of 2021 shows an EF of 25-30% with a grade 2 diastolic dysfunction, mild pulmonary hypertension, enlarged LV. * Trend urine output * Daily weights * Continue IV Lasix 40 mg b.i.d., Change to PO lasix 40mg PO BID * Continue aspirin, metoprolol, losartan * Cardiology consult thank you for your help * Seems stable can probably be moved out of IMU (2) Elevated troponin: Code(s): R79.89 - Other specified abnormal findings of blood chemistry Status: Acute Assessment and Plan: * Troponin currently at 0.117, 0.120, 0.107 * Flat, related to CHF exacerbation * Troponins appear higher than normal * Probably related to fluid overload * Cardiology consulted * EKG really only have T Wave inversion in leads V4-6 is the only notable change since December (3) Obstructive sleep apnea: Code(s): G47.33 - Obstructive sleep apnea (adult) (pediatric) Status: Acute Assessment and Plan: * Continue home CPAP at home settings (4) Diet-controlled diabetes mellitus: Code(s): E11.9 - Type 2 diabetes mellitus without complications Status: Acute Assessment and Plan: * Current glucose is 195 * Accu-Cheks AC and HS * A1c 6.5 * Trend glucose * Adjust therapy as indicated (5) Nonischemic cardiomyopathy: Code(s): I42.8 - Other cardiomyopathies Status: Acute Assessment and Plan: * Seems to be chronic * Cardiology on the case * Lasix on board * See above Time Spent With Patient Time with patient: Greater than 35 minutes Subjective Date/time seen: 05/09/22 08:39 Interval history: 05/08/22 0830 Patient reports feeling better today. He is able to take a deep breath. Still on 4 L nasal cannula however saturations have been 97%. No notable ectopy. Patient does report sleep well. Will transition patient to oral Lasix this time. Troponins appear to be flat probably related to a CHF exacerbation. 05/08/22? 13:46 Patient is a 56-year-old male with past medical history of anxiety, systolic and diastolic heart failure, GINA, hep C, hypertension who presented to the ED with complaints of shortness of breath.? Patient stated that he has been short of breath over the last couple of days.? He stated that he is normally able to exert himself without shortness of breath but this has changed. he stated that he would be sleeping and lying down in bed when he would wake up and sudden and panic attack that would last roughly 5 minutes.? He stated that he cannot lay down flat.? He also stated that he can not take a deep breath in his legs have b een a little bit more swollen than normal.? He denies wearing oxygen at home.? He denies any falls however he did state that he was been a little dizzy and lightheaded.? He is very tired and weak.? He also stated that he is having no difficulties with urination.? He has denying any chest pain, nausea, vomiting, power
--- NOTE | 2022-05-09 08:39 | PM.IMPN ---
Progress Note: A&P Assessment and Plan (1) Acute on chronic systolic and diastolic heart failure, NYHA class 2: Code(s): I50.43 - Acute on chronic combined systolic (congestive) and diastolic (congestive) heart failure Status: Acute Assessment and Plan: Chest x-ray shows no acute cardiopulmonary findings CTA shows no PE pulmonary edema and perihepatic ascites BNP elevated at 7340 Troponin elevated at 0.117, 0.120, 0.107, esentially flat, probably elevated due to CHF exacerbation Blood gas shows respiratory alkalosis Echo from December of 2021 shows an EF of 25-30% with a grade 2 diastolic dysfunction, mild pulmonary hypertension, enlarged LV. Trend urine output Daily weights Continue IV Lasix 40 mg b.i.d., Change to PO lasix 40mg PO BID Continue aspirin, metoprolol, losartan Cardiology consult thank you for your help Seems stable can probably be moved out of IMU (2) Elevated troponin: Code(s): R79.89 - Other specified abnormal findings of blood chemistry Status: Acute Assessment and Plan: Troponin currently at 0.117, 0.120, 0.107 Flat, related to CHF exacerbation Troponins appear higher than normal Probably related to fluid overload Cardiology consulted EKG really only have T Wave inversion in leads V4-6 is the only notable change since December (3) Obstructive sleep apnea: Code(s): G47.33 - Obstructive sleep apnea (adult) (pediatric) Status: Acute Assessment and Plan: Continue home CPAP at home settings (4) Diet-controlled diabetes mellitus: Code(s): E11.9 - Type 2 diabetes mellitus without complications Status: Acute Assessment and Plan: Current glucose is 195 Accu-Cheks AC and HS A1c 6.5 Trend glucose Adjust therapy as indicated (5) Nonischemic cardiomyopathy: Code(s): I42.8 - Other cardiomyopathies Status: Acute Assessment and Plan: Seems to be chronic Cardiology on the case Lasix on board See above Time Spent With Patient Time with patient: Greater than 35 minutes Subjective Date/time seen: 05/09/22 08:39 Interval history: 05/08/22 0830 Patient reports feeling better today. He is able to take a deep breath. Still on 4 L nasal cannula however saturations have been 97%. No notable ectopy. Patient does report sleep well. Will transition patient to oral Lasix this time. Troponins appear to be flat probably related to a CHF exacerbation. 05/08/22? 13:46 Patient is a 56-year-old male with past medical history of anxiety, systolic and diastolic heart failure, GINA, hep C, hypertension who presented to the ED with complaints of shortness of breath.? Patient stated that he has been short of breath over the last couple of days.? He stated that he is normally able to exert himself without shortness of breath but this has changed. he stated that he would be sleeping and lying down in bed when he would wake up and sudden and panic attack that would last roughly 5 minutes.? He stated that he cannot lay down flat.? He also stated that he can not take a deep breath in his legs have been a little bit more swollen than normal.? He denies wearing oxygen at home.? He denies any falls however he did state that he was been a little dizzy and lightheaded.? He is very tired and weak.? He also stated that he is having no difficulties with urination.? He has denying any chest pain, nausea, vomiting, diarrhea, constipation, visual changes, syncope, visual changes, hearing changes, abdominal pain. ? Patient does claim to be taking his medications the appropriate way.? He does appear to be fluid overloaded with an elevated BNP and CTA shows pulmonary edema.? He is currently using oxygen at 2 L and his ABG shows respiratory alkalosis.? He does see Dr. Conner for Cardiology.? Patient does have an EF of 25-30%. Review of Systems Review of Systems: All systems reviewed & are
[2022-05-09] MEDS: POTASSIUM CHLORIDE 20 MEQ TABLET 40 MEQ PO (09:44)
[2022-05-09] MEDS: FLUTICASONE PROPIONATE 0.05% NA SPR 16 GM BTL (*BKC) 1 SPRAY NASAL ×2 (09:45→20:21)
[2022-05-09] MEDS: POTASSIUM CHLORIDE 20 MEQ TABLET.ER PO (09:45)
[2022-05-09] MEDS: HEPARIN SODIUM 5,000 UNITS/ML VIAL 5000 UNITS SUB-Q ×2 (09:45→20:20)
[2022-05-09] MEDS: METOPROLOL SUCCINATE EXT REL 100 MG TABCR PO (09:46)
[2022-05-09] MEDS: LOSARTAN POTASSIUM 50 MG TABLET PO (09:47)
[2022-05-09] MEDS: ALPRAZolam (*CRX) 0.5 MG TABLET 2 MG PO (09:48)
[2022-05-09] MEDS: FUROSEMIDE 40 MG TABLET PO ×2 (10:02→17:01)
[2022-05-09 11:51] LABS: Glucose Point of Care 155 mg/dl (65-105)
--- NOTE | 2022-05-09 13:47 | PCNSR ---
On 05/09/22, the student,Nereyda Valencia, provided care and completed [facility] documentation on this patient. I have reviewed the student's documentation and agree with the findings.
[2022-05-09 17:18] LABS: Glucose Point of Care 173 mg/dl (65-105)
[2022-05-09 21:23] LABS: Glucose Point of Care 170 mg/dl (65-105)
[2022-05-10] VITALS (7 sets, daily range): BP systolic 108–129; BP diastolic 71–95; PULSE 68–81; RESP 20; TEMP 35.9–36.5; O2SAT 98
[2022-05-10] MEDS: ALBUTEROL SULFATE (*SP) AEROSOL 1 PUFF 2 PUFF INHALATION ×4 (00:26→12:28)
[2022-05-10] MEDS: HYDROcodone/acetaminophen (*CRX) 5-325 MG TABLET 1 TAB PO (01:30)
[2022-05-10 05:12] LABS: Basophils Absolute Auto 0.1 K/mm3 (0.0-0.1); Basophils Percent Auto 0.6 % (0.2-1.2); Eosinophils Absolute Auto 0.3 K/mm3 (0-0.3); Eosinophils Percent Auto 2.7 % (0-4.4); Hematocrit 46.4 % (42.0-52.0); Hemoglobin 14.7 g/dL (14.0-18.0); Immature Granulocyte Absolute 0.03 K/mm3 (0.00-0.031); Immature Granulocyte Percent A 0.3 % (0-0.5); Lymphocytes Percent Auto 23.2 % (18.3-44.2); Mean Corpuscular HGB Conc 31.7 g/dl (32-36); Mean Corpuscular Hemoglobin 30.5 pg (26-34); Mean Corpuscular Volume 96.3 fl (80-100); Mean Platelet Volume 10.4 fl (7.4-10.4); Monocytes Absolute Auto 1.9 K/mm3 (0.1-0.6); Neutrophils Absolute Auto 6.7 K/mm3 (1.3-6.7); Neutrophils Percent Auto 57.2 % (45.5-73.1); Platelet Count Result 324 k/mm3 (150-375); Red Blood Count 4.82 M/mm3 (4.6-6.20); Red Cell Distribution Width 13.6 % (11.5-14.5); White Blood Count 11.7 K/mm3 (4.5-10.0)
[2022-05-10 05:32] LABS: Alanine Aminotransferase 31 U/L (6-50); Albumin Level 3.9 g/dL (3.5-5.1); Alkaline Phosphatase 64 U/L (38-126); Anion Gap 8 mmol/L (8-16); Aspartate Amino Transferase 38 U/L (17-59); Bilirubin,Total 0.9 mg/dL (0.2-1.3); Blood Urea Nitrogen 28 mg/dL (9-20); Calcium 8.5 mg/dL (8.4-10.2); Carbon Dioxide 29 mmol/L (22-30); Chloride 101 mmol/L (98-107); Estimated CRCL calculation 72 ml/min; Estimated Glomerular Filt Rate > 60; Glucose 104 mg/dL (65-110); Magnesium 2.1 mg/dL (1.6-2.3); Potassium 3.8 mmol/L (3.4-5.0); Sodium 138 mmol/L (137-145)
[2022-05-10 08:35] LABS: Glucose Point of Care 152 mg/dl (65-105)
[2022-05-10] MEDS: SACUBITRIL/VALSARTAN 49-51 MG TABLET 1 TABLET PO (09:28)
[2022-05-10] MEDS: POTASSIUM CHLORIDE 20 MEQ TABLET.ER PO (09:28)
[2022-05-10] MEDS: ALPRAZolam (*CRX) 0.5 MG TABLET 2 MG PO (09:28)
[2022-05-10] MEDS: FUROSEMIDE 40 MG TABLET PO (09:28)
[2022-05-10] MEDS: METOPROLOL SUCCINATE EXT REL 100 MG TABCR PO (09:28)
[2022-05-10] MEDS: HEPARIN SODIUM 5,000 UNITS/ML VIAL 5000 UNITS SUB-Q (09:29)
[2022-05-10] MEDS: SPIRONOLACTONE 25 MG TABLET PO (09:29)
[2022-05-10] MEDS: FLUTICASONE PROPIONATE 0.05% NA SPR 16 GM BTL (*BKC) 1 SPRAY NASAL (09:29)
--- NOTE | 2022-05-10 10:40 | PM.PNCARD ---
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 Enters the hospital with a mild decompensation of congestive heart failure. He is euvolemic. His medical regimen has been adjusted with the transitioning from losartan to Entresto as well as adding spironolactone to his regimen. He appears to be stable enough for discharge today. I will see that he has a short interval follow-up in my office with Dr. Ubaldo Trujillo MD [facility] Subjective Date/time seen: Date of service: 05/10/22 10:40 Interval history: Follow-up visit in this 56-year-old man with: Documented history of nonischemic dilated cardiomyopathy admitted to the hospital with shortness of breath and mild CHF exacerbation. Patient is now asymptomatic after being diuresed for a couple of days. He has been transitioned from losartan to Entresto. Feels well this morning and would like to be discharged. Exam Const: General: comfortable and no acute distress HENMT: Mouth: Yes moist mucous membranes Eyes: Sclera: sclerae normal Pupils: Equal, round and reactive pupils present Neck: Neck: supple and no JVD Resp: Effort & Inspection: normal respiratory effort Auscultation: clear to auscultation bilaterally Other: No rales are audible at this time Cardio: Rate: regular rate Rhythm: regular rhythm Other: No murmur no gallop GI: GI Palp: Yes Soft to palpation Auscultation: normal bowel sounds Skin: General skin exam: normal color Neuro: Other: Patient is sleeping when I entered the room to see him upon awakening is pleasant cooperative and offers no complaints Extrem: Other: Adequate perfusion, no edema Objective Data Vital Signs Vital Signs: Vital Signs - 24 hr 05/09/22 12:00 05/09/22 16:00 05/09/22 16:00 Temperature 36.3 C L Pulse Rate 76 72 67 Respiratory Rate 20 Blood Pressure 99/70 L Pulse Oximetry 99 Oxygen Delivery 05/09/22 19:54 05/09/22 20:00 05/09/22 20:00 Temperature 36.6 C Pulse Rate 80 79 79 Respiratory Rate 20 20 Blood Pressure 106/77 Pulse Oximetry 98 98 Oxygen Delivery Room Air 05/09/22 23:03 05/10/22 00:00 05/10/22 04:00 Temperature 36.6 C Pulse Rate 81 70 75 Respiratory Rate 18 Blood Pressure 141/83 H Pulse Oximetry 98 Oxygen Delivery 05/10/22 05:00 05/10/22 08:03 05/10/22 08:00 Temperature 36.5 C 35.9 C L Pulse Rate 68 78 77 Respiratory Rate 20 20 Blood Pressure 108/71 129/95 H Pulse Oximetry 98 98 98 Oxygen Delivery Room Air 05/10/22 09:28 05/10/22 08:00 Temperature Pulse Rate 80 Respiratory Rate Blood Pressure Pulse Oximetry Oxygen Delivery Room Air Intake/Output Intake/Output: Intake & Output 05/07/22 05/08/22 05/09/22 05/10/22 23:59 23:59 23:59 23:59 Intake Total 480 1960 600 Output Total 475 Balance 5 1960 600 Meds/Results Medications: Active Medications Generic Name Dose Route Start Last Admin Trade Name Freq PRN Reason Stop Dose Admin Acetaminophen 650 mg 05/08/22 13:58 Acetaminophen 325 Mg Tablet PO Q4H PRN Mild Pain (1-3) or Fever Hydrocodone Bitart/Acetaminophen 1 tab 05/08/22 13:58 05/10/22 01:30 Hydrocodone/Acetaminophen (*Crx) 5-325 Mg Tablet PO 1 tab Q4H PRN Administration Moderate Pain (4-10) Albuterol 2 puff 05/08/22 20:00 05/10/22 08:04 Albuterol Sulfate (*Sp) Aerosol 1 Puff INHALATION 2 puff Q4HRT HAM Administration Alprazolam 2 mg 05/09/22 09:00 05/10/22 09:28 Alprazolam (*Crx) 0.5 Mg Tablet PO 2 mg DAILY HAM Administration Dextrose 12.5 gm 05/08/22 16:44 Dextrose 50% 25 Gm/50 Ml Syringe IV PUSH PRN PRN Hypoglycemia Protocol Fluticasone Propionate 1 spray 05/08/22 21:00 05/10/22 09:29 Fluticasone Propionate 0
[2022-05-10 12:52] LABS: Glucose Point of Care 126 mg/dl (65-105)
--- NOTE | 2022-05-15 16:24 | P.DS_ITS ---
DS: Admitting Diagnosis Discharge Date 05/10/22 1600 <Martina Salazar PA-C - Last Filed: 05/15/22 16:29> Admitting Diagnosis Shortness of breath <Martina Salazar PA-C - Last Filed: 05/15/22 16:29> DS: Discharge Diagnosis Discharge Diagnosis (1) Acute on chronic systolic and diastolic heart failure, NYHA class 2: Code(s): I50.43 - Acute on chronic combined systolic (congestive) and diastolic (congestive) heart failure <Martina Salazar PA-C - Last Filed: 05/15 16:29> Status: Acute <Martina Salazar PA-C - Last Filed: 05/15/22 16:29> Assessment and Plan: * Chest x-ray shows no acute cardiopulmonary findings * CTA shows no PE pulmonary edema and perihepatic ascites * BNP elevated at 7340 * Troponin elevated at 0.117, 0.120, 0.107, esentially flat, probably elevated due to CHF exacerbation * Blood gas shows respiratory alkalosis * Echo from December of 2021 shows an EF of 25-30% with a grade 2 diastolic dy sfunction, mild pulmonary hypertension, enlarged LV. * Trend urine output * Daily weights * Continue IV Lasix changed to PO lasix 40mg PO BID * Continue aspirin, metoprolol, losartan * Cardiology was consulted and transitioned the patient from losartan to Entresto as well as adding spironolactone. Patient is euvolemic and Cardiology. She is stable enough for discharge today. He will have follow-up in office with Dr. Conner. <Martina Salazar PA-C - Last Filed: 05/15/22 16:29> (2) Elevated troponin: Code(s): R79.89 - Other specified abnormal findings of blood chemistry <Martina Salazar PA-C - Last Filed: 05/15/22 16:29> Status: Acute <Martina Salazar PA-C - Last Filed: 05/15/22 16:29> Assessment and Plan: * Troponin currently at 0.117, 0.120, 0.107 * Flat, related to CHF exacerbation * Troponins appear higher than normal * Probably related to fluid overload * Cardiology consulted * EKG really only have T Wave inversion in leads V4-6 is the only notable change since December <Martina KlineYANCI MyersC - Last Filed: 05/15/22 16:29> (3) Obstructive sleep apnea: Code(s): G47.33 - Obstructive sleep apnea (adult) (pediatric) <Martina CallejasYANCI worleyC - Last Filed: 05/15/22 16:29> Status: Acute <Martina Guerrero YANCI SalazarC - Last Filed: 05/15/22 16:29> Assessment and Plan: * Continue home CPAP at home settings <Martina Guerrero YANCI SalazarC - Last Filed: 05/15/22 16:29> (4) Diet-controlled diabetes mellitus: Code(s): E11.9 - Type 2 diabetes mellitus without complications <Martina KlineYANCI MyersC - Last Filed: 05/15/22 16:29> Status: Acute <Martina CallejasANDREW worley-C - Last Filed: 05/15/22 16:29> Assessment and Plan: * Current glucose is 195 * Accu-Cheks AC and HS * A1c 6.5 * Trend glucose * Adjust therapy as indicated <Martina KlineYANCI MyersC - Last Filed: 05/15/22 16:29> (5) Nonischemic cardiomyopathy: Code(s): I42.8 - Other cardiomyopathies <Martina KlineYANCI MyersC - Last Filed: 05/15/22 16:29> Status: Acute <Martina KlineAlissa Salazar PA-C - Last Filed: 05/15/22 16:29> Assessment and Plan: * Seems to be chronic * Cardiology on the case * Lasix on board * See above <Martina Salazar PA-C - Last Filed: 05/15/22 16:29> DS: Summary Hospital Course Reason for hospitalization: CHF exacerbation <Martina Salazar PA-C - Last Filed: 05/15/22 16:29> Hospital Course: See above for full hospital course. <Martina
--- NOTE | 2022-05-15 16:24 | PM.DS ---
DS: Admitting Diagnosis Discharge Date 05/10/22 1600 <Martina Salazar PA-C - Last Filed: 05/15/22 16:29> Admitting Diagnosis Shortness of breath <Martina Salazar PA-C - Last Filed: 05/15/22 16:29> DS: Discharge Diagnosis Discharge Diagnosis (1) Acute on chronic systolic and diastolic heart failure, NYHA class 2: Code(s): I50.43 - Acute on chronic combined systolic (congestive) and diastolic (congestive) heart failure <Martina Salazar PA-C - Last Filed: 05/15/22 16:29> Status: Acute <Martina RaisaAlissa Salazar PA-C - Last Filed: 05/15/22 16:29> Assessment and Plan: Chest x-ray shows no acute cardiopulmonary findings CTA shows no PE pulmonary edema and perihepatic ascites BNP elevated at 7340 Troponin elevated at 0.117, 0.120, 0.107, esentially flat, probably elevated due to CHF exacerbation Blood gas shows respiratory alkalosis Echo from December of 2021 shows an EF of 25-30% with a grade 2 diastolic dysfunction, mild pulmonary hypertension, enlarged LV. Trend urine output Daily weights Continue IV Lasix changed to PO lasix 40mg PO BID Continue aspirin, metoprolol, losartan Cardiology was consulted and transitioned the patient from losartan to Entresto as well as adding spironolactone. Patient is euvolemic and Cardiology. She is stable enough for discharge today. He will have follow-up in office with Dr. Conner. <Martina Salazar PA-C - Last Filed: 05/15/22 16:29> (2) Elevated troponin: Code(s): R79.89 - Other specified abnormal findings of blood chemistry <Martina Salazar PA-C - Last Filed: 05/15/22 16:29> Status: Acute <Martina Salazar PA-C - Last Filed: 05/15/22 16:29> Assessment and Plan: Troponin currently at 0.117, 0.120, 0.107 Flat, related to CHF exacerbation Troponins appear higher than normal Probably related to fluid overload Cardiology consulted EKG really only have T Wave inversion in leads V4-6 is the only notable change since December <Martina Salazar PA-C - Last Filed: 05/15/22 16:29> (3) Obstructive sleep apnea: Code(s): G47.33 - Obstructive sleep apnea (adult) (pediatric) <Martina Salazar PA-C - Last Filed: 05/15/22 16:29> Status: Acute <Martina Salazar PA-C - Last Filed: 05/15/22 16:29> Assessment and Plan: Continue home CPAP at home settings <Martina Salazar PA-C - Last Filed: 05/15/22 16:29> (4) Diet-controlled diabetes mellitus: Code(s): E11.9 - Type 2 diabetes mellitus without complications <Martina Salazar PA-C - Last Filed: 05/15/22 16:29> Status: Acute <Martina Salazar PA-C - Last Filed: 05/15/22 16:29> Assessment and Plan: Current glucose is 195 Accu-Cheks AC and HS A1c 6.5 Trend glucose Adjust therapy as indicated <Martina Salazar PA-C - Last Filed: 05/15/22 16:29> (5) Nonischemic cardiomyopathy: Code(s): I42.8 - Other cardiomyopathies <Martina Salazar PA-C - Last Filed: 05/15/22 16:29> Status: Acute <Martina Salazar PA-C - Last Filed: 05/15/22 16:29> Assessment and Plan: Seems to be chronic Cardiology on the case Lasix on board See above <Martina Salazar PA-C - Last Filed: 05/15/22 16:29> DS: Summary Hospital Course Reason for hospitalization: CHF exacerbation <Martina Salazar PA-C - Last Filed: 05/15/22 16:29> Hospital Course: See above for full hospital course. <Martina Salazar PA-C - Last Filed: 05/15/22 16:29> Status at Discharge Overall status at discharge: patient is progressing back to baseline <Martina Salazar PA-C - Last Filed: 05/15/22 16:29> Time Spent with Patient Time attestation: Total time spent providing and/or coordinating discharge services: 35 mins <Martina Salazar PA-C - Last Filed: 05/15/22 16:29> Time spent: Greater than 30 minutes <Martina Salazar PA-C - Last Filed: 05/15/22 16
== END 2022-05-10 14:10 | disposition home or self-care (01) ==
LOC: ANHED 13:34 → ANHIMU 14:48
PROVIDERS: Nurse Practitioner; Admitting Provider Chiropractor; Emergency Provider Emergency Medicine; PCP Internal Medicine; Visit Provider Student in an Organized Health Care Education/Training Program
DX: I11.0 Hypertensive heart disease with heart failure (principal); I50.43 Acute on chronic combined systolic (congestive) and diastolic (congestive) heart failure; R06.02 Shortness of breath; R77.8 Other specified abnormalities of plasma proteins; F41.9 Anxiety disorder, unspecified; M19.90 Unspecified osteoarthritis, unspecified site; E11.9 Type 2 diabetes mellitus without complications; G47.33 Obstructive sleep apnea (adult) (pediatric); Z99.89 Dependence on other enabling machines and devices; G43.909 Migraine, unspecified, not intractable, without status migrainosus; Z80.1 Family history of malignant neoplasm of trachea, bronchus and lung; Z77.22 Contact with and (suspected) exposure to environmental tobacco smoke (acute) (chronic); I42.8 Other cardiomyopathies; J81.1 Chronic pulmonary edema; R18.8 Other ascites; M79.89 Other specified soft tissue disorders; R42 Dizziness and giddiness; R53.83 Other fatigue; R53.1 Weakness; E87.70 Fluid overload, unspecified; R79.89 Other specified abnormal findings of blood chemistry; E87.3 Alkalosis; I45.89 Other specified conduction disorders; R94.31 Abnormal electrocardiogram [ECG] [EKG]; B19.20 Unspecified viral hepatitis C without hepatic coma; Z20.822 Contact with and (suspected) exposure to COVID-19; Z79.82 Long term (current) use of aspirin; Z79.51 Long term (current) use of inhaled steroids; Z79.899 Other long term (current) drug therapy
CPT/HCPCS: 36415; 36600; 71046; 71275; 80053; 82805; 82948; 83036; 83690; 83735; 83880; 84484; 85025; 85610; 85730; 93005; 94640; 96372; 96374; 96376; 99285; A9270; C9803; G0378; J1644; J1940; Q9967; U0003; U0005

== ENCOUNTER 2022-06-12 19:41 | Inpatient (IN) | payer MEDICAID, SELFPAY ==
[2022-06-12] VITALS (17 sets, daily range): BP systolic 114–131; BP diastolic 84–98; PULSE 77–89; RESP 11–24; TEMP 36.3–36.4; O2SAT 86–100; BMI 30.4
--- NOTE | ~2022-06-12 | XR_ITS ---
EXAMINATION: XR chest 2V Exam Date/Time: 06/12/2022 19:52 CDT HISTORY: short of breath Comparison: 05/08/2022. RESULT: Lines, tubes, and devices: None. Lungs and pleura: Hazy groundglass opacities in the left lower lung. Cardiomediastinal silhouette: Stable. Other: No acute osseous or upper abdominal finding. IMPRESSION: Left lower lung opacities may reflect infection in the appropriate clinical context. Reviewed, dictated and finalized at location K. IMPRESSION: Left lower lung opacities may reflect infection in the appropriate clinical con text.
--- NOTE | ~2022-06-12 | XR_ITS ---
XR chest 1V portable INDICATION: Dyspnea. TECHNIQUE: 2 view chest. FINDINGS: Comparison to multiple prior studies sequentially, with oldest reviewed study dated 022. There is mild bilateral interstitial prominence and peribronchial cuffing. There is no focal consoli dation, pleural effusion, or pneumothorax. The cardiomediastinal silhouette is normal. IMPRESSION: 1. Findings most consistent with bronchiolitis versus an atypical or viral pneumonia. Reviewed, dictated and finalized at location A. IMPRESSION: 1. Findings most consistent with bronchiolitis versus an atypical or viral [facility].
--- NOTE | 2022-06-12 19:46 | ECG_ITS ---
Measurements Intervals [place] Rate: 84 P: 60 TX: 180 QRS: -34 QRSD: 108 T: 128 QT: 408 QTc: 484 Interpretive Statements SINUS RHYTHM T-WAVE ABNORMALITY, CONSIDER ISCHEMIA Electronically Signed On 06-13-2022 8:24:45 CDT by Philippe Lei M.D.
[2022-06-12 20:13] LABS: Basophils Absolute Auto 0.1 K/mm3 (0.0-0.1); Basophils Percent Auto 0.5 % (0.2-1.2); Eosinophils Absolute Auto 0.2 K/mm3 (0-0.3); Eosinophils Percent Auto 1.7 % (0-4.4); Hematocrit 46.4 % (42.0-52.0); Hemoglobin 15.1 g/dL (14.0-18.0); Immature Granulocyte Absolute 0.07 K/mm3 (0.00-0.031); Immature Granulocyte Percent A 0.5 % (0-0.5); Lymphocytes Absolute Auto 2.65 K/mm3 (0.9-3.2); Lymphocytes Percent Auto 20.7 % (18.3-44.2); Mean Corpuscular HGB Conc 32.5 g/dl (32-36); Mean Corpuscular Hemoglobin 31.1 pg (26-34); Mean Corpuscular Volume 95.7 fl (80-100); Mean Platelet Volume 10.3 fl (7.4-10.4); Monocytes Absolute Auto 1.7 K/mm3 (0.1-0.6); Monocytes Percent Auto 13.4 % (2.6-8.5); Neutrophils Absolute Auto 8.1 K/mm3 (1.3-6.7); Neutrophils Percent Auto 63.2 % (45.5-73.1); Platelet Count Result 230 k/mm3 (150-375); Red Blood Count 4.85 M/mm3 (4.6-6.20); Red Cell Distribution Width 15.1 % (11.5-14.5); White Blood Count 12.8 K/mm3 (4.5-10.0)
--- NOTE | 2022-06-12 20:16 | ED.GENADULT ---
HPI - General Adult General Chief complaint: Shortness of Breath/Dyspnea Stated complaint: short of breath Time Seen by Provider: 06/12/22 19:53 History of Present Illness HPI narrative: This is a 56-year-old male with history of CHF presenting ED for shortness of breath. Patient says he was watching TV earlier today when he became dyspneic at rest. It was associated with a dull chest pressure in the middle of his chest, that was nonradiating, 5/10 in intensity, and has since resolved. He has never experienced pain like this before. There were no exacerbating or alleviating factors. It was associated with strong feelings of anxiety. He did not vomit or become diaphoretic. Patient noted that he has had Recent dyspnea on exertion. Typically he can walk 1 block without becoming winded but he is unable to make 20 ft at this time. Fever chills. He denies productive cough, nausea vomiting or diarrhea. He denies lower extremity edema although he says he typically has swelling in his abdomen when he is overloaded. Related Data Home Medications Medication Instructions Recorded Confirmed albuterol 90 mcg/actuation aerosol See Rx Instructions .Route .COMPLEX 05/08/22 05/08/22 inhaler alprazolam 2 mg tablet 2 mg PO DAILY 05/08/22 05/08/22 Allergies Allergy/AdvReac Type Severity Reaction Status Date / Time nitroglycerin AdvReac Hypotension Verified 06/12/22 20:09 Review of Systems Review of Systems: CONSTITUTIONAL: Denies night sweats. EYES: No eye pain ENT: Denies rhinorrhea CARDIOVASCULAR: Denies palpitations RESPIRATORY: Denies hemoptysis GASTROINTESTINAL: Denies hematemesis GENITOURINARY: Denies hematuria. SKIN: Denies rash MUSCULOSKELETAL: Denies myalgia. NEUROLOGIC: Denies weakness. PSYCHIATRIC: Denies delusions PMFSH Past Medical History Medical History Anxiety Arthritis Diet-controlled diabetes mellitus Essential hypertension Hepatitis C Migraine Obstructive sleep apnea Shoulder pain, right Systolic congestive heart failure The patient reports that he had CHF about 6-8 years ago when he lived in [place]. After medication adjustments his cardiac function normalized. Echocardiogram in April 2020 showed an ejection fraction of 40 to 45%. Surgical History Surgical History History of cardiac catheterization Approximately 6 years ago and was normal per patient report. Status post right rotator cuff repair Family History Family History Mother Lung cancer Hypertension Father Hypertension Sibling Hypertension Acute myocardial infarction Sibling Hypertension Sibling Hypertension Sibling Hypertension Sibling Hypertension Social History Social History Social History: Patient is from [place] but moved to the area in August 2019 after he and his . They have 3 grown children. patient [facility] in [place]. He said there was 24 units he is the only male. He does elect his sister Violetta to be his surrogate and he wishes to be a full code at this time. 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 Head atraumatic. 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
[2022-06-12 20:23] LABS: Alanine Aminotransferase 58 U/L (6-50); Albumin Level 4.6 g/dL (3.5-5.1); Alkaline Phosphatase 94 U/L (38-126); Anion Gap 12 mmol/L (8-16); Aspartate Amino Transferase 60 U/L (17-59); Bilirubin,Total 1.2 mg/dL (0.2-1.3); Blood Urea Nitrogen 25 mg/dL (9-20); Calcium 8.7 mg/dL (8.4-10.2); Carbon Dioxide 25 mmol/L (22-30); Chloride 101 mmol/L (98-107); Estimated CRCL calculation 72 ml/min; Estimated Glomerular Filt Rate > 60; Glucose 137 mg/dL (65-110); Potassium 4.6 mmol/L (3.4-5.0); Sodium 138 mmol/L (137-145)
[2022-06-12] MEDS: FUROSEMIDE INJ 40 MG/4 ML VIAL IV PUSH (20:23)
[2022-06-12 20:30] LABS: INR 1.3; Partial Thromboplastin Time 28.1 SECONDS (22.3-36.8); Prothrombin Time 15.4 Seconds (11.1-14.7)
[2022-06-12 20:37] LABS: NT Pro B Type Natriuretic Pept 11600 pg/mL (5-100); Troponin I 0.065 ng/mL (0.000-0.034)
[2022-06-12] MEDS: ASPIRIN 81 MG CHEWABLE TABLET 324 MG PO (21:08)
[2022-06-12 21:10] LABS: SARS-CoV-2 RNA PCR Negative
--- NOTE | 2022-06-12 22:35 | PM.IMHP ---
H&P: HPI History of Present Illness Date/Time: 06/12/22 22:35 Chief Complaint: Shortness of breath with exertion and lying down Narrative: 56-year-old male with past medical history of combined systolic and diastolic heart failure, mild pulmonary hypertension, essential hypertension, diet-controlled diabetes mellitus and untreated obstructive sleep apnea who presented to the ER via private vehicle due to dyspnea on exertion. The patient reports that for the last week he has had progressive dyspnea on exertion. He can usually walk several 100 ft without dyspnea but over the last several days he has not been able to make it 6 ft across the room without stopping to rest. It is been accompanied by orthopnea and paroxysmal nocturnal dyspnea. He denies any lower extremity swelling, increased abdominal distension, chest pain or weight gain. He reports that his weight has been steady at 200 lb. When he was hospitalized in April the patient's medications were adjusted to Entresto and metoprolol. Patient was also supposed be started on spironolactone but it does not look like a prescription was provided at the time of discharge. The patient reports that he makes all of his own meals at home and does not add any salt. He reports being compliant with his medications. He denies any chest pain. On presentation the ER the patient did have mildly elevated troponin but this appeared to be stable compared to baseline. He has been having a dry cough for the last week or so. He denies any fevers or chills. He does report feeling sweaty any time he lays down but is accompanied by the sensation of panic and orthopnea. Patient received 40 mg of IV Lasix in the ER and has already produced 1.5 L of urine output. He reports that he does snore. He had a polysomnogram in the past that indicate he has obstructive sleep apnea. He never followed up with a CPAP titration. He is interested in the new sleep apnea treatment with [facility]. The patient reports symptoms of peripheral neuropathy. Evidently in 2019 he was started on gabapentin and has worked very well for him based stopped the medication when his neuropathic pain resolved. Since that time he has had significant burning in his feet and has been trying arthritis cream to his feet. He reports that he got a chemical burn from the arthritis cream another skin is peeling from his feet. Review of Systems Review of Systems: 12 systems were reviewed with pertinent positives and negatives per HPI. Except as documented in the HPI, all other systems were reviewed and are negative. [facility] Past Medical History Medical History (Updated 06/13/22 @ 02:38 by Skylar Severino DO) Anxiety Arthritis Combined systolic and diastolic congestive heart failure Echocardiogram 12/2021: Severely reduced left ventricular systolic function 25-30%, grade 2 diastolic dysfunction, mild pulmonary hypertension, moderate biatrial enlargement, mild aortic valve regurgitation, [id number] mitral valve regurgitation Diabetic peripheral neuropathy Diet-controlled diabetes mellitus Essential hypertension Hepatitis C Migraine Nonischemic cardiomyopathy Obstructive sleep apnea Needs repeat sleep study Pulmonary hypertension Surgical History Surgical History (Updated 06/13/22 @ 02:22 by Skylar Severino DO) History of cardiac catheterization Performed in [place] approximately July 2019 and was normal per patient report. Status post right rotator cuff repair (01/2021) Family History Family History Mother Lung cancer Hypertension Emphysema lung Father Hypertension Sibling Acute myocardial infarction Hypertension Sibling Hypertension Sibling Hypertension Sibling Hypertension Sibling Hypertension Social History Social History (Updated 06/13/22 @ 02:31 by Skylar Severino DO) Social History: Patient is from [place] but moved to the area in August 2019 af
--- NOTE | 2022-06-12 23:05 | ADMGEN ---
This patient, Hayes Meza, was admitted to Medical Room 244-. Patient/family oriented to hospital policies and general routines including ID bracelet, bed and alarms, visiting hours, pain management, procedures, bathroom and other care routines, personal items, smoking policy, room service/diet, and visiting hours. Information on how to activate the Rapid Response Team has been discussed. Patient/Family are encouraged to report perceived risks to care and to ask questions if they do not understand what they are told or what they should do.
[2022-06-12 23:53] LABS: Troponin I 0.074 ng/mL (0.000-0.034)
[2022-06-13] VITALS (11 sets, daily range): BP systolic 117–134; BP diastolic 78–99; PULSE 64–89; RESP 18–20; TEMP 36–36.3; O2SAT 92–98
[2022-06-13 02:23] LABS: Glucose Point of Care 171 mg/dl (65-105)
[2022-06-13 06:28] LABS: Anion Gap 12 mmol/L (8-16); Blood Urea Nitrogen 28 mg/dL (9-20); Calcium 9.1 mg/dL (8.4-10.2); Carbon Dioxide 25 mmol/L (22-30); Chloride 99 mmol/L (98-107); Estimated CRCL calculation 72 ml/min; Estimated Glomerular Filt Rate > 60; Glucose 101 mg/dL (65-110); Potassium 3.6 mmol/L (3.4-5.0); Sodium 136 mmol/L (137-145)
[2022-06-13] MEDS: hydroCHLOROthiazide 25 MG TABLET PO (09:57)
[2022-06-13] MEDS: POTASSIUM CHLORIDE 20 MEQ TABLET.ER PO ×2 (09:57→17:58)
[2022-06-13] MEDS: METOPROLOL SUCCINATE EXT REL 100 MG TABCR PO (09:58)
[2022-06-13] MEDS: EMPAGLIFLOZIN 12.5 MG TABLET PO (09:58)
[2022-06-13] MEDS: GABAPENTIN 300 MG CAPSULE PO ×3 (09:58→17:58)
[2022-06-13] MEDS: SPIRONOLACTONE 25 MG TABLET PO (09:59)
[2022-06-13] MEDS: ENOXAPARIN 40 MG/0.4 ML SYRINGE SUB-Q (09:59)
[2022-06-13] MEDS: FLUTICASONE PROPIONATE 0.05% NA SPR 16 GM BTL (*BKC) 1 SPRAY NASAL ×2 (09:59→22:07)
[2022-06-13] MEDS: SACUBITRIL/VALSARTAN 49-51 MG TABLET 1 TABLET PO ×2 (09:59→22:07)
[2022-06-13] MEDS: FUROSEMIDE INJ 40 MG/4 ML VIAL IV PUSH (10:00)
[2022-06-13] MEDS: ALPRAZolam (*CRX) 0.5 MG TABLET 2 MG PO (10:12)
--- NOTE | 2022-06-13 13:08 | PM.IMPN ---
Progress Note: A&P Assessment and Plan (1) CHF exacerbation: Qualifiers: Heart failure type: combined systolic and diastolic Qualified Code(s): I50.43 - Acute on chronic combined systolic (congestive) and diastolic (congestive) heart failure Code(s): I50.9 - Heart failure, unspecified Status: Acute Assessment and Plan: Acute on chronic combined systolic and diastolic congestive heart failure exacerbation. continue patient's home Entresto and metoprolol. IV Lasix 40 mg daily. strict I&O's and daily weights. start patient on spironolactone that was recommended by Cardiology during the patient's last hospitalization. low-sodium fluid-restricted diet with 1.5 L. Started on Jardiance. Cardiology notified of admission and will plan to see a few weeks after discharge for follow up. (2) Elevated troponin: Code(s): R77.8 - Other specified abnormalities of plasma proteins Status: Acute Assessment and Plan: Patient has chronic troponin elevation due to his chronic heart failure. His troponin appears to be at baseline, likely secondary to demand ischemia. No chest pain or EKG changes. (3) Hypertension: Qualifiers: Hypertension type: essential hypertension Qualified Code(s): I10 - Essential (primary) hypertension Code(s): I10 - Essential (primary) hypertension Status: Chronic Assessment and Plan: Entresto, metoprolol and spironolactone. Hold HCTZ while diuresing. Blood pressures are stable. (4) Elevated LFTs: Code(s): R79.89 - Other specified abnormal findings of blood chemistry Status: Chronic Assessment and Plan: Appears to be intermittent in nature. Most likely due to CHF exacerbation, but does have a history of hepatitis C but this does not appear to be acutely active. No jaundice. Monitor. (5) Obstructive sleep apnea: Code(s): G47.33 - Obstructive sleep apnea (adult) (pediatric) Status: Chronic Assessment and Plan: The patient would benefit from referral for repeat sleep study and CPAP titration. AHI 40 in 2020. (6) Diet-controlled diabetes mellitus: Code(s): E11.9 - Type 2 diabetes mellitus without complications Status: Chronic Assessment and Plan: Jardiance started as above for history of heart failure and diabetes. Patient is not on any other medications for diabetes. (7) Diabetic peripheral neuropathy: Code(s): E11.42 - Type 2 diabetes mellitus with diabetic polyneuropathy Status: Acute Assessment and Plan: Patient had great success with gabapentin 600 mg t.i.d. previously, but stopped taking it when his neuropathy improved. Restarted on gabapentin 300 mg TID and titrate the dose upward for affect. Plan CODE STATUS: FULL CODE Disposition: home when medically stable. Time Spent With Patient Time with patient: 15 - 25 minutes Subjective Date/time seen: 06/13/22 13:08 Interval history: His breathing feels better today. He has a cough that is non-productive. He denies SOB at rest, chest pain, palpitations, fever, chills, or lower extremity edema. He does endorse neuropathy in both feet. Review of Systems Review of Systems: All systems reviewed & are unremarkable except as noted in HPI and below Exam Narrative: General:?No acute distress. Patient lying in bed. HEENT:?Normocephalic Atraumatic. PERRL. EOM intact. Conjunctiva anicteric. Mucous membranes dry. Neck:??Supple. No JVD. Respiratory:?Lungs are clear to auscultation bilateral upper lobes, fine crackles RLL. RR regular and unlabored. Speaking in full sentences. Cardiovascular:??Regular rate and rhythm with S1-S2. No murmurs, gallops or rubs. Gastrointestinal:??Abdomen soft and nontender. Bowel sounds present in all 4 quadrants. No suprapubic tenderness. Skin:??Warm and dry. No rash or lesions. Scattered tattoos. Fair turgor. Extremities:
[2022-06-14] VITALS (15 sets, daily range): BP systolic 119–137; BP diastolic 74–96; PULSE 75–100; RESP 14–20; TEMP 36–36.4; O2SAT 93–99
[2022-06-14 05:55] LABS: Basophils Absolute Auto 0.1 K/mm3 (0.0-0.1); Basophils Percent Auto 0.7 % (0.2-1.2); Eosinophils Absolute Auto 0.5 K/mm3 (0-0.3); Eosinophils Percent Auto 3.4 % (0-4.4); Hematocrit 52.5 % (42.0-52.0); Hemoglobin 17.1 g/dL (14.0-18.0); Immature Granulocyte Absolute 0.06 K/mm3 (0.00-0.031); Immature Granulocyte Percent A 0.4 % (0-0.5); Lymphocytes Absolute Auto 2.31 K/mm3 (0.9-3.2); Lymphocytes Percent Auto 16.3 % (18.3-44.2); Mean Corpuscular HGB Conc 32.6 g/dl (32-36); Mean Corpuscular Hemoglobin 30.8 pg (26-34); Mean Corpuscular Volume 94.4 fl (80-100); Mean Platelet Volume 10.4 fl (7.4-10.4); Monocytes Absolute Auto 2.2 K/mm3 (0.1-0.6); Monocytes Percent Auto 15.7 % (2.6-8.5); Neutrophils Percent Auto 63.5 % (45.5-73.1); Platelet Count Result 283 k/mm3 (150-375); Red Blood Count 5.56 M/mm3 (4.6-6.20); Red Cell Distribution Width 14.8 % (11.5-14.5); White Blood Count 14.2 K/mm3 (4.5-10.0)
[2022-06-14 06:12] LABS: Anion Gap 13 mmol/L (8-16); Blood Urea Nitrogen 24 mg/dL (9-20); Calcium 8.9 mg/dL (8.4-10.2); Carbon Dioxide 28 mmol/L (22-30); Chloride 98 mmol/L (98-107); Estimated CRCL calculation 59 ml/min; Estimated Glomerular Filt Rate > 60; Glucose 122 mg/dL (65-110); Magnesium 2.4 mg/dL (1.6-2.3); Potassium 4.4 mmol/L (3.4-5.0); Sodium 139 mmol/L (137-145)
[2022-06-14 06:41] LABS: INR 1.1
--- NOTE | 2022-06-14 07:48 | PM.IMPN ---
Progress Note: A&P Assessment and Plan (1) CHF exacerbation: Qualifiers: Heart failure type: combined systolic and diastolic Qualified Code(s): I50.43 - Acute on chronic combined systolic (congestive) and diastolic (congestive) heart failure Code(s): I50.9 - Heart failure, unspecified Status: Acute Assessment and Plan: Acute on chronic combined systolic and diastolic congestive heart failure exacerbation.? continue patient's home Entresto and metoprolol.? IV Lasix 40 mg daily.? strict I&O's and daily weights.? start patient on spironolactone that was recommended by Cardiology during the patient's last hospitalization.? low-sodium fluid-restricted diet with 1.5 L. Started on Jardiance. Cardiology notified of admission and will plan to see a few weeks after discharge for follow up. stable (2) Elevated troponin: Code(s): R77.8 - Other specified abnormalities of plasma proteins Status: Acute Assessment and Plan: Patient has chronic troponin elevation due to his chronic heart failure.? His troponin appears to be at baseline, likely secondary to demand ischemia.? No chest pain or EKG changes. (3) Hypertension: Qualifiers: Hypertension type: essential hypertension Qualified Code(s): I10 - Essential (primary) hypertension Code(s): I10 - Essential (primary) hypertension Status: Chronic Assessment and Plan: Entresto, metoprolol and spironolactone. Hold HCTZ while diuresing. Blood pressures are stable. (4) Elevated LFTs: Code(s): R79.89 - Other specified abnormal findings of blood chemistry Status: Chronic Assessment and Plan: Appears to be intermittent in nature.? Most likely due to CHF exacerbation, but does have a history of hepatitis C but this does not appear to be acutely active. No jaundice. Monitor. (5) Obstructive sleep apnea: Code(s): G47.33 - Obstructive sleep apnea (adult) (pediatric) Status: Chronic Assessment and Plan: The patient would benefit from referral for repeat sleep study and CPAP titration. AHI 40 in 2020. (6) Diet-controlled diabetes mellitus: Code(s): E11.9 - Type 2 diabetes mellitus without complications Status: Chronic Assessment and Plan: Jardiance started as above for history of heart failure and diabetes. Patient is not on any other medications for diabetes. (7) Diabetic peripheral neuropathy: Code(s): E11.42 - Type 2 diabetes mellitus with diabetic polyneuropathy Status: Acute Assessment and Plan: Patient had great success with gabapentin 600 mg t.i.d. previously, but stopped taking it when his neuropathy improved. Restarted on gabapentin 300 mg TID and titrate the dose upward for affect.? (8) Leukocytosis: Code(s): D72.829 - Elevated white blood cell count, unspecified Status: Acute Assessment and Plan: Monitor vital signs, I&Os, neuro status and patient is a fall risk Follow WBC, serum electrolytes, temperature curves and cultures Send sputum cultures Obtain Pneumococcal antigen urine and legionella pneumophila Ag Ur Oxygen via NC; wean as tolerated. Keep SpO2 greater than 88% Ceftriaxone 2 gram IV q24H and Azithromycin 500mg IV q24H DuoNeb q6H and Albuterol q2H PRN add Mucinex P.r.n. Tylenol, Zofran, and melatonin Subjective Date/time seen: 06/14/22 07:48 patient was found have 2 L of oxygen on per nasal cannula this morning. Patient does not wear oxygen at baseline. Home oxygen evaluation WNL. Patient will no longer need oxygen. repeat chest x-ray suggested possible atypical pneumonia. Patient was started on Rocephin and azithromycin this morning. Patient did develop a leukocytosis. He has a productive cough. Continue current medication regimen. Review of Systems Review of Systems: All systems reviewed & are unremarkable except as noted in HPI and below Exam Narrative: General: No acute distres
[2022-06-14] MEDS: POTASSIUM CHLORIDE 20 MEQ TABLET.ER PO ×2 (09:20→17:57)
[2022-06-14] MEDS: FLUTICASONE PROPIONATE 0.05% NA SPR 16 GM BTL (*BKC) 1 SPRAY NASAL ×2 (09:20→20:51)
[2022-06-14] MEDS: SACUBITRIL/VALSARTAN 49-51 MG TABLET 1 TABLET PO ×2 (09:20→20:50)
[2022-06-14] MEDS: METOPROLOL SUCCINATE EXT REL 100 MG TABCR PO (09:21)
[2022-06-14] MEDS: SPIRONOLACTONE 25 MG TABLET PO (09:22)
[2022-06-14] MEDS: GABAPENTIN 300 MG CAPSULE PO ×3 (09:22→17:57)
[2022-06-14] MEDS: EMPAGLIFLOZIN 12.5 MG TABLET PO (09:22)
[2022-06-14] MEDS: ENOXAPARIN 40 MG/0.4 ML SYRINGE SUB-Q (09:23)
[2022-06-14] MEDS: FUROSEMIDE INJ 40 MG/4 ML VIAL IV PUSH (09:23)
[2022-06-14] MEDS: ALPRAZolam (*CRX) 0.5 MG TABLET 2 MG PO (09:31)
--- NOTE | 2022-06-14 09:51 | PCRCNOTE ---
Home eval completed. Patient does not require home O2. Rn notified.
[2022-06-14] MEDS: guaiFENesin 12 HR 600 MG TABCR PO (20:50)
[2022-06-15] VITALS: PULSE 80
[2022-06-15 04:00] VITALS: PULSE 91
[2022-06-15 05:53] LABS: Basophils Absolute Auto 0.1 K/mm3 (0.0-0.1); Basophils Percent Auto 0.7 % (0.2-1.2); Eosinophils Absolute Auto 0.4 K/mm3 (0-0.3); Eosinophils Percent Auto 2.9 % (0-4.4); Hematocrit 53.7 % (42.0-52.0); Hemoglobin 17.5 g/dL (14.0-18.0); Immature Granulocyte Absolute 0.07 K/mm3 (0.00-0.031); Immature Granulocyte Percent A 0.5 % (0-0.5); Lymphocytes Absolute Auto 2.91 K/mm3 (0.9-3.2); Lymphocytes Percent Auto 21.3 % (18.3-44.2); Mean Corpuscular HGB Conc 32.6 g/dl (32-36); Mean Corpuscular Hemoglobin 30.2 pg (26-34); Mean Corpuscular Volume 92.7 fl (80-100); Mean Platelet Volume 10.6 fl (7.4-10.4); Monocytes Absolute Auto 2.3 K/mm3 (0.1-0.6); Monocytes Percent Auto 16.6 % (2.6-8.5); Neutrophils Absolute Auto 7.9 K/mm3 (1.3-6.7); Platelet Count Result 307 k/mm3 (150-375); Red Blood Count 5.79 M/mm3 (4.6-6.20); Red Cell Distribution Width 14.8 % (11.5-14.5); White Blood Count 13.6 K/mm3 (4.5-10.0)
[2022-06-15 05:56] VITALS: BP 122/86; PULSE 75; RESP 20; TEMP 36.5; O2SAT 93
[2022-06-15 06:00] LABS: Alanine Aminotransferase 38 U/L (6-50); Alkaline Phosphatase 88 U/L (38-126); Anion Gap 11 mmol/L (8-16); Aspartate Amino Transferase 33 U/L (17-59); Blood Urea Nitrogen 26 mg/dL (9-20); Calcium 8.9 mg/dL (8.4-10.2); Carbon Dioxide 23 mmol/L (22-30); Chloride 102 mmol/L (98-107); Estimated CRCL calculation 72 ml/min; Estimated Glomerular Filt Rate > 60; Glucose 125 mg/dL (65-110); INR 1.1; Potassium 4.3 mmol/L (3.4-5.0); Prothrombin Time 13.8 Seconds (11.1-14.7); Sodium 136 mmol/L (137-145)
--- NOTE | 2022-06-15 07:56 | PM.DS ---
DS: Admitting Diagnosis Discharge Date 06/15/2022 Admitting Diagnosis acute on chronic combined systolic and diastolic congestive heart failure exacerbation Hypertension Elevated LFTs Elevated troponin GINA Diet-controlled diabetes mellitus type 2 Peripheral neuropathy DS: Discharge Diagnosis Discharge Diagnosis (1) CHF exacerbation: Qualifiers: Heart failure type: combined systolic and diastolic Qualified Code(s): I50.43 - Acute on chronic combined systolic (congestive) and diastolic (congestive) heart failure Code(s): I50.9 - Heart failure, unspecified Status: Acute Assessment and Plan: Acute on chronic combined systolic and diastolic congestive heart failure exacerbation.? continue patient's home Entresto and metoprolol.? IV Lasix 40 mg daily.? strict I&O's and daily weights.? start patient on spironolactone that was recommended by Cardiology during the patient's last hospitalization.? low-sodium fluid-restricted diet with 1.5 L. Started on Jardiance. Cardiology notified of admission and will plan to see a few weeks after discharge for follow up. stable (2) Elevated troponin: Code(s): R77.8 - Other specified abnormalities of plasma proteins Status: Acute Assessment and Plan: Patient has chronic troponin elevation due to his chronic heart failure.? His troponin appears to be at baseline, likely secondary to demand ischemia.? No chest pain or EKG changes. (3) Hypertension: Qualifiers: Hypertension type: essential hypertension Qualified Code(s): I10 - Essential (primary) hypertension Code(s): I10 - Essential (primary) hypertension Status: Chronic Assessment and Plan: Entresto, metoprolol and spironolactone. Hold HCTZ while diuresing. Blood pressures are stable. (4) Elevated LFTs: Code(s): R79.89 - Other specified abnormal findings of blood chemistry Status: Chronic Assessment and Plan: Appears to be intermittent in nature.? Most likely due to CHF exacerbation, but does have a history of hepatitis C but this does not appear to be acutely active. No jaundice. Monitor. (5) Obstructive sleep apnea: Code(s): G47.33 - Obstructive sleep apnea (adult) (pediatric) Status: Chronic Assessment and Plan: The patient would benefit from referral for repeat sleep study and CPAP titration. AHI 40 in 2020. (6) Diet-controlled diabetes mellitus: Code(s): E11.9 - Type 2 diabetes mellitus without complications Status: Chronic Assessment and Plan: Jardiance started as above for history of heart failure and diabetes. Patient is not on any other medications for diabetes. (7) Diabetic peripheral neuropathy: Code(s): E11.42 - Type 2 diabetes mellitus with diabetic polyneuropathy Status: Acute Assessment and Plan: Patient had great success with gabapentin 600 mg t.i.d. previously, but stopped taking it when his neuropathy improved. Restarted on gabapentin 300 mg TID and titrate the dose upward for affect.? (8) Leukocytosis: Code(s): D72.829 - Elevated white blood cell count, unspecified Status: Acute Assessment and Plan: Monitor vital signs, I&Os, neuro status and patient is a fall risk Follow WBC, serum electrolytes, temperature curves and cultures Send sputum cultures Obtain Pneumococcal antigen urine and legionella pneumophila Ag Ur Oxygen via NC; wean as tolerated. Keep SpO2 greater than 88% Ceftriaxone 2 gram IV q24H and Azithromycin 500mg IV q24H DuoNeb q6H and Albuterol q2H PRN add Mucinex P.r.n. Tylenol, Zofran, and melatonin DS: Summary Hospital Course Reason for hospitalization: acute on chronic respiratory failure Hospital Course: 56-year-old male with past medical history of combined systolic and diastolic heart failure, mild pulmonary hypertension, essential hypertension, diet-controlled diabetes mellitus and untreated obstructive sleep
[2022-06-15] MEDS: POTASSIUM CHLORIDE 20 MEQ TABLET.ER PO (08:34)
[2022-06-15] MEDS: EMPAGLIFLOZIN 12.5 MG TABLET PO (08:34)
[2022-06-15] MEDS: SACUBITRIL/VALSARTAN 49-51 MG TABLET 1 TABLET PO (08:34)
[2022-06-15] MEDS: GABAPENTIN 300 MG CAPSULE PO (08:34)
[2022-06-15] MEDS: guaiFENesin 12 HR 600 MG TABCR PO (08:34)
[2022-06-15] MEDS: SPIRONOLACTONE 25 MG TABLET PO (08:34)
[2022-06-15] MEDS: METOPROLOL SUCCINATE EXT REL 100 MG TABCR PO (08:34)
[2022-06-15] MEDS: FLUTICASONE PROPIONATE 0.05% NA SPR 16 GM BTL (*BKC) 1 SPRAY NASAL (08:35)
[2022-06-15] MEDS: FUROSEMIDE INJ 40 MG/4 ML VIAL IV PUSH (08:35)
[2022-06-15] MEDS: ENOXAPARIN 40 MG/0.4 ML SYRINGE SUB-Q (08:35)
[2022-06-15 08:47] LABS: Glucose Point of Care 240 mg/dl (65-105)
[2022-06-15 09:50] VITALS: O2SAT 96
[2022-06-15 12:27] LABS: Glucose Point of Care 189 mg/dl (65-105)
[2022-06-17 00:07] LABS: Pneumococcal Antigen Urine Not Detected (Not Detected)
[2022-06-18 21:45] LABS: Legionella pneumophila Ag Ur Not Detected (Not Detected)
== END 2022-06-15 14:03 | disposition home or self-care (01) | DRG 194 ==
LOC: ANHED 22:01 → ANH2MED 06-13 01:09
PROVIDERS: Emergency Medicine; Nurse Practitioner Family; Admitting Provider Internal Medicine; Emergency Provider Emergency Medicine; PCP Internal Medicine; Visit Provider Nurse Practitioner Family
DX: I11.0 Hypertensive heart disease with heart failure (principal); I50.43 Acute on chronic combined systolic (congestive) and diastolic (congestive) heart failure; J18.9 Pneumonia, unspecified organism; E11.42 Type 2 diabetes mellitus with diabetic polyneuropathy; G47.33 Obstructive sleep apnea (adult) (pediatric); Z20.822 Contact with and (suspected) exposure to COVID-19; I24.8 Other forms of acute ischemic heart disease; D72.829 Elevated white blood cell count, unspecified; Z86.19 Personal history of other infectious and parasitic diseases; M19.90 Unspecified osteoarthritis, unspecified site; R79.89 Other specified abnormal findings of blood chemistry; Z91.81 History of falling
CPT/HCPCS: 36415; 71045; 71046; 80048; 80053; 82948; 83735; 83880; 84484; 85025; 85610; 85730; 87449; 87899; 93005; 94618; 94667; 96365; 96367; 96372; 96374; 96375; 96376; 99285; A9270; C9803; G0378; G0379; J0456; J0696; J1650; J1940; U0003; U0005

== ENCOUNTER 2022-11-22 10:58 | Inpatient (IN) | payer OTHER, SELFPAY ==
[2022-11-22] VITALS (7 sets, daily range): BP systolic 103–152; BP diastolic 91–110; PULSE 67–105; RESP 16–18; TEMP 36.6; O2SAT 96–98; BMI 33.3
--- NOTE | ~2022-11-22 | CT_ITS ---
EXAMINATION: CT brain wo con DATE: 11/22/2022 12:32 INDICATION: Dizziness TECHNIQUE: Computed tomography (CT) of the head was performed without intravenous contrast. Sagittal and coronal reconstructions were performed. The mA was adjusted according to patient size. Iterative reconstruction technique was employed. The dose-length product was 605.33 mGy-cm. COMPARISON: head CT dated 11/16/21 FINDINGS: No acute intracranial hemorrhage, acute infarction or abnormal extra axial fluid collection. There is mild scattered white matter hypoattenuation consistent with chronic small vessel ischemic disease. Ventricles are normal and symmetric. No mass/mass effect. The orbits, paranasal sinuses and mastoid a ir cells are normal. IMPRESSION: 1. No acute intracranial process. 2. Mild scattered white matter hypoattenuation consistent with chronic small vessel ischemic disease. Reviewed, dictated and finalized at location A. BRATION ENGINEER IMPRESSION: 1. No acute intracranial process. 2. Mild scattered white matter hypoattenuation consistent with chronic small ve ssel ischemic disease.
--- NOTE | ~2022-11-22 | XR_ITS ---
EXAMINATION: XR chest 2V Exam Date/Time: 11/22/2022 11:40 MATCHBOOK ASSEMBLER HISTORY: SOB DIZZY Comparison: 06/14/2022. RESULT: Lines, tubes, and devices: None. Lungs and pleura: Unchanged reticular opacities and mild cuffing. Cardiomediastinal silhouette: Stable. Other: No acute osseous or upper abdominal finding. IMPRESSION: Pulmonary opacities may represent bronchiolitis, as can be seen with atypical infection, asthma, aspi ration, and small airways disease. Reviewed, dictated and finalized at location K. HBOOK ASSEMBLER IMPRESSION: Pulmonary opacities may represent bronchiolitis, as can be seen with atypical i nfection, asthma, aspiration, and small airways disease.
--- NOTE | 2022-11-22 11:00 | ECG_ITS ---
Measurements Intervals [place] Rate: 103 P: 51 ND: 172 QRS: -44 QRSD: 112 T: 99 QT: 378 QTc: 496 Interpretive Statements SINUS TACHYCARDIA POSSIBLE RIGHT ATRIAL ENLARGEMENT [0.25mV P WAVE] MARKED LEFT AXIS DEVIATION [QRS AXIS < -30] LEFT VENTRICULAR HYPERTROPHY AND ST-T CHANGE [VOLTAGE CRITERIA PLUS ST/T ABNORMALITY] COMPARED TO ECG 06/12/2022 19:48:19 SINUS TACHYCARDIA NOW PRESENT LEFT VENTRICULAR HYPERTROPHY NOW PRESENT Electronically Signed On 11-22-2022 15:03:11 MOLD LAMINATOR by Gregor Graham M.D.
[2022-11-22 11:44] LABS: Basophils Absolute Auto 0.1 K/mm3 (0.0-0.1); Basophils Percent Auto 0.8 % (0.2-1.2); Eosinophils Absolute Auto 0.2 K/mm3 (0-0.3); Eosinophils Percent Auto 1.9 % (0-4.4); Hematocrit 48.5 % (42.0-52.0); Hemoglobin 16.5 g/dL (14.0-18.0); Immature Granulocyte Absolute 0.04 K/mm3 (0.00-0.031); Immature Granulocyte Percent A 0.3 % (0-0.5); Lymphocytes Absolute Auto 2.39 K/mm3 (0.9-3.2); Lymphocytes Percent Auto 19.4 % (18.3-44.2); Mean Corpuscular Hemoglobin 32.5 pg (26-34); Mean Corpuscular Volume 95.5 fl (80-100); Monocytes Absolute Auto 1.8 K/mm3 (0.1-0.6); Monocytes Percent Auto 14.4 % (2.6-8.5); Neutrophils Absolute Auto 7.8 K/mm3 (1.3-6.7); Neutrophils Percent Auto 63.2 % (45.5-73.1); Platelet Count Result 241 k/mm3 (150-375); Red Blood Count 5.08 M/mm3 (4.6-6.20); Red Cell Distribution Width 12.7 % (11.5-14.5); White Blood Count 12.4 K/mm3 (4.5-10.0)
[2022-11-22 11:56] LABS: Alanine Aminotransferase 40 U/L (6-50); Albumin Level 4.5 g/dL (3.5-5.1); Alkaline Phosphatase 73 U/L (38-126); Anion Gap 7 mmol/L (8-16); Aspartate Amino Transferase 41 U/L (17-59); Bilirubin,Total 1.3 mg/dL (0.2-1.3); Blood Urea Nitrogen 18 mg/dL (9-20); Calcium 8.8 mg/dL (8.4-10.2); Carbon Dioxide 26 mmol/L (22-30); Chloride 103 mmol/L (98-107); Estimated CRCL calculation 78 ml/min; Estimated Glomerular Filt Rate > 60; Glucose 141 mg/dL (65-110); Sodium 136 mmol/L (137-145)
--- NOTE | 2022-11-22 12:01 | ED.SOB ---
HPI - SOB/Dyspnea General Chief Complaint: Shortness of Breath/Dyspnea <Naya Maurer PA-C - Last Filed: 11/22/22 18:03> Stated Complaint: SOB <BELLO Denson Last Filed: 11/22/22 18:03> Time Seen by Provider: 11/22/22 11:23 <BELLO Denson Last Filed: 11/22/22 18:03> Source: patient <BELLO Denson Last Filed: 11/22/22 18:03> Mode of arrival: ambulatory <BELLO Denson Last Filed: 11/22/22 18:03> Limitations: no limitations <BELLO Denson Last Filed: 11/22/22 18:03> History of Present Illness HPI Narrative: This is a 57 year old male that presents to the ER for shortness of breath. Ongoing over the last couple of days. Reports associated dry cough. Also reports intermittent room spinning dizziness. Worse with certain head positions. Reports increasing anxiety and panic attacks. Denies fever, chest pain, numbness, weakness, or lower extremity edema. <BELLO Denson Last Filed: 11/22/22 18:03> Related Data Home Medications: Home Medications Medication Instructions Recorded Confirmed alprazolam 2 mg tablet (Xanax) 2 mg PO DAILY 05/08/22 11/22/22 furosemide 40 mg tablet (Lasix) 40 mg PO QAM 11/22/22 11/22/22 metoprolol succinate 100 mg 100 mg PO QAM 11/22/22 11/22/22 tablet,extended release 24 hr (Toprol XL) <BELLO Denson Last Filed: 11/22/22 18:03> Allergies/Adverse Reactions: Allergies Allergy/AdvReac Type Severity Reaction Status Date / Time nitroglycerin AdvReac Hypotension Verified 11/22/22 10:58 <BELLO Denson Last Filed: 11/22/22 18:03> Review of Systems Review of Systems: CONSTITUTIONAL: Denies fever EYES: Denies visual changes CARDIOVASCULAR: Denies chest pain, or edema. RESPIRATORY: Reports cough and dyspnea. GASTROINTESTINAL: Denies nausea, vomiting NEUROLOGIC: Denies headache, numbness, or weakness. PSYCHIATRIC: Reports anxiety <Naya aMurer PA-C - Last Filed: 11/22/22 18:03> All systems reviewed & are unremarkable except as noted in HPI and below <Naya Maurer PA-C - Last Filed: 11/22/22 18:03> [facility] Past Medical History Medical History: Medical History Anxiety Arthritis Combined systolic and diastolic congestive heart failure Echocardiogram 12/2021: Severely reduced left ventricular systolic function 25-30%, grade 2 diastolic dysfunction, mild pulmonary hypertension, moderate biatrial enlargement, mild aortic valve regurgitation, [id number] mitral valve regurgitation Diabetic peripheral neuropathy Diet-controlled diabetes mellitus Essential hypertension Hepatitis C Migraine Nonischemic cardiomyopathy Obstructive sleep apnea Needs repeat sleep study Pulmonary hypertension <Naya Maurer PA-C - Last Filed: 11/22/22 18:03> Surgical History Surgical History: Surgical History History of cardiac catheterization Performed in [place] approximately July 2019 and was normal per patient report. Status post right rotator cuff repair (01/2021) <Naya Maurer PA-C - Last Filed: 11/22/22 18:03> Family History Family History: Family History Mother Lung cancer Hypertension Emphysema lung Father Hypertension Sibling Acute myocardial infarction Hypertension Sibling Hypertension Sibling Hypertension Sibling Hypertension Sibling Hypertension <Naya Maurer PA-C - Last Filed: 11/22/22 18:03> Social History Social History: Social History (Updated 11/22/22 @ 20:28 by Misty Greenberg NP) Social History: Patient is from [place] but moved to the area in August 2019 after he and his . They have 3 grown children. He just got his own apartment February 2022 at the [facility] in [place]. He works for [employer]
[2022-11-22] MEDS: MECLIZINE HCL 25 MG TABLET PO (12:12)
[2022-11-22] MEDS: ONDANSETRON INJ 4 MG/2 ML VIAL IV PUSH (12:12)
[2022-11-22 12:16] LABS: Influenza A QL RT-PCR Negative (Negative); Influenza B QL RT-PCR Negative (Negative); SARS-CoV-2 RNA PCR Negative
[2022-11-22 12:38] LABS: NT Pro B Type Natriuretic Pept 7790 pg/mL (19.9-100)
--- NOTE | 2022-11-22 16:23 | PM.IMHP ---
H&P: HPI History of Present Illness Date/Time: 11/22/22 16:23 Chief Complaint: Shortness of breath Narrative: This is a 57-year-old male patient has a history of congestive heart failure. The patient has been complaining of shortness of breath over the last couple days. The patient comes to the emergency room with complaints of shortness of breath and a dry cough. The patient also complains of some dizziness. Patient stated that he is having some dizziness with positional changes. He has increased anxiety and panic attacks. The patient denies any fever chills or any chest pain. Or any lower extremity edema. The patient is currently on room air. The patient stated that he does take all of his routine medications as prescribed. Patient's white count is 12.4. His BNP 7790. Influenza A/B and COVID are all negative. Chest x-ray was read as pulmonary opacities may represent bronchiolitis, as can be seen with atypical infection asthma aspiration as small airways disease. Head CT was performed due to the dizziness. He was read as no acute intracranial process. Mild scattered white matter hypoattenuation consistent with chronic small vessel ischemic disease. The patient was given Zofran, Antivert, Rocephin and azithromycin in the emergency room. The patient is being admitted to observation status on the date of service of 11/22/2022 Review of Systems Review of Systems: See HPI All systems reviewed & are unremarkable except as noted in HPI and below Constitutional: Constitutional: Reports as per HPI and Reports no additional constitutional complaints Eyes: Eyes: Reports as per HPI and Reports no additional eye complaints ENT: Reports system reviewed and no additional complaints, except as documented and Reports Normal hearing present Cardiovascular: Cardiovascular: Reports no additional cardiovascular complaints Respiratory: Respiratory: Reports no additional respiratory complaints and Reports no additional respiratory complaints Gastrointestinal: Gastrointestinal: Reports as per HPI and Reports no additional gastrointestinal complaints Musculoskeletal: Musculoskeletal: Reports no additional musculoskeletal complaints Integumentary/Breasts: Skin/Breast: Reports system reviewed and no additional complaints, except as docu and Reports as per HPI Neurologic: Reports system reviewed and no additional complaints, except as documented, Reports as per HPI and Reports Normal hearing present Psychiatric: Psychiatric: Reports no additional psychiatric complaints and Reports as per HPI Endocrine: Endocrine: Reports no additional endocrine complaints Hematologic/Lymphatic: Hematologic/Lymphatic: Reports no additional hematologic/lymphatic complaints Allergic/Immunologic: Allergic/Immunologic: Reports no additional allergic/immunologic complaints [facility] Past Medical History Medical History Anxiety Arthritis Combined systolic and diastolic congestive heart failure Echocardiogram 12/2021: Severely reduced left ventricular systolic function 25-30%, grade 2 diastolic dysfunction, mild pulmonary hypertension, moderate biatrial enlargement, mild aortic valve regurgitation, [id number] mitral valve regurgitation Diabetic peripheral neuropathy Diet-controlled diabetes mellitus Essential hypertension Hepatitis C Migraine Nonischemic cardiomyopathy Obstructive sleep apnea Needs repeat sleep study Pulmonary hypertension Surgical History Surgical History History of cardiac catheterization Performed in [place] approximately July 2019 and was normal per patient report. Status post right rotator cuff repair (01/2021) Family History Family History Mother Lung cancer Hypertension Emphysema lung Father Hypertension Sibling Acute myocardial infarction Hypertension S
--- NOTE | 2022-11-22 18:24 | PC.NURSE ---
called for report. advised that room is not ready yet. states they will call when room is clean. pedicurist made aware.
--- NOTE | 2022-11-22 20:17 | ADMGEN ---
This patient, Hayes Meza, was admitted to Medical Room 345-01. Patient/family oriented to hospital policies and general routines including ID bracelet, bed and alarms, visiting hours, pain management, procedures, bathroom and other care routines, personal items, smoking policy, room service/diet, and visiting hours. Information on how to activate the Rapid Response Team has been discussed. Patient/Family are encouraged to report perceived risks to care and to ask questions if they do not understand what they are told or what they should do.
[2022-11-22 21:01] LABS: Glucose Point of Care 121 mg/dl (65-105)
[2022-11-22] MEDS: SACUBITRIL/VALSARTAN 49-51 MG TABLET 1 TABLET PO (21:19)
[2022-11-22] MEDS: MECLIZINE HCL 6.25 MG TABLET PO (21:19)
[2022-11-22] MEDS: ALPRAZolam (*CRX) 0.5 MG TABLET 2 MG PO (21:19)
[2022-11-22] MEDS: GABAPENTIN 300 MG CAPSULE PO (21:19)
[2022-11-22] MEDS: FLUTICASONE PROPIONATE 0.05% NA SPR 16 GM BTL (*BKC) 1 SPRAY NASAL (21:20)
[2022-11-23] VITALS (10 sets, daily range): BP systolic 86–102; BP diastolic 60–68; PULSE 75–102; RESP 18–20; TEMP 36.4–36.7; O2SAT 95–96
--- NOTE | 2022-11-23 | ECHO_ITS ---
Patient Info Name: Hayes Meza Age: 57 years : 1965 Gender: Male Ht: 68 in Wt: 219 lbs BSA: 2.22 m2 HR: 82 bpm BP: 140 / 95 mmHg Heart Rhythm: Sinus Rhythm Technical Quality: Fair Exam Date: 11/23/2022 10:19 AM Exam Location: [facility] Pulmonary Exam Room: 345 Patient Status: Inpatient Admit Date: 11/22/2022 Staff Ordering Physician: Misty Greenberg NP Prick Stitcher: Marifer French RDCS Attending Provider: Vincent Domínguez MD Referring Physician: Yari LAMAS; Exam Type: CA echo dop color flow w con Study Info Indications - CHF Complete two-dimensional, color flow and Doppler transthoracic echocardiogram is performed. Strain analysis performed. Contrast/Agitated Saline Contrast/Ag. Saline: Definity Amount: 3.00 ml Administered By: Marifer French [facility] Existing IV Access: Yes IV Access Condition: patent with no signs of infiltration Summary 1. Complete two-dimensional, color flow and Doppler transthoracic echocardiogram is performed. 2. Left ventricular systolic function is moderate to severely reduced, estimated at 30-35%. 3. Strain analysis performed. 4. Left ventricular chamber dimension is moderately enlarged. 5. There is mildly increased left ventricular wall thickness. 6. The left ventricular diastolic function is grade I diastolic dysfunction. 7. Global longitudinal strain is abnormal at -8 %. 8. Left atrial chamber dimension is mildly enlarged. 9. There is mild mitral valve regurgitation. 10. There is mild tricuspid valve regurgitation. 11. Mild pulmonary hypertension, estimated pulmonary arterial systolic pressure is 38 mmHg. Left Ventricle Left ventricular systolic function is moderate to severely reduced, estimated at 30-35%. Left ventricular chamber dimension is moderately enlarged. There is mildly increased left ventricular wall thickness. The left ventricular diastolic function is grade I diastolic dysfunction. Global longitudinal strain is abnormal at -8 %. Right Ventricle Right ventricular chamber dimension is normal. Right ventricular systolic function is normal. Left Atria Left atrial chamber dimension is mildly enlarged. Right Atria Right atrial chamber dimension is normal. Atrial Septum Intact interatrial septum visualized by color flow imaging. Aortic Valve The aortic valve is trileaflet. There is mild aortic valve sclerosis. There is no aortic valve stenosis. There is trace aortic valve regurgitation. Pulmonic Valve The pulmonic valve is normal. There is no pulmonic valve stenosis. There is trace pulmonic regurgitation. Mitral Valve The mitral valve has normal leaflets. There is no mitral valve stenosis. There is mild mitral valve regurgitation. Tricuspid Valve The tricuspid valve leaflets are normal. There is no significant tricuspid valve stenosis. There is mild tricuspid valve regurgitation. Mild pulmonary hypertension, estimated pulmonary arterial systolic pressure is 38 mmHg. Pericardium/Pleural The pericardium appears normal. There is no pericardial effusion. Aorta The aortic root size at the sinus of Valsalva is normal. Left Ventricular Outflow Tract Name Value Normal LVOT 2D
[2022-11-23] MEDS: ACETAMINOPHEN 325 MG TABLET 650 MG PO (03:00)
[2022-11-23 05:40] LABS: Basophils Absolute Auto 0.1 K/mm3 (0.0-0.1); Basophils Percent Auto 0.7 % (0.2-1.2); Eosinophils Absolute Auto 0.3 K/mm3 (0-0.3); Eosinophils Percent Auto 2.9 % (0-4.4); Hematocrit 43.3 % (42.0-52.0); Hemoglobin 14.4 g/dL (14.0-18.0); Immature Granulocyte Absolute 0.03 K/mm3 (0.00-0.031); Immature Granulocyte Percent A 0.3 % (0-0.5); Lymphocytes Absolute Auto 2.65 K/mm3 (0.9-3.2); Lymphocytes Percent Auto 24.7 % (18.3-44.2); Mean Corpuscular HGB Conc 33.3 g/dl (32-36); Mean Corpuscular Hemoglobin 31.8 pg (26-34); Mean Corpuscular Volume 95.6 fl (80-100); Monocytes Absolute Auto 1.6 K/mm3 (0.1-0.6); Monocytes Percent Auto 15.2 % (2.6-8.5); Neutrophils Absolute Auto 6.1 K/mm3 (1.3-6.7); Neutrophils Percent Auto 56.2 % (45.5-73.1); Platelet Count Result 282 k/mm3 (150-375); Red Blood Count 4.53 M/mm3 (4.6-6.20); Red Cell Distribution Width 12.4 % (11.5-14.5); White Blood Count 10.8 K/mm3 (4.5-10.0)
[2022-11-23 05:53] LABS: Alanine Aminotransferase 32 U/L (6-50); Albumin Level 3.6 g/dL (3.5-5.1); Alkaline Phosphatase 56 U/L (38-126); Anion Gap 7 mmol/L (8-16); Aspartate Amino Transferase 28 U/L (17-59); Bilirubin,Total 0.7 mg/dL (0.2-1.3); Blood Urea Nitrogen 20 mg/dL (9-20); Calcium 8.1 mg/dL (8.4-10.2); Carbon Dioxide 25 mmol/L (22-30); Chloride 107 mmol/L (98-107); Estimated CRCL calculation 81 ml/min; Estimated Glomerular Filt Rate > 60; Glucose 122 mg/dL (65-110); Magnesium 2.1 mg/dL (1.6-2.3); Potassium 3.8 mmol/L (3.4-5.0); Sodium 139 mmol/L (137-145)
[2022-11-23 08:56] LABS: Glucose Point of Care 127 mg/dl (65-105)
[2022-11-23] MEDS: SACUBITRIL/VALSARTAN 49-51 MG TABLET 1 TABLET PO ×2 (09:46→20:04)
[2022-11-23] MEDS: GABAPENTIN 300 MG CAPSULE PO ×3 (09:46→17:22)
[2022-11-23] MEDS: FLUTICASONE PROPIONATE 0.05% NA SPR 16 GM BTL (*BKC) 1 SPRAY NASAL ×2 (09:47→20:04)
[2022-11-23] MEDS: hydroCHLOROthiazide 25 MG TABLET PO (09:47)
[2022-11-23] MEDS: MECLIZINE HCL 6.25 MG TABLET PO ×3 (09:47→17:22)
[2022-11-23] MEDS: FUROSEMIDE 40 MG TABLET PO (09:47)
[2022-11-23] MEDS: ENOXAPARIN 40 MG/0.4 ML SYRINGE SUB-Q (09:47)
[2022-11-23] MEDS: EMPAGLIFLOZIN 12.5 MG TABLET PO (09:47)
[2022-11-23] MEDS: POTASSIUM CHLORIDE 20 MEQ TABLET.ER PO (09:47)
[2022-11-23] MEDS: METOPROLOL SUCCINATE EXT REL 100 MG TABCR PO (09:47)
[2022-11-23] MEDS: PERFLUTREN LIPID MICROSPHERES 1.5 ML VIAL DILUTED TO 10 ML TOTAL VOLUME IV PUSH (11:00)
[2022-11-23 12:17] LABS: Glucose Point of Care 121 mg/dl (65-105)
[2022-11-23 17:03] LABS: Glucose Point of Care 132 mg/dl (65-105)
--- NOTE | 2022-11-23 17:10 | PM.IMPN ---
Progress Note: A&P Assessment and Plan (1) Pneumonia: Qualifiers: Laterality: bilateral Lung location: lower lobe of lung Pneumonia type: due to unspecified organism Qualified Code(s): J18.9 - Pneumonia, unspecified organism Code(s): J18.9 - Pneumonia, unspecified organism Status: Acute Assessment and Plan: -continue with azithromycin and rocephin -sputum and blood cultures are pending. -tailor antibiotics to culture results 11/23/2021 interval history: 57-year-old male with history of severe cardiomyopathy with ejection fraction of 25-30%, presented with shortness of breath with elevated BNP 7790, patient being diuresed with Lasix p.o. will switch Lasix IV, will consult food processing chemist for further recommendation, and complaints of dizziness CT scan of the head is normal for any acute injury, chest x-ray is also concerning for pneumonia, started the patient ceftriaxone and azithromycin, will have a PT OT evaluate the further recommendation to follow. (2) Diabetic peripheral neuropathy: Code(s): E11.42 - Type 2 diabetes mellitus with diabetic polyneuropathy Status: Acute Assessment and Plan: -continue with gabapentin (3) Heart failure, chronic, with acute decompensation: Code(s): I50.9 - Heart failure, unspecified Status: Acute Assessment and Plan: -continue with Entresto -could with Lasix -continue with hydrochlorothiazide -continue with metoprolol -continue Lasix -continue Jardiance -echo from 01/18/2022 shows an estimated EF of 25-30%. -repeat echo (4) Anxiety: Code(s): F41.9 - Anxiety disorder, unspecified Status: Acute Assessment and Plan: Continue with Xanax (5) Hypertension: Qualifiers: Hypertension type: essential hypertension Qualified Code(s): I10 - Essential (primary) hypertension Code(s): I10 - Essential (primary) hypertension Status: Chronic Assessment and Plan: -continue with Entresto for the CHF -continue with hydrochlorothiazide -continue with metoprolol (6) Diet-controlled diabetes mellitus: Code(s): E11.9 - Type 2 diabetes mellitus without complications Status: Chronic Assessment and Plan: -Accu-Cheks AC and HS with sliding scale insulin and hypoglycemic protocol. -check A1c. -I believe that the patient is on Jardiance for his heart but this could also be for the diabetes as well. Subjective Date/time seen: 11/23/22 17:10 Shortness of breath HPI-Narrative: This is a 57-year-old male patient has a history of congestive heart failure.? The patient has been complaining of shortness of breath over the last couple days.? The patient comes to the emergency room with complaints of shortness of breath and a dry cough.? The patient also complains of some dizziness.? Patient stated that he is having some dizziness with positional changes.? He has increased anxiety and panic attacks.? The patient denies any fever chills or any chest pain.? Or any lower extremity edema.? The patient is currently on room air.? The patient stated that he does take all of his routine medications as prescribed.? Patient's white count is 12.4.? His BNP 7790.? Influenza A/B and COVID are all negative.? Chest x-ray was read as pulmonary opacities may represent bronchiolitis, as can be seen with atypical infection asthma aspiration as small airways disease.? Head CT was performed due to the dizziness.? He was read as no acute intracranial process.? Mild scattered white matter hypoattenuation consistent with chronic small vessel ischemic disease.? The patient was given Zofran, Antivert, Rocephin and azithromycin in the emergency room. 11/23/2021 interval history: 57-year-old male with history of severe cardiomyopathy with ejection fraction of 25-30%, presented with shortness of breath with elevated BNP 7790, patient being diuresed with Lasix p.o. will switch Lasix IV, will consult food processing chemist for further
[2022-11-23] MEDS: ALPRAZolam (*CRX) 0.5 MG TABLET 2 MG PO (20:07)
[2022-11-23 21:00] LABS: Glucose Point of Care 134 mg/dl (65-105)
[2022-11-24] VITALS (10 sets, daily range): BP systolic 100–112; BP diastolic 69–76; PULSE 73–88; RESP 18–20; TEMP 36.6–36.7; O2SAT 93–95
[2022-11-24 05:52] LABS: Hematocrit 48.1 % (42.0-52.0); Hemoglobin 15.8 g/dL (14.0-18.0); Mean Corpuscular HGB Conc 32.8 g/dl (32-36); Mean Corpuscular Hemoglobin 31.8 pg (26-34); Mean Corpuscular Volume 96.8 fl (80-100); Mean Platelet Volume 10.3 fl (7.4-10.4); Platelet Count Result 333 k/mm3 (150-375); Red Blood Count 4.97 M/mm3 (4.6-6.20); Red Cell Distribution Width 12.8 % (11.5-14.5); White Blood Count 12.8 K/mm3 (4.5-10.0)
[2022-11-24 06:01] LABS: Magnesium 2.2 mg/dL (1.6-2.3)
[2022-11-24] MEDS: GABAPENTIN 300 MG CAPSULE PO ×3 (08:25→16:40)
[2022-11-24] MEDS: METOPROLOL SUCCINATE EXT REL 100 MG TABCR PO (08:25)
[2022-11-24] MEDS: FUROSEMIDE 40 MG TABLET PO (08:25)
[2022-11-24] MEDS: SACUBITRIL/VALSARTAN 49-51 MG TABLET 1 TABLET PO ×2 (08:25→21:24)
[2022-11-24] MEDS: POTASSIUM CHLORIDE 20 MEQ TABLET.ER PO (08:25)
[2022-11-24] MEDS: EMPAGLIFLOZIN 12.5 MG TABLET PO (08:25)
[2022-11-24] MEDS: ENOXAPARIN 40 MG/0.4 ML SYRINGE SUB-Q (08:25)
[2022-11-24] MEDS: hydroCHLOROthiazide 25 MG TABLET PO (08:25)
[2022-11-24] MEDS: FLUTICASONE PROPIONATE 0.05% NA SPR 16 GM BTL (*BKC) 1 SPRAY NASAL ×2 (08:26→21:24)
[2022-11-24] MEDS: MECLIZINE HCL 6.25 MG TABLET PO ×3 (08:26→16:40)
[2022-11-24 08:34] LABS: Glucose Point of Care 115 mg/dl (65-105)
--- NOTE | 2022-11-24 09:38 | PM.CNCAR ---
Assessment and Plan Assessment and plan (1) Shortness of breath: Code(s): R06.02 - Shortness of breath Status: Acute (2) Acute on chronic systolic and diastolic heart failure, NYHA class 2: Code(s): I50.43 - Acute on chronic combined systolic (congestive) and diastolic (congestive) heart failure Status: Acute Plan this is a 57-year-old man known to have a dilated nonischemic cardiomyopathy presenting for another episode of shortness of breath. He had 2 admissions with dyspnea last year 1st in April and then in the fall at another hospital. He has shortness of breath and some pulmonary rales but no right-sided congestion at this time. I would recommend shifting him from hydrochlorothiazide to furosemide for his diuretic. I will stop the thiazide diuretic at this time. It seems like his spironolactone was not tolerated because of hyperkalemia which is unfortunate. Bike expectation is he should be ready for discharge in the next 24-48 hours at the after his pulmonary rales are cleared. We will arrange for timely follow-up in the office with Dr. Conner. The patient has not been seen in our office for follow-up for about 15 months prior to this admission. Obviously that needs to change if he is going to avoid these frequent hospitalization Lucio Trujillo MD [facility] History of Present Illness History of Present Illness Consult date/time: 11/24/22 09:38 Consult reason: congestive heart failure Reason For Visit: pneumonia Narrative: This is a 57-year-old man I am seeing at the request of the hospitalist because of dilated cardiomyopathy. The patient is known to several physicians in my practice but I do not believe I have ever seen him in the past. He came into the hospital about 48 hours ago with some shortness of breath. He reports that when he is in his usual state of compensation he is able to perform light daily activities without much dyspnea he is not able to perform moderate her vigorous exertion without shortness of breath he also in the last couple weeks has noticed some positional dyspnea and several episodes of PND. He does not have any lower extremity edema. He has been admitted to the hospital and treated with some furosemide. He says he is feeling somewhat better but still shortness of breath his noticeable with walking about his room and going to the restroom etc.. He is known to have a dilated nonischemic cardiomyopathy which he states was 1st diagnosed in 2004 when he was living in [place]. The patient was found at that time to have no coronary disease was managed by nut sheller machine operator down there and then went through a very difficult divorce and moved back to this area where he originated. For a period of time he was not in his medications and presented here to this hospital than in 2019 with decompensated heart failure. He was placed back on medical therapy and has done well. He has been seen on several occasions in this hospital with shortness of breath his last admission was in April of 2022. At that time he was discharged on a regimen consisting of metoprolol Entresto and spironolactone. According to the records his medications at admission are the same with the difference being he is now receiving hydrochlorothiazide instead of spironolactone. He states that was changed about 3 months ago when he was hospitalized in [facility] with some shortness of breath. He believes he was found to have elevated potassium levels. 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 Review of Systems Constitutional: Constitutional: Reports lethargy Eyes: Eyes: Reports no additional eye complaints ENT: Reports system reviewed and no additional complaints, except as documented Cardiovascular: Cardiovascular: R
[2022-11-24 10:49] LABS: Anion Gap 6 mmol/L (8-16); Blood Urea Nitrogen 20 mg/dL (9-20); Calcium 8.8 mg/dL (8.4-10.2); Carbon Dioxide 30 mmol/L (22-30); Chloride 99 mmol/L (98-107); Estimated CRCL calculation 59 ml/min; Estimated Glomerular Filt Rate 52; Glucose 122 mg/dL (65-110); Potassium 4.1 mmol/L (3.4-5.0); Sodium 135 mmol/L (137-145)
[2022-11-24 12:22] LABS: Glucose Point of Care 128 mg/dl (65-105)
--- NOTE | 2022-11-24 15:47 | PM.IMPN ---
Progress Note: A&P Assessment and Plan (1) Pneumonia: Qualifiers: Laterality: bilateral Lung location: lower lobe of lung Pneumonia type: due to unspecified organism Qualified Code(s): J18.9 - Pneumonia, unspecified organism Code(s): J18.9 - Pneumonia, unspecified organism Status: Acute Assessment and Plan: -continue with azithromycin and rocephin -sputum and blood cultures are pending. -tailor antibiotics to culture results 11/24/2021 interval history: 57-year-old male with history of severe dilated nonschemic cardiomyopathy with ejection fraction of 25-30%, presented with shortness of breath with elevated BNP 7790, patient being diuresed with Lasix p.o. seen by his multiplex operator recommneded to stop hydrochlorothiazide and recommended to monitor patient 1 to 2 more day, and further recommendation, and complaints of dizziness CT scan of the head is normal for any acute injury, chest x-ray is also concerning for pneumonia, most likely community-acquired pneumonia, started the patient ceftriaxone and azithromycin, will have a PT OT evaluate the further recommendation to follow. (2) Diabetic peripheral neuropathy: Code(s): E11.42 - Type 2 diabetes mellitus with diabetic polyneuropathy Status: Acute Assessment and Plan: -continue with gabapentin (3) Heart failure, chronic, with acute decompensation: Code(s): I50.9 - Heart failure, unspecified Status: Acute Assessment and Plan: -continue with Entresto -could with Lasix -continue with hydrochlorothiazide -continue with metoprolol -continue Lasix -continue Jardiance -echo from 01/18/2022 shows an estimated EF of 25-30%. -repeat echo (4) Anxiety: Code(s): F41.9 - Anxiety disorder, unspecified Status: Acute Assessment and Plan: Continue with Xanax (5) Hypertension: Qualifiers: Hypertension type: essential hypertension Qualified Code(s): I10 - Essential (primary) hypertension Code(s): I10 - Essential (primary) hypertension Status: Chronic Assessment and Plan: -continue with Entresto for the CHF -continue with hydrochlorothiazide -continue with metoprolol (6) Diet-controlled diabetes mellitus: Code(s): E11.9 - Type 2 diabetes mellitus without complications Status: Chronic Assessment and Plan: -Accu-Cheks AC and HS with sliding scale insulin and hypoglycemic protocol. -check A1c. -I believe that the patient is on Jardiance for his heart but this could also be for the diabetes as well. Subjective Date/time seen: 11/24/22 15:47 11/24/2021 interval history: 57-year-old male with history of severe dilated nonschemic cardiomyopathy with ejection fraction of 25-30%, presented with shortness of breath with elevated BNP 7790, patient being diuresed with Lasix p.o. seen by his multiplex operator recommneded to stop hydrochlorothiazide and recommended to monitor patient 1 to 2 more day, and further recommendation, and complaints of dizziness CT scan of the head is normal for any acute injury, chest x-ray is also concerning for pneumonia, most likely community-acquired pneumonia, started the patient ceftriaxone and azithromycin, will have a PT OT evaluate the further recommendation to follow. Exam Narrative: moderately obese Patient is comfortable, NAD HEENT: eyes are clear and none icteric LUNGS: normal respiratory effort ABD: distended Lower extremities: no edema SKIN: nonjaundiced Neuro: grossly intact. Objective Data Vital Signs Vital Signs: Vital Signs - 24 hr 11/23/22 16:00 11/23/22 21:35 11/23/22 20:00 Temperature 98.0 F Pulse Rate 75 85 85 Respiratory Rate 20 20 Blood Pressure 86/67 L Pulse Oximetry 95 95 Oxygen Delivery Room Air 11/23/22 20:00 11/24/22 00:00 11/24/22 04:00 Temperature Pulse Rate 90 85 73 Respiratory Rate Blood Pressure Pulse Oximetry Oxygen Delivery 11/24/22
[2022-11-24 17:32] LABS: Glucose Point of Care 147 mg/dl (65-105)
[2022-11-24 19:48] LABS: Glucose Point of Care 153 mg/dl (65-105)
[2022-11-24] MEDS: ALPRAZolam (*CRX) 0.5 MG TABLET 2 MG PO (21:27)
[2022-11-25] VITALS (11 sets, daily range): BP systolic 102–172; BP diastolic 67–80; PULSE 61–87; RESP 18–22; TEMP 36.6–37.1; O2SAT 91–98
--- NOTE | 2022-11-25 03:52 | P.PNCROSS_ITS ---
Event Note Event Note Event Note: Nursing staff called to tell me the patient is having a headache 05/31 in [facility]. The patient is refusing Tylenol as he states that it does not help him at home. He states that he can have ibuprofen. The patient does have a little bit of pre renal azotemia likely due to diuresis. The prescription drug monitoring program was reviewed. The patient had been getting multiple prescription from narcotics from multiple providers until August of 2021 at which time they stop ped giving him the extra narcotics. At this time I will give the patient Nucynta 50 mg q.6 hours p.r.n. pain 7-10. At this is an opiate agonist and antagonist and will hopefully not provide the patient with as much risk for dependence or abuse.
[2022-11-25 07:01] LABS: Hematocrit 49.6 % (42.0-52.0); Hemoglobin 16.7 g/dL (14.0-18.0); Mean Corpuscular HGB Conc 33.7 g/dl (32-36); Mean Corpuscular Hemoglobin 32.4 pg (26-34); Mean Corpuscular Volume 96.1 fl (80-100); Mean Platelet Volume 10.2 fl (7.4-10.4); Platelet Count Result 316 k/mm3 (150-375); Red Blood Count 5.16 M/mm3 (4.6-6.20); Red Cell Distribution Width 12.7 % (11.5-14.5); White Blood Count 12.5 K/mm3 (4.5-10.0)
[2022-11-25 07:13] LABS: Anion Gap 7 mmol/L (8-16); Blood Urea Nitrogen 20 mg/dL (9-20); Calcium 8.6 mg/dL (8.4-10.2); Carbon Dioxide 28 mmol/L (22-30); Chloride 102 mmol/L (98-107); Estimated CRCL calculation 74 ml/min; Estimated Glomerular Filt Rate > 60; Glucose 126 mg/dL (65-110); Magnesium 2.2 mg/dL (1.6-2.3); Potassium 4.1 mmol/L (3.4-5.0); Sodium 137 mmol/L (137-145)
[2022-11-25 08:32] LABS: Glucose Point of Care 113 mg/dl (65-105)
--- NOTE | 2022-11-25 08:48 | PM.PNCARD ---
Progress Note: A&P Assessment and Plan (1) Shortness of breath: Code(s): R06.02 - Shortness of breath Status: Acute Assessment and Plan: Unchanged (2) Acute on chronic systolic and diastolic heart failure, NYHA class 2: Code(s): I50.43 - Acute on chronic combined systolic (congestive) and diastolic (congestive) heart failure Status: Acute Assessment and Plan: Continue current regimen will give him a dose of IV furosemide 40 mg IV x1 today. Subjective Date/time seen: 11/25/22 08:48 Interval history: 57-year-old admitted with shortness of breath Date of service 11/25/2022: Still feels short of breath. Also has a headache. No chest pain. Review of Systems Constitutional: Constitutional: Reports lethargy Eyes: Eyes: Reports no additional eye complaints ENT: Reports system reviewed and no additional complaints, except as documented Cardiovascular: Cardiovascular: Reports as per HPI and Reports dyspnea on exertion Respiratory: Respiratory: Reports dyspnea on exertion Gastrointestinal: Gastrointestinal: Reports no additional gastrointestinal complaints Integumentary/Breasts: Skin/Breast: Reports system reviewed and no additional complaints, except as docu Neurologic: Reports system reviewed and no additional complaints, except as documented Endocrine: Endocrine: Reports no additional endocrine complaints Hematologic/Lymphatic: Hematologic/Lymphatic: Reports no additional hematologic/lymphatic complaints Allergic/Immunologic: Allergic/Immunologic: Reports no additional allergic/immunologic complaints Exam Const: General: comfortable and no acute distress Other: pleasant healthy-appearing white male comfortable cooperative no distress HENMT: Mouth: Yes moist mucous membranes Eyes: Sclera: sclerae normal Neck: Neck: supple and no JVD Resp: Effort & Inspection: normal respiratory effort Auscultation: rales ( bibasilar rales are audible) Cardio: Rate: regular rate Rhythm: regular rhythm GI: Auscultation: normal bowel sounds Skin: General skin exam: normal color Neuro: Speech: normal speech Other: alert and oriented x3 normal cognitive function Extrem: Other: good pulses throughout no edema Objective Data Vital Signs Vital Signs: Vital Signs - 24 hr 11/24/22 12:00 11/24/22 14:00 11/24/22 16:00 Temperature 36.6 C Pulse Rate 88 85 82 Respiratory Rate 20 Blood Pressure 100/69 Pulse Oximetry 93 Oxygen Delivery 11/24/22 19:39 11/24/22 20:00 11/24/22 20:00 Temperature 36.6 C Pulse Rate 87 87 84 Respiratory Rate 20 20 Blood Pressure 112/71 Pulse Oximetry 95 95 Oxygen Delivery Room Air 11/25/22 00:00 11/25/22 04:00 11/25/22 04:56 Temperature 36.7 C Pulse Rate 87 87 85 Respiratory Rate 20 Blood Pressure 102/70 Pulse Oximetry 98 Oxygen Delivery Intake/Output Intake/Output: Intake & Output 11/22/22 11/23/22 11/24/22 11/25/22 23:59 23:59 23:59 23:59 Intake Total 300 3900 1820 Output Total 4 1900 Balance 300 3896 -80 Meds/Results Medications: Active Medications Generic Name Dose Route Start Last Admin Trade Name Freq PRN Reason Stop Dose Admin Acetaminophen 650 mg 11/23/22 02:55 11/23/22 03:00 Acetaminophen 325 Mg Tablet PO 650 mg Q4H PRN Administration Headache Albuterol 1 puff 11/22/22 20:26 Albuterol Sulfate (*Sp) Aerosol 1 Puff INHALATION QID PRN shortness of breath or wheezing Alprazolam 2 mg 11/22/22 21:00 11/24/22 21:27 Alprazolam (*Crx) 0.5 Mg Tablet PO 2 mg HS HAM Administration Dextrose 12.5 gm 11/22/22 20:41 Dextrose 50% 25 Gm/50 Ml Syringe IV PUSH PRN PRN Hypoglycemia Protocol Empagliflozin 12.5 mg 11/23/22 09:00 11/24/22 08:25 Empagliflozin 12.5 Mg Tablet PO 12.5 mg DAILY HAM Administration Enoxaparin Sodium 40 mg 11/23/22 09:00 11/24/22 08:25 Enoxaparin 40 Mg/0.4 Ml Syrin
[2022-11-25] MEDS: ENOXAPARIN 40 MG/0.4 ML SYRINGE SUB-Q (10:02)
[2022-11-25] MEDS: MECLIZINE HCL 6.25 MG TABLET PO ×3 (10:02→16:41)
[2022-11-25] MEDS: GABAPENTIN 300 MG CAPSULE PO ×3 (10:02→16:41)
[2022-11-25] MEDS: FLUTICASONE PROPIONATE 0.05% NA SPR 16 GM BTL (*BKC) 1 SPRAY NASAL ×2 (10:02→20:42)
[2022-11-25] MEDS: METOPROLOL SUCCINATE EXT REL 100 MG TABCR PO (10:03)
[2022-11-25] MEDS: FUROSEMIDE 40 MG TABLET PO (10:03)
[2022-11-25] MEDS: EMPAGLIFLOZIN 12.5 MG TABLET PO (10:03)
[2022-11-25] MEDS: POTASSIUM CHLORIDE 20 MEQ TABLET.ER PO (10:04)
[2022-11-25] MEDS: SACUBITRIL/VALSARTAN 49-51 MG TABLET 1 TABLET PO ×2 (10:04→20:42)
[2022-11-25] MEDS: HYDROcodone/acetaminophen (*CRX) 5-325 MG TABLET 1 TAB PO ×2 (10:09→20:50)
[2022-11-25] MEDS: FUROSEMIDE INJ 40 MG/4 ML VIAL IV PUSH (10:12)
[2022-11-25 12:14] LABS: Glucose Point of Care 146 mg/dl (65-105)
--- NOTE | 2022-11-25 12:52 | PM.IMPN ---
Progress Note: A&P Assessment and Plan (1) Pneumonia: Qualifiers: Laterality: bilateral Lung location: lower lobe of lung Pneumonia type: due to unspecified organism Qualified Code(s): J18.9 - Pneumonia, unspecified organism Code(s): J18.9 - Pneumonia, unspecified organism Status: Acute Assessment and Plan: -continue with azithromycin and rocephin -sputum and blood cultures are pending. -tailor antibiotics to culture results 11/25/2021 interval history: 57-year-old male with history of severe dilated nonschemic cardiomyopathy with ejection fraction of 25-30%, presented with shortness of breath with elevated BNP 7790, patient being diuresed with Lasix p.o. on 11/24 was seen by his tanker service attendant recommneded to stop hydrochlorothiazide and recommended to monitor patient 1 to 2 more day, and further recommendation, and patient continue to complaints of severe dizziness he is unable to walk to the bathroom from his bed, today tanker service attendant switch lasix ot IV, CT scan of the head is normal for any acute injury, chest x-ray is also concerning for pneumonia, most likely community-acquired pneumonia, started the patient ceftriaxone and azithromycin, will chest x-ray on Sunday, will have a PT OT evaluate the further recommendation to follow. (2) Diabetic peripheral neuropathy: Code(s): E11.42 - Type 2 diabetes mellitus with diabetic polyneuropathy Status: Acute Assessment and Plan: -continue with gabapentin (3) Heart failure, chronic, with acute decompensation: Code(s): I50.9 - Heart failure, unspecified Status: Acute Assessment and Plan: -continue with Entresto -could with Lasix -continue with hydrochlorothiazide -continue with metoprolol -continue Lasix -continue Jardiance -echo from 01/18/2022 shows an estimated EF of 25-30%. -repeat echo (4) Anxiety: Code(s): F41.9 - Anxiety disorder, unspecified Status: Acute Assessment and Plan: Continue with Xanax (5) Hypertension: Qualifiers: Hypertension type: essential hypertension Qualified Code(s): I10 - Essential (primary) hypertension Code(s): I10 - Essential (primary) hypertension Status: Chronic Assessment and Plan: -continue with Entresto for the CHF -continue with hydrochlorothiazide -continue with metoprolol (6) Diet-controlled diabetes mellitus: Code(s): E11.9 - Type 2 diabetes mellitus without complications Status: Chronic Assessment and Plan: -Accu-Cheks AC and HS with sliding scale insulin and hypoglycemic protocol. -check A1c. -I believe that the patient is on Jardiance for his heart but this could also be for the diabetes as well. Subjective Date/time seen: 11/25/22 12:52 11/25/2021 interval history: 57-year-old male with history of severe dilated nonschemic cardiomyopathy with ejection fraction of 25-30%, presented with shortness of breath with elevated BNP 7790, patient being diuresed with Lasix p.o. on 11/24 was seen by his tanker service attendant recommneded to stop hydrochlorothiazide and recommended to monitor patient 1 to 2 more day, and further recommendation, and patient continue to complaints of severe dizziness he is unable to walk to the bathroom from his bed, today tanker service attendant switch lasix ot IV, CT scan of the head is normal for any acute injury, chest x-ray is also concerning for pneumonia, most likely community-acquired pneumonia, started the patient ceftriaxone and azithromycin, will chest x-ray on Sunday, will have a PT OT evaluate the further recommendation to follow. Review of Systems Review of Systems: All systems reviewed & are unremarkable except as noted in HPI and below Exam Narrative: moderately obese Patient is comfortable, NAD HEENT: eyes are clear and none icteric LUNGS: normal respiratory effort ABD: distended Lower extremities: no edema SKIN: nonjaundiced Neuro: grossly intact. O
[2022-11-25 17:57] LABS: Glucose Point of Care 131 mg/dl (65-105)
[2022-11-25] MEDS: ALPRAZolam (*CRX) 0.5 MG TABLET 2 MG PO (20:51)
[2022-11-25 21:07] LABS: Glucose Point of Care 126 mg/dl (65-105)
[2022-11-26] VITALS: PULSE 74
[2022-11-26 04:00] VITALS: PULSE 82
[2022-11-26 05:22] VITALS: BP 103/68; PULSE 104; RESP 20; TEMP 36.6; O2SAT 96
[2022-11-26 06:41] LABS: Hematocrit 48.7 % (42.0-52.0); Hemoglobin 16.4 g/dL (14.0-18.0); Mean Corpuscular HGB Conc 33.7 g/dl (32-36); Mean Corpuscular Hemoglobin 32.1 pg (26-34); Mean Corpuscular Volume 95.3 fl (80-100); Mean Platelet Volume 9.7 fl (7.4-10.4); Platelet Count Result 296 k/mm3 (150-375); Red Blood Count 5.11 M/mm3 (4.6-6.20); Red Cell Distribution Width 12.8 % (11.5-14.5)
[2022-11-26 06:55] LABS: Anion Gap 7 mmol/L (8-16); Blood Urea Nitrogen 22 mg/dL (9-20); Calcium 8.6 mg/dL (8.4-10.2); Carbon Dioxide 28 mmol/L (22-30); Chloride 100 mmol/L (98-107); Estimated CRCL calculation 74 ml/min; Estimated Glomerular Filt Rate > 60; Glucose 115 mg/dL (65-110); Magnesium 2.2 mg/dL (1.6-2.3); Potassium 3.6 mmol/L (3.4-5.0); Sodium 135 mmol/L (137-145)
[2022-11-26 08:34] LABS: Glucose Point of Care 115 mg/dl (65-105)
[2022-11-26] MEDS: POTASSIUM CHLORIDE 20 MEQ PACKET (FOR LIQUID) 40 MEQ PO (08:48)
[2022-11-26 08:50] VITALS: PULSE 89; RESP 20; O2SAT 96
[2022-11-26] MEDS: FLUTICASONE PROPIONATE 0.05% NA SPR 16 GM BTL (*BKC) 1 SPRAY NASAL (08:50)
[2022-11-26] MEDS: ENOXAPARIN 40 MG/0.4 ML SYRINGE SUB-Q (08:50)
[2022-11-26] MEDS: POTASSIUM CHLORIDE 20 MEQ TABLET.ER PO (08:51)
[2022-11-26] MEDS: MECLIZINE HCL 6.25 MG TABLET PO (08:51)
[2022-11-26] MEDS: FUROSEMIDE 40 MG TABLET PO (08:51)
[2022-11-26] MEDS: EMPAGLIFLOZIN 12.5 MG TABLET PO (08:51)
[2022-11-26] MEDS: SACUBITRIL/VALSARTAN 49-51 MG TABLET 1 TABLET PO (08:51)
[2022-11-26 08:52] VITALS: PULSE 89
[2022-11-26] MEDS: METOPROLOL SUCCINATE EXT REL 100 MG TABCR PO (08:52)
[2022-11-26] MEDS: GABAPENTIN 300 MG CAPSULE PO (08:52)
--- NOTE | 2022-11-26 09:21 | PM.PNCARD ---
Progress Note: A&P Assessment and Plan (1) Shortness of breath: Code(s): R06.02 - Shortness of breath Status: Acute Assessment and Plan: Unchanged (2) Acute on chronic systolic and diastolic heart failure, NYHA class 2: Code(s): I50.43 - Acute on chronic combined systolic (congestive) and diastolic (congestive) heart failure Status: Acute Assessment and Plan: Appears euvolemic. Lungs are clear. No edema. No further IV furosemide. Continue oral furosemide 40 mg daily. Continue other home CHF regimen. Subjective Date/time seen: 11/26/22 09:21 Interval history: 57-year-old admitted with shortness of breath Date of service 11/25/2022: Still feels short of breath. Also has a headache. No chest pain. Date of service 11/26/2022: He still complains of shortness of breath but is able to walk around without significant dyspnea. He is conversant without shortness of breath. He has no chest pain. Review of Systems Constitutional: Constitutional: Reports lethargy Eyes: Eyes: Reports no additional eye complaints ENT: Reports system reviewed and no additional complaints, except as documented Cardiovascular: Cardiovascular: Reports as per HPI and Reports dyspnea on exertion Respiratory: Respiratory: Reports dyspnea on exertion Gastrointestinal: Gastrointestinal: Reports no additional gastrointestinal complaints Integumentary/Breasts: Skin/Breast: Reports system reviewed and no additional complaints, except as docu Neurologic: Reports system reviewed and no additional complaints, except as documented Endocrine: Endocrine: Reports no additional endocrine complaints Hematologic/Lymphatic: Hematologic/Lymphatic: Reports no additional hematologic/lymphatic complaints Allergic/Immunologic: Allergic/Immunologic: Reports no additional allergic/immunologic complaints Exam Const: General: comfortable and no acute distress Other: pleasant healthy-appearing white male comfortable cooperative no distress HENMT: Mouth: Yes moist mucous membranes Eyes: Sclera: sclerae normal Neck: Neck: supple and no JVD Other: thyroid is not palpable carotid pulses are unremarkable bilateral Resp: Effort & Inspection: normal respiratory effort Auscultation: clear to auscultation bilaterally Cardio: Rate: regular rate Rhythm: regular rhythm GI: Auscultation: normal bowel sounds Skin: General skin exam: normal color Neuro: Speech: normal speech Other: alert and oriented x3 normal cognitive function Extrem: Other: good pulses throughout no edema Objective Data Vital Signs Vital Signs: Vital Signs - 24 hr 11/25/22 10:03 11/25/22 13:37 11/25/22 10:00 Temperature Pulse Rate 82 82 Respiratory Rate 20 Blood Pressure Pulse Oximetry 95 95 Oxygen Delivery Room Air Room Air 11/25/22 14:41 11/25/22 14:00 11/25/22 12:00 Temperature 37.1 C Pulse Rate 77 73 Respiratory Rate 18 Blood Pressure 103/80 Pulse Oximetry 98 Oxygen Delivery Room Air 11/25/22 16:00 11/25/22 20:00 11/25/22 20:00 Temperature 36.6 C Pulse Rate 61 76 76 Respiratory Rate 22 H 22 H Blood Pressure 172/67 H Pulse Oximetry 91 91 Oxygen Delivery Room Air 11/25/22 20:00 11/26/22 00:00 11/26/22 04:00 Temperature Pulse Rate 72 74 82 Respiratory Rate Blood Pressure Pulse Oximetry Oxygen Delivery 11/26/22 05:22 11/26/22 08:41 11/26/22 08:52 Temperature 36.6 C Pulse Rate 104 H 89 Respiratory Rate 20 Blood Pressure 103/68 Pulse Oximetry 96 Oxygen Delivery Room Air Intake/Output Intake/Output: Intake & Output 11/23/22 11/24/22 11/25/22 11/26/22 23:59 23:59 23:59 23:59 Intake Total 3900 1820 1020 Output Total 4 1900 Balance 3896 -80 1020 Meds/Results Medications: Active Medications Generic Name Dose Route Start Last Admin Trade Name Freq PRN Reason Stop Dose Admin Acetaminophen 650 mg 11/23/22 02:55
--- NOTE | 2022-11-26 13:03 | PM.DS ---
DS: Admitting Diagnosis Discharge Date 11/26/2022 Admitting Diagnosis shortness of breath DS: Discharge Diagnosis Discharge Diagnosis (1) Pneumonia: Qualifiers: Laterality: bilateral Lung location: lower lobe of lung Pneumonia type: due to unspecified organism Qualified Code(s): J18.9 - Pneumonia, unspecified organism Code(s): J18.9 - Pneumonia, unspecified organism Status: Acute Assessment and Plan: -continue with azithromycin and rocephin -sputum and blood cultures are pending. -tailor antibiotics to culture results 11/25/2021 interval history: 57-year-old male with history of severe dilated nonschemic cardiomyopathy with ejection fraction of 25-30%, presented with shortness of breath with elevated BNP 7790, patient being diuresed with Lasix p.o. on 11/24 was seen by his insurance account assistant recommneded to stop hydrochlorothiazide and recommended to monitor patient 1 to 2 more day, and further recommendation, and patient continue to complaints of severe dizziness he is unable to walk to the bathroom from his bed, today insurance account assistant switch lasix ot IV, CT scan of the head is normal for any acute injury, chest x-ray is also concerning for pneumonia, most likely community-acquired pneumonia, started the patient ceftriaxone and azithromycin, will chest x-ray on Sunday, will have a PT OT evaluate the further recommendation to follow. (2) Diabetic peripheral neuropathy: Code(s): E11.42 - Type 2 diabetes mellitus with diabetic polyneuropathy Status: Acute Assessment and Plan: -continue with gabapentin (3) Heart failure, chronic, with acute decompensation: Code(s): I50.9 - Heart failure, unspecified Status: Acute Assessment and Plan: -continue with Entresto -could with Lasix -continue with hydrochlorothiazide -continue with metoprolol -continue Lasix -continue Jardiance -echo from 01/18/2022 shows an estimated EF of 25-30%. -repeat echo (4) Anxiety: Code(s): F41.9 - Anxiety disorder, unspecified Status: Acute Assessment and Plan: Continue with Xanax (5) Hypertension: Qualifiers: Hypertension type: essential hypertension Qualified Code(s): I10 - Essential (primary) hypertension Code(s): I10 - Essential (primary) hypertension Status: Chronic Assessment and Plan: -continue with Entresto for the CHF -continue with hydrochlorothiazide -continue with metoprolol (6) Diet-controlled diabetes mellitus: Code(s): E11.9 - Type 2 diabetes mellitus without complications Status: Chronic Assessment and Plan: -Accu-Cheks AC and HS with sliding scale insulin and hypoglycemic protocol. -check A1c. -I believe that the patient is on Jardiance for his heart but this could also be for the diabetes as well. DS: Summary Hospital Course Reason for hospitalization: Shortness of breath Narrative: This is a 57-year-old male patient has a history of congestive heart failure.? The patient has been complaining of shortness of breath over the last couple days.? The patient comes to the emergency room with complaints of shortness of breath and a dry cough.? The patient also complains of some dizziness.? Patient stated that he is having some dizziness with positional changes.? He has increased anxiety and panic attacks.? The patient denies any fever chills or any chest pain.? Or any lower extremity edema.? The patient is currently on room air.? The patient stated that he does take all of his routine medications as prescribed.? Patient's white count is 12.4.? His BNP 7790.? Influenza A/B and COVID are all negative.? Chest x-ray was read as pulmonary opacities may represent bronchiolitis, as can be seen with atypical infection asthma aspiration as small airways disease.? Head CT was performed due to the dizziness.? He was read as no acute intracranial process.? Mild scattered white matter hypoattenuation consistent with protein chemist
[2022-11-26 13:04] LABS: Glucose Point of Care 152 mg/dl (65-105)
== END 2022-11-26 13:59 | disposition home or self-care (01) | DRG 139 ==
LOC: ANHED 15:23 → ANH3MED 17:20
PROVIDERS: Emergency Medicine; Nurse Practitioner; Physician Assistant; Admitting Provider Internal Medicine; Emergency Provider Emergency Medicine; PCP Internal Medicine; Visit Provider Family Medicine
DX: J18.9 Pneumonia, unspecified organism (principal); E11.42 Type 2 diabetes mellitus with diabetic polyneuropathy; I27.20 Pulmonary hypertension, unspecified; I50.42 Chronic combined systolic (congestive) and diastolic (congestive) heart failure; I11.0 Hypertensive heart disease with heart failure; R51.9 Headache, unspecified; E66.9 Obesity, unspecified; F41.9 Anxiety disorder, unspecified; G47.33 Obstructive sleep apnea (adult) (pediatric); I42.8 Other cardiomyopathies; Z20.822 Contact with and (suspected) exposure to COVID-19; Z79.84 Long term (current) use of oral hypoglycemic drugs; Z79.899 Other long term (current) drug therapy; Z68.33 Body mass index [BMI] 33.0-33.9, adult
CPT/HCPCS: 36415; 70450; 71046; 80048; 80053; 82948; 83036; 83735; 83880; 85025; 85027; 87040; 87636; 93005; 96365; 96366; 96367; 96372; 96375; 97161; 97165; 99285; A9270; C8929; G0378; G0379; J0456; J0696; J1650; J1940; J2405; Q9957

== ENCOUNTER 2024-05-10 06:59 | Inpatient (IN) | payer SELFPAY ==
[2024-05-10] VITALS (12 sets, daily range): BP systolic 108–159; BP diastolic 78–113; PULSE 60–119; RESP 16–29; TEMP 36.2–37.7; O2SAT 93–100; BMI 30.7
--- NOTE | ~2024-05-10 | CT_ITS ---
EXAMINATION: CTA chest PE protocol DATE: 05/10/2024 11:18 CDT INDICATION: Hypoxia. Elevated d-dimer. TECHNIQUE: Computed tomographic angiography (CTA) of the chest was performed with 100 mL Omnipaque-35 0 intravenous contrast. The dose-length product was 839.72 mGy-cm. Maximum intensity projection 3D-re constructions of the aorta and other arteries were constructed by the technologist on a separate work station. Automated exposure control and iterative reconstruction technique were employed. COMPARISON: CT dated 05/08/2022. FINDINGS: Study is technically adequate without evidence for pulmonary embolism. Cardiomegaly. Small pleural effusions. The seminal lymphadenopathy, likely reactive. Groundglass opacities are present, l ikely reflecting edema. There is possible mild gallbladder wall thickening. Consider correlation with ultrasound as clinically indicated. IMPRESSION: 1. Diffuse groundglass opacities, likely reflecting edema. 2: Small pleural effusions. 3: Cardiomegaly. 4: Possible gallbladder wall thickening. Consider correlation with ultrasound. Reviewed, dictated and finalized at location B.
--- NOTE | ~2024-05-10 | XR_ITS ---
XR chest 2V 05/10/2024 07:26 Indication: Shortness of breath and cough Procedure: 2 view chest Comparison: Comparison to multiple prior studies sequentially, with oldest reviewed study dated 05/08. Findings: Small pleural effusion. Cardiomegaly. No edema, focal pneumonia or pneumothorax. No acute o sseous abnormality. Impression: 1: Small pleural effusion. Reviewed, dictated and finalized at location B. Impression: 1: Small pleural effusion.
--- NOTE | 2024-05-10 07:01 | ECG_ITS ---
Test Date: 2024-05-10 07:04:48 Measurements Intervals [place] Rate: 93 P: 49 MD: 184 QRS: -46 QRSD: 126 T: 56 QT: 509 QTc: 636 Interpretive Statements SINUS RHYTHM WITH FREQUENT VENTRICULAR PREMATURE COMPLEXES LEFT AXIS DEVIATION POSSIBLE LEFT ATRIAL ENLARGEMENT INFERIOR INFARCT, AGE INDETERMINATE NONSPECIFIC ST-T WAVE ABNORMALITY- HIGH LATERAL LEADS PROLONGED QT INTERVAL ABNORMAL ECG No previous ECG available for comparison Electronically Signed On 05-10-2024 08:42:02 CDT by Khadar Mckeon D.O.
[2024-05-10 07:12] LABS: Basophils Absolute Auto 0.1 K/mm3 (0.0-0.1); Basophils Percent Auto 0.4 % (0.2-1.2); Eosinophils Absolute Auto 0.3 K/mm3 (0-0.3); Eosinophils Percent Auto 2.2 % (0-4.4); Hematocrit 43.9 % (42.0-52.0); Hemoglobin 14.1 g/dL (14.0-18.0); Immature Granulocyte Absolute 0.07 K/mm3 (0.00-0.031); Immature Granulocyte Percent A 0.5 % (0-0.5); Lymphocytes Absolute Auto 2.08 K/mm3 (0.9-3.2); Mean Corpuscular HGB Conc 32.1 g/dl (32-36); Mean Corpuscular Hemoglobin 31.9 pg (26-34); Mean Corpuscular Volume 99.3 fl (80-100); Mean Platelet Volume 10.1 fl (7.4-10.4); Monocytes Absolute Auto 1.9 K/mm3 (0.1-0.6); Monocytes Percent Auto 14.7 % (2.6-8.5); Neutrophils Absolute Auto 8.6 K/mm3 (1.3-6.7); Neutrophils Percent Auto 66.2 % (45.5-73.1); Nucleated Red Blood Cells Perc 0.2 % (0.0-0.2); Platelet Count Result 354 k/mm3 (150-375); Red Blood Count 4.42 M/mm3 (4.6-6.20); Red Cell Distribution Width 14.6 % (11.5-14.5)
[2024-05-10 07:28] LABS: Alanine Aminotransferase 47 U/L (6-50); Albumin Level 4.1 g/dL (3.5-5.1); Alkaline Phosphatase 99 U/L (38-126); Anion Gap 9 mmol/L (4-12); Aspartate Amino Transferase 40 U/L (17-59); Bilirubin,Total 1.1 mg/dL (0.2-1.3); Blood Urea Nitrogen 16 mg/dL (9-20); Calcium 8.9 mg/dL (8.4-10.2); Carbon Dioxide 30 mmol/L (22-30); Chloride 99 mmol/L (98-107); Estimated CRCL calculation 71 ml/min; Estimated Glomerular Filt Rate > 60; Glucose 117 mg/dL (65-110); Potassium 3.6 mmol/L (3.4-5.0); Sodium 138 mmol/L (137-145)
--- NOTE | 2024-05-10 09:56 | ED.SOB ---
HPI - SOB/Dyspnea General Chief Complaint: Shortness of Breath/Dyspnea Stated Complaint: SOB Time Seen by Provider: 05/10/24 09:48 Source: patient and EMS Mode of arrival: EMS Limitations: other (Difficult to understand in the setting of chronic slurred speech) History of Present Illness HPI Narrative: Patient presents complaining shortness of breath. He has a history of stroke in 2018 which led to residual slurred speech. EMS notes they picked him up 3 times last week and he had a ground level fall versus sliding out his chair. He had reported to them previously that he used methamphetamine and EMS crew did note drug paraphernalia around the hotel room where he is currently residing. Not on home oxygen at baseline. He is complaining of pain under his ribs. Related Data Home Medications Medication Instructions Recorded Confirmed alprazolam 1 mg tablet 1 mg PO DAILY PRN Anxiety 05/10/24 05/10/24 aspirin 81 mg chewable tablet 81 mg PO DAILY 05/10/24 05/10/24 atorvastatin 80 mg tablet 80 mg PO DAILY 05/10/24 05/10/24 empagliflozin 10 mg tablet 10 mg PO DAILY 05/10/24 05/10/24 (Jardiance) furosemide 40 mg tablet (Lasix) 40 mg PO DAILY 05/10/24 05/10/24 gabapentin 400 mg capsule 400 mg PO TID 05/10/24 05/10/24 oxycodone-acetaminophen 5 mg-325 1 tablet PO Q12H PRN Pain 05/10/24 05/10/24 mg tablet (Percocet) rivaroxaban 15 mg (42)-20 mg (9) See Rx Instructions .Route .COMPLEX 05/10/24 05/10/24 tablets in a starter pack (Xarelto DVT-PE Treatment 30-Day Starter) Allergies Allergy/AdvReac Type Severity Reaction Status Date / Time nitroglycerin AdvReac Hypotension Verified 05/10/24 07:44 [facility] Past Medical History Medical History (Updated 05/11/24 @ 14:38 by Christy Zamudio MD) Anxiety Arthritis Combined systolic and diastolic congestive heart failure Echocardiogram 12/2021: Severely reduced left ventricular systolic function 25-30%, grade 2 diastolic dysfunction, mild pulmonary hypertension, moderate biatrial enlargement, mild aortic valve regurgitation, [id number] mitral valve regurgitation Diabetic peripheral neuropathy Diet-controlled diabetes mellitus Essential hypertension Hepatitis C History of CVA (cerebrovascular accident) 2018; residual slurred speech Migraine Nonischemic cardiomyopathy Obstructive sleep apnea Needs repeat sleep study Pulmonary hypertension Splenic infarct Surgical History Surgical History History of cardiac catheterization Performed in [place] approximately July 2019 and was normal per patient report. Status post right rotator cuff repair (01/2021) Family History Family History Mother Lung cancer Hypertension Emphysema lung Father Hypertension Sibling Acute myocardial infarction Hypertension Sibling Hypertension Sibling Hypertension Sibling Hypertension Sibling Hypertension Social History Social History (Updated 05/11/24 @ 14:37 by Christy Zamudio MD) Social History: Patient is from [place] but moved to the area in August 2019 after he and his . They have 3 grown children. He had his own apartment February 20[address] [facility] in [place]. Currently residing in a hotel. He works for [employer] Surrogate decision maker: Violetta (sister) Code status: Full code Smoking status: Never smoker Second hand tobacco smoke exposure: Yes Alcohol intake: former Alcohol use details: he states he drinks once a month if that Substance use: current Substance use type: sedatives and methamphetamine Do You Feel Safe in your Home?: Yes Lack of Transportation: YES Lack of Food: Often True Current Housing: I Do Not Have Housing Concerned About Future Housing: YES Difficulty Paying Gas/Electric Bills: YES Difficulty Paying for Meds: YES Currently Unemployed: No Education: High School Diploma/G
--- NOTE | 2024-05-10 10:06 | PC.NURSE ---
Lab called to add on D dimer and BNP
[2024-05-10 10:28] LABS: D Dimer 2.81 ug/mL (<0.48)
[2024-05-10 10:30] LABS: Alveolar/Arterial O2 Gradient 89.8 mmHg; Base Excess ABG -1.1 mEq/l (+/-2.0); Fractional Inspired Oxygen 30 %; HCO3 ABG 22.1 mEq/l (22.0-26.0); Oxygen Content ABG 19.5 %vol (16.0-22.0); Oxygen Saturation ABG 96.9 % (95.0-100.0); Oxyhemoglobin 95.2 % THb (90.0-100.0); PO2 ABG 85.3 mmHg (80.0-100.0); PO2 FiO2 Ratio Arterial Blood 2.84 %; Total Hemoglobin 14.5 g/dL (12.0-18.0); pH ABG 7.444 (7.350-7.450)
[2024-05-10 10:32] LABS: Device NASAL CANNULA; Liters per Minute 2.5 LPM; Modified Allen's Test Pass; Site Drawn LEFT RADIAL
[2024-05-10 10:34] LABS: NT Pro B Type Natriuretic Pept 10500 pg/mL (19.9-100)
[2024-05-10 10:53] LABS: Influenza A QL RT-PCR Negative (Negative); Influenza B QL RT-PCR Negative (Negative); RSV RNA, RT-PCR Negative (Negative); SARS-CoV-2 RNA PCR Negative (Negative)
[2024-05-10] MEDS: FUROSEMIDE INJ 40 MG/4 ML VIAL IV PUSH (11:41)
[2024-05-10 12:39] LABS: Magnesium 1.9 mg/dL (1.6-2.3)
--- NOTE | 2024-05-10 13:11 | PM.IMHP ---
H&P: HPI History of Present Illness Date/Time: 05/10/24 13:11 Chief Complaint: Shortness of Breath Narrative: 58 y/o M presents here with SOB with PMH CVA (residual memory difficulty), CHF, diet-controlled DM, HTN, hep C, nonischemic cardiomyopathy, migraines, GINA, and pulmonary hypertension. The patient presents here from a hotel [facility] via EMS for further evaluation of shortness of breath. Patient reports acute onset of shortness of breath 4 hours prior to arrival. Patient had just woken up when it started. Denies chest pain, palpitations, dizziness, syncope. Endorses associated nausea, lightheadedness, body aches, fever, and headache. Has chronic cough, no history of smoking per patient. Upon EMS arrival, they found drug paraphernalia scattered about the room. Patient has previous history of methamphetamine use. Denies recreational drug use. Patient is poor historian. per chart review, patient has been seen multiple times in multiple emergency departments. Starting on 04/18/2024 where he was seen at [facility] with complaints of left upper quadrant pain. Noted to have amphetamine abuse. CT showed an acute splenic infarct involving a majority of the splenic parenchyma, splenic artery appears occluded in its distal aspect near the hilum of the spleen, fat stranding edema adjacent to both adrenal glands uncertain etiology, colonic diverticulosis without diverticulitis, and cardiomegaly. Patient was started on heparin drip and he was transferred to [facility] ([facility]). Patient returned to [facility] on 05/04/2024 with abdominal pain that was identical in location to when he was seen on 04/18. CT was repeated which showed mild ascites which was new from the previous study and redemonstrated the splenic infarcts, mild infiltrative change around the duodenum ( duodenitis versus ulcerative disease but nonspecific), colonic diverticular disease, moderate to marked cardiomegaly. Patient was ultimately discharged and instructed to follow-up with his surgeon from his previous visit. Patient was then seen at [facility] on 05/06/2024. CT was again repeated which showed similar appearing splenic infarcts with mild perisplenic edema, stable mild free fluid in the right upper quadrant near the liver, stable diverticulosis of the descending and sigmoid colon without evidence of acute diverticulitis. Patient had still not filled his Xarelto due to cost or made follow-up appointments. Was discharged home with recommendation to call pharmacy and take medication as prescribed. Patient then presented on 05/07/24 at [facility] with complaints of chest pain, abdominal pain, and shortness of breath. Patient had wheezing on exam, given nebulizers, spoken with again about filling his Xarelto which he now has a coupon for. Was discharged with inhalers and antibiotic (Doxycycline) for COPD exacerbation. Initial VS at presentation: 99.8? F, HR 99, RR 20, 135/103, and 93% on 3L NC. ED workup showed: WBC 13.0, no anemia, elevated D-dimer, creatinine 1.1 and GFR >60, BNP 10,500. UDS showed positive amphetamine and benzos. Viral PCR negative. CXR no small pleural effusion. Chest CTA showed diffuse groundglass opacities (liekly reflecting edema), small pleural effusions, cardiomegaly, possible gallbladder wall thickening. Review of Systems Review of Systems: limited, poor historian All systems reviewed & are unremarkable except as noted in HPI and below [facility] Past Medical History Medical History (Updated 05/10/24 @ 15:36 by Virginia Kim APRN) Anxiety Arthritis Combined systolic and diastolic congestive heart failure Echocardiogram 12/2021: Severely reduced left ventricular systolic function 25-30%, grade 2 diastolic dysfunction, mild pulmonary hypertension, moderate biatrial enlargement, mild aortic valve regurgitation, [id number] mitral valve regurgitation Diabetic perip
[2024-05-10 13:15] LABS: Amphetamine Screen Urine Positive (Negative); Barbiturate Screen Urine Negative (Negative); Benzodiazepines Screen Urine Positive (Negative); Cannabinoid Screen Urine Negative (Negative); Cocaine Screen Urine Negative (Negative); Methadone Screen Urine Negative (Negative); Opiate Screen Urine Negative (Negative); Phencyclidine Screen Urine Negative (Negative)
--- NOTE | 2024-05-10 13:35 | ADMGEN ---
This patient, Hayes Meza, was admitted to Medical Room 349-01. Patient/family oriented to hospital policies and general routines including ID bracelet, bed and alarms, visiting hours, pain management, procedures, bathroom and other care routines, personal items, smoking policy, room service/diet, and visiting hours. Information on how to activate the Rapid Response Team has been discussed. Patient/Family are encouraged to report perceived risks to care and to ask questions if they do not understand what they are told or what they should do.
--- NOTE | 2024-05-10 14:24 | PC.NURSE ---
Addendum entered by Alicja Bergeron RN 05/10/24 14:30: Lolis also stated that these prescriptions were picked up but the pt did not admit to taking them: percocet 5-325 mg Q12hr PRN and alprazolam 1 mg daily PRN. Original Note: Spoke with Lolis at [facility] in [place] regarding this pt's home medications. Lolis stated that a lot of the new medications prescribed were never picked up. An inhaler and antibiotic were called in 05/07/24 from an ER physician at [facility] but never picked up. The following medications were called in 04/25/24 but were never picked up: 40 mg furosemide daily and 80 mg atorvastatin daily The patient admitted to taking these medications up until today: 100 mg metoprolol ER daily 10 mg jardiance daily 49-51 mg entresto BID xarelto starter pack (never picked up) These medications have not been picked up for a few months and the pt did not admit to taking these: 25 mg doxepin HS PRN 400 mg gabapentin TID 10 mg lexapro daily
--- NOTE | 2024-05-10 15:50 | ECG_ITS ---
Test Date: 2024-05-10 16:23:12 Measurements Intervals [place] Rate: 116 P: 0 [place]: 0 QRS: -48 QRSD: 138 T: 107 QT: 370 QTc: 515 Interpretive Statements ATRIAL FLUTTER/TACHYCARDIA WITH RAPID VENTRICULAR RESPONSE INTRAVENTRICULAR CONDUCTION DELAY CONSIDER INFERIOR INFARCT, AGE INDETERMINATE BORDERLINE ST-T WAVE ABNORMALITY- LAT/HIGH LAT LEADS ABNORMAL ECG Compared to ECG 05/10/2024 07:04:48 ATRIAL FLUTTER/TACHYCARDIA NOW PRESENT Electronically Signed On 05-10-2024 19:53:10 CDT by Khadar Mckeon D.O.
[2024-05-10] MEDS: RIVAROXABAN 15 MG TABLET PO (16:46)
[2024-05-10] MEDS: METOPROLOL TARTRATE INJ 5 MG/5 ML VIAL IV PUSH (16:46)
[2024-05-10] MEDS: MAGNESIUM SULF 1 GM/D5W 100 ML 1 GM/100 ML BAG IVPB (16:52)
[2024-05-10 17:46] LABS: Troponin I 0.026 ng/mL (0.000-0.034)
[2024-05-10 18:14] LABS: Thyroid Stimulating Hormone Reflex 0.941 uIU/mL (0.465-4.68)
[2024-05-10 20:42] LABS: Troponin I 0.029 ng/mL (0.000-0.034)
[2024-05-10] MEDS: SACUBITRIL/VALSARTAN 49-51 MG TABLET 1 TABLET PO (21:14)
[2024-05-10] MEDS: GABAPENTIN 400 MG CAPSULE PO (21:14)
[2024-05-10] MEDS: DOXYCYCLINE HYCLATE 100 MG TABLET PO (21:14)
[2024-05-10] MEDS: ALPRAZolam (*CRX) 0.5 MG TABLET 1 MG PO (21:19)
[2024-05-10 23:57] LABS: Troponin I 0.035 ng/mL (0.000-0.034)
[2024-05-11] VITALS (13 sets, daily range): BP systolic 101–128; BP diastolic 75–91; PULSE 66–101; RESP 18–20; TEMP 36.2–36.8; O2SAT 85–100
[2024-05-11] MEDS: DOXEPIN HCL 25 MG CAPSULE PO (00:32)
[2024-05-11] MEDS: GABAPENTIN 400 MG CAPSULE PO ×3 (04:43→21:37)
--- NOTE | 2024-05-11 06:00 | ECG_ITS ---
Test Date: 2024-05-11 08:02:36 Measurements Intervals [place] Rate: 97 P: 54 DE: 180 QRS: -20 QRSD: 125 T: 75 QT: 471 QTc: 599 Interpretive Statements SINUS RHYTHM WITH OCCASIONAL VENTRICULAR PREMATURE COMPLEXES LEFT ATRIAL ENLARGEMENT RIGHT ATRIAL ENLARGEMENT INTRAVENTRICULAR CONDUCTION DELAY DELAYED PRECORDIAL R/S TRANSITION CONSIDER INFERIOR INFARCT, AGE INDETERMINATE BORDERLINE ST-T WAVE ABNORMALITY- LAT/HIGH LAT LEADS BASELINE ARTIFACT- AVR, AVL, AVF ABNORMAL ECG Compared to ECG 05/10/2024 16:23:12 SINUS RHYTHM NOW PRESENT Electronically Signed On 05-11-2024 11:58:22 CDT by Khadar Mckeon D.O.
[2024-05-11 06:26] LABS: Basophils Absolute Auto 0.1 K/mm3 (0.0-0.1); Basophils Percent Auto 0.5 % (0.2-1.2); Eosinophils Absolute Auto 0.4 K/mm3 (0-0.3); Eosinophils Percent Auto 2.9 % (0-4.4); Hematocrit 43.3 % (42.0-52.0); Hemoglobin 13.9 g/dL (14.0-18.0); Immature Granulocyte Absolute 0.05 K/mm3 (0.00-0.031); Immature Granulocyte Percent A 0.4 % (0-0.5); Lymphocytes Absolute Auto 1.76 K/mm3 (0.9-3.2); Lymphocytes Percent Auto 13.1 % (18.3-44.2); Mean Corpuscular HGB Conc 32.1 g/dl (32-36); Mean Corpuscular Hemoglobin 31.3 pg (26-34); Mean Corpuscular Volume 97.5 fl (80-100); Mean Platelet Volume 10.1 fl (7.4-10.4); Monocytes Absolute Auto 1.9 K/mm3 (0.1-0.6); Monocytes Percent Auto 14.4 % (2.6-8.5); Neutrophils Absolute Auto 9.3 K/mm3 (1.3-6.7); Neutrophils Percent Auto 68.7 % (45.5-73.1); Nucleated Red Blood Cells Perc 0.1 % (0.0-0.2); Platelet Count Result 351 k/mm3 (150-375); Red Blood Count 4.44 M/mm3 (4.6-6.20); Red Cell Distribution Width 14.6 % (11.5-14.5); White Blood Count 13.5 K/mm3 (4.5-10.0)
[2024-05-11 06:41] LABS: Alanine Aminotransferase 35 U/L (6-50); Alkaline Phosphatase 93 U/L (38-126); Anion Gap 11 mmol/L (4-12); Aspartate Amino Transferase 28 U/L (17-59); Bilirubin,Total 1.3 mg/dL (0.2-1.3); Blood Urea Nitrogen 16 mg/dL (9-20); Calcium 8.3 mg/dL (8.4-10.2); Carbon Dioxide 28 mmol/L (22-30); Chloride 99 mmol/L (98-107); Estimated CRCL calculation 77 ml/min; Estimated Glomerular Filt Rate > 60; Glucose 130 mg/dL (65-110); Potassium 3.5 mmol/L (3.4-5.0); Sodium 138 mmol/L (137-145)
[2024-05-11] MEDS: ATORVASTATIN 40 MG TABLET 80 MG PO (08:07)
[2024-05-11] MEDS: DOXYCYCLINE HYCLATE 100 MG TABLET PO ×2 (08:07→21:37)
[2024-05-11] MEDS: ASPIRIN 81 MG CHEWABLE TABLET PO (08:07)
[2024-05-11] MEDS: SACUBITRIL/VALSARTAN 49-51 MG TABLET 1 TABLET PO ×2 (08:07→21:37)
[2024-05-11] MEDS: METOPROLOL SUCCINATE EXT REL 100 MG TABCR PO (08:08)
[2024-05-11] MEDS: FUROSEMIDE 40 MG TABLET PO (08:08)
[2024-05-11] MEDS: EMPAGLIFLOZIN 10 MG TABLET PO (08:11)
--- NOTE | 2024-05-11 09:53 | PM.IMPN ---
Progress Note: A&P Assessment and Plan (1) Acute on chronic heart failure: Qualifiers: Heart failure type: unspecified Qualified Code(s): I50.9 - Heart failure, unspecified Code(s): I50.9 - Heart failure, unspecified Status: Acute Assessment and Plan: - CTA showing diffuse groundglass opacities, likely reflecting edema and small pleural effusions - BNP 10,500 - most recent echo (11/2022): LV systolic function is moderate to severely reduced, estimated EF 30-35%, grade 1 diastolic dysfunction. See report for full details. - currently on: Lasix 40 mg daily, given Lasix 40 mg IVP in ED with some improvement in SOB. - daily weights - monitor I&Os - trend renal function - tele monitoring (2) Hypoxemia requiring supplemental oxygen: Code(s): R09.02 - Hypoxemia; Z99.81 - Dependence on supplemental oxygen Status: Acute Assessment and Plan: - CTA Chest: 1. Diffuse groundglass opacities, likely reflecting edema. 2: Small pleural effusions. 3: Cardiomegaly. 4: Possible gallbladder wall thickening. Consider correlation with ultrasound. - CXR: small pleural effusions - currently requiring 3 L NC, no baseline - suspect combination of CHF exacerbation and COPD exacerbation, previously prescribed inhaler and antibiotics on 05/07 per [facility] ED. not seen on outside med rec. Will start doxycycline given QT prolongation. - telemetry (3) Left anterior fascicular block (LAFB) determined by electrocardiography: Code(s): I44.4 - Left anterior fascicular block Status: Acute Assessment and Plan: - EKG, initial: sinus rhythm with frequent PVCs, left axis deviation, possible left atrial enlargement, inferior infarct age indeterminate, nonspecific ST-T-wave abnormality in high lateral leads, prolonged QT interval (QT 509, QTc 636) - Troponin x3 ordered - no active CP, SOB resolving - telemetry monitoring (4) Prolonged QT interval: Code(s): R94.31 - Abnormal electrocardiogram [ECG] [EKG] Status: Acute Assessment and Plan: - EKG, initial: sinus rhythm with frequent PVCs, left axis deviation, possible left atrial enlargement, inferior infarct age indeterminate, nonspecific ST-T-wave abnormality in high lateral leads, prolonged QT interval (QT 509, QTc 636) - reviewed most recent EKG prior to today's visit (2/1/23) in system, QTc 496. Most recent at [facility] (05/07/24) the QTc was 598. - possible contributing factors: - Mag 1.9, K 3.6, Ca 8.9. will give 1G of Mag IVPB - add TSH - reviewed home medications: hold escitalopram. - repeat EKG in the morning 05/11- trend labs (5) Amphetamine abuse: Code(s): F15.10 - Other stimulant abuse, uncomplicated Status: Acute Assessment and Plan: - UDA: + amphetamines, +benzos - reported use: none - per chart review of OSH ED records, has previously tested positive for amphetamines on multiple different occasions - denies any drug use but UDS positive + amphetamines, +benzos - monitor for withdrawal (6) Essential hypertension: Code(s): I10 - Essential (primary) hypertension Status: Acute Assessment and Plan: - chronic, currently 145/108 - continue home medications: Entresto 49-51 b.i.d., metoprolol 100 mg ER daily - monitor (7) Splenic infarct: Code(s): D73.5 - Infarction of spleen Status: Acute Assessment and Plan: - prescribe Xarelto, did not merchandise pickup/receiving associate due to cost, will start at 15 mg x 21 days then 10 mg x9 days - SCDs in interim Plan Patient here with recurrent shortness of breath. Imaging concerning for CHF exacerbation. Patient also found to have QT prolongation. Holding Lasix and escitalopram. Repeat EKG in a.m.. Will give 1 g of Mag. no significant electrolyte derangements. Patient also has recent history of splenic infarct and was prescribed Xarelto, has not started. Will start now. Diet: heart healthy GI Prophylaxis: not currently
--- NOTE | 2024-05-11 11:18 | PM.CNCAR ---
Assessment and Plan Assessment and plan (1) Prolonged QT interval: Code(s): R94.31 - Abnormal electrocardiogram [ECG] [EKG] Status: Acute Assessment and Plan: Possibly function of benzodiazepines and methamphetamine. Follow QTC with serial ECGs. ECG in the morning will be ordered (2) Acute on chronic systolic CHF (congestive heart failure): Code(s): I50.23 - Acute on chronic systolic (congestive) heart failure Status: Acute Assessment and Plan: Likely related to noncompliance. Resume Entresto, metoprolol, Jardiance, furosemide for now (3) Amphetamine abuse: Code(s): F15.10 - Other stimulant abuse, uncomplicated Status: Acute (4) Splenic infarct: Code(s): D73.5 - Infarction of spleen Status: Acute Assessment and Plan: Possibly related to atrial flutter (5) Atrial flutter, paroxysmal: Code(s): I48.92 - Unspecified atrial flutter Status: Acute Assessment and Plan: Atrial flutter noted by ECG. Continue beta-kamila and Xarelto (6) Nonischemic cardiomyopathy: Code(s): I42.8 - Other cardiomyopathies Status: Acute Assessment and Plan: Continue as above History of Present Illness History of Present Illness Consult date/time: 05/11/24 11:18 Requesting physician: Christy Zamudio MD Consult reason: congestive heart failure Reason For Visit: Acute on Chronic Heart Failure/Hypoxia Requiring S Narrative: Reason for consultation: Acute on chronic CHF and prolonged QTC Requesting provider: Dr. Zamudio Date of service 05/11/2024 History: 58-year-old who presents with with SOB with PMH CVA (residual memory difficulty), CHF, diet-controlled DM, HTN, hepatitis C ischemic cardiomyopathy, migraines, GINA, and pulmonary hypertension. [facility] for further evaluation of shortness of breath. Patient reports acute onset of shortness of breath 4 hours prior to arrival. Patient had just woken up when it started. At present, history is predominantly obtained by reviewing chart record. Reportedly he had no chest pain, syncope, palpitations. Upon EMS arrival, they found drug paraphernalia scattered about the room. Patient has previous history of methamphetamine use. He is denying drug use at present. Per chart review, patient has been seen multiple times in multiple emergency departments. Starting on 04/18/2024 where he was seen at [facility] with complaints of left upper quadrant pain. Noted to have amphetamine abuse. CT showed an acute splenic infarct involving a majority of the splenic parenchyma, splenic artery appears occluded in its distal aspect near the hilum of the spleen, fat stranding edema adjacent to both adrenal glands uncertain etiology, colonic diverticulosis without diverticulitis, and cardiomegaly. Patient was started on heparin drip and he was transferred to [facility] ([facility]). Patient returned to [facility] on 05/04/2024 with abdominal pain that was identical in location to when he was seen on 04/18. CT was repeated which showed mild ascites which was new from the previous study and redemonstrated the splenic infarcts, mild infiltrative change around the duodenum ( duodenitis versus ulcerative disease but nonspecific), colonic diverticular disease, moderate to marked cardiomegaly. Patient was ultimately discharged and instructed to follow-up with his surgeon from his previous visit. Patient was then seen at [facility]) on 05/06/2024. CT was again repeated which showed similar appearing splenic infarcts with mild perisplenic edema, stable mild free fluid in the right upper quadrant near the liver, stable diverticulosis of the descending and sigmoid colon without evidence of acute diverticulitis. Patient had still not filled his Xarelto due to cost or made follow-up appointments. Was discharged home with recom
[2024-05-11] MEDS: POTASSIUM CHLORIDE 20 MEQ ER TABLET 40 MEQ PO (14:10)
[2024-05-11] MEDS: RIVAROXABAN 15 MG TABLET PO (17:28)
[2024-05-11] MEDS: ALPRAZolam (*CRX) 0.5 MG TABLET 1 MG PO (21:37)
[2024-05-11] MEDS: oxyCODONE/ACETAMINOPHEN (*CRX) 5-325 MG TABLET 1 TABLET PO (22:39)
[2024-05-12] VITALS (11 sets, daily range): BP systolic 101–115; BP diastolic 70–78; PULSE 65–115; RESP 16–20; TEMP 36.2–37.2; O2SAT 95–98
--- NOTE | 2024-05-12 | ECHO_ITS ---
Patient Info Name: Hayes Meza Age: 58 years : 1965 Gender: Male Ht: 68 in Wt: 206 lbs BSA: 2.15 m2 HR: 70 bpm BP: 113 / 70 mmHg Heart Rhythm: Sinus Rhythm Technical Quality: Good Exam Date: 05/12/2024 10:05 AM Exam Location: Echo Lab Patient Status: Inpatient Admit Date: 05/11/2024 Staff Ordering Physician: Virginia Kim APRN Cane Flume Watcher: Santhosh Meier RDCS Attending Provider: Kandy Osborn MD Referring Physician: Julio YOUNG; Exam Type: CA echo doppler color flow Study Info Indications - QT Prolongation Complete two-dimensional, color flow and Doppler transthoracic echocardiogram is performed. Summary 1. Left ventricular chamber dimension is mildly enlarged. 2. Left ventricular systolic function is severely reduced, estimated at 15-20%. 3. Right ventricular chamber dimension is mildly enlarged. 4. Right ventricular systolic function is normal. 5. Left atrial chamber dimension is moderately enlarged. 6. Right atrial chamber dimension is moderately enlarged. 7. There is mild mitral valve regurgitation. 8. There is mild tricuspid valve regurgitation. Left Ventricle Left ventricular chamber dimension is mildly enlarged. Left ventricular systolic function is severely reduced, estimated at 15-20%. There is no increased left ventricular wall thickness. Right Ventricle Right ventricular chamber dimension is mildly enlarged. Right ventricular systolic function is normal. Left Atria Left atrial chamber dimension is moderately enlarged. Right Atria Right atrial chamber dimension is moderately enlarged. Atrial Septum Intact interatrial septum visualized by color flow imaging. Aortic Valve The aortic valve is probable trileaflet. There is moderate aortic valve sclerosis. There is no aortic valve stenosis. There is no aortic valve regurgitation. Pulmonic Valve The pulmonic valve is not well visualized. There is trace pulmonic regurgitation. Mitral Valve The mitral valve has thickened leaflets. There is mild mitral valve regurgitation. Tricuspid Valve There is mild tricuspid valve regurgitation. Pericardium/Pleural There is no pericardial effusion. Inferior Vena Cava Inferior vena cava is not well visualized. Aorta The aortic root size at the sinus of Valsalva is normal. Left Ventricular Outflow Tract Name Value Normal LVOT 2D LVOT Diameter 2.2 cm LVOT Doppler LVOT Peak Gradient 5 mmHg LVOT Mean Gradient 3 mmHg LVOT VTI 24 cm LVOT VTI/AV VTI Ratio 0.9 LVOT Stroke Volume 91 ml LVOT CO 6.5 l/min LVOT CI 3.0 l/min/m2 Pulmonic Valve Name Value Normal PV Doppler PV Peak Gradient 1 mmHg Mitral Valve Nam
[2024-05-12] MEDS: GABAPENTIN 400 MG CAPSULE PO ×3 (05:17→20:45)
--- NOTE | 2024-05-12 08:00 | ECG_ITS ---
Test Date: 2024-05-12 07:04:23 Measurements Intervals [place] Rate: 78 P: 59 TN: 210 QRS: -42 QRSD: 126 T: 112 QT: 456 QTc: 521 Interpretive Statements SINUS RHYTHM WITH FIRST DEGREE AV BLOCK LEFT AXIS DEVIATION POSSIBLE LEFT ATRIAL ENLARGEMENT INTRAVENTRICULAR CONDUCTION DELAY INFERIOR INFARCT, AGE INDETERMINATE NONSPECIFIC ST-T WAVE ABNORMALITY- ANTEROLAT/HIGH LAT LEADS PROLONGED QT INTERVAL ABNORMAL ECG Compared to ECG 05/11/2024 08:02:36 First degree AV block now present Left-axis deviation now present Electronically Signed On 05-12-2024 07:48:00 CDT by Khadar Mckeon D.O.
[2024-05-12] MEDS: SACUBITRIL/VALSARTAN 49-51 MG TABLET 1 TABLET PO ×2 (08:41→20:45)
[2024-05-12] MEDS: DOXYCYCLINE HYCLATE 100 MG TABLET PO ×2 (08:41→20:45)
[2024-05-12] MEDS: METOPROLOL SUCCINATE EXT REL 100 MG TABCR PO (08:41)
[2024-05-12] MEDS: ATORVASTATIN 40 MG TABLET 80 MG PO (08:41)
[2024-05-12] MEDS: ASPIRIN 81 MG CHEWABLE TABLET PO (08:41)
[2024-05-12] MEDS: FUROSEMIDE 40 MG TABLET PO (08:41)
[2024-05-12] MEDS: EMPAGLIFLOZIN 10 MG TABLET PO (08:47)
--- NOTE | 2024-05-12 08:52 | PM.IMPN ---
Progress Note: A&P Assessment and Plan (1) Acute on chronic heart failure: Qualifiers: Heart failure type: unspecified Qualified Code(s): I50.9 - Heart failure, unspecified Code(s): I50.9 - Heart failure, unspecified Status: Acute Assessment and Plan: - CTA showing diffuse groundglass opacities, likely reflecting edema and small pleural effusions - BNP 10,500 - most recent echo (11/2022): LV systolic function is moderate to severely reduced, estimated EF 30-35%, grade 1 diastolic dysfunction. See report for full details. - currently on: Lasix 40 mg daily, given Lasix 40 mg IVP in ED with some improvement in SOB. - daily weights - monitor I&Os - trend renal function - tele monitoring 05/12- cardiology following, notes reviewed Likely related to noncompliance. Resume Entresto, metoprolol, Jardiance, furosemide for now (2) Hypoxemia requiring supplemental oxygen: Code(s): R09.02 - Hypoxemia; Z99.81 - Dependence on supplemental oxygen Status: Acute Assessment and Plan: - CTA Chest: 1. Diffuse groundglass opacities, likely reflecting edema. 2: Small pleural effusions. 3: Cardiomegaly. 4: Possible gallbladder wall thickening. Consider correlation with ultrasound. - CXR: small pleural effusions - currently requiring 3 L NC, no baseline - suspect combination of CHF exacerbation and COPD exacerbation, previously prescribed inhaler and antibiotics on 05/07 per [facility] ED. not seen on outside med rec. Will start doxycycline given QT prolongation. - telemetry 05/12- ra- stable- continue to monitor. Finish Doxycycline- last day 05/15 2100 (3) Left anterior fascicular block (LAFB) determined by electrocardiography: Code(s): I44.4 - Left anterior fascicular block Status: Acute Assessment and Plan: - EKG, initial: sinus rhythm with frequent PVCs, left axis deviation, possible left atrial enlargement, inferior infarct age indeterminate, nonspecific ST-T-wave abnormality in high lateral leads, prolonged QT interval (QT 509, QTc 636) - Troponin x3 ordered - no active CP, SOB resolving - telemetry monitoring - cardiology following (4) Prolonged QT interval: Code(s): R94.31 - Abnormal electrocardiogram [ECG] [EKG] Status: Acute Assessment and Plan: - EKG, initial: sinus rhythm with frequent PVCs, left axis deviation, possible left atrial enlargement, inferior infarct age indeterminate, nonspecific ST-T-wave abnormality in high lateral leads, prolonged QT interval (QT 509, QTc 636) - reviewed most recent EKG prior to today's visit (11/22/22) in system, QTc 496. Most recent at [facility] (05/07/24) the QTc was 598. - possible contributing factors: - Mag 1.9, K 3.6, Ca 8.9. will give 1G of Mag IVPB - add TSH - reviewed home medications: hold escitalopram. - repeat EKG in the morning 05/11- trend labs -05/12- cardiology is consulted-appreciate recommendations Possibly function of benzodiazepines and methamphetamine. Follow QTC with serial ECGs. ECG in the morning will be ordered (5) Amphetamine abuse: Code(s): F15.10 - Other stimulant abuse, uncomplicated Status: Acute Assessment and Plan: - UDA: + amphetamines, +benzos - reported use: none - per chart review of OSH ED records, has previously tested positive for amphetamines on multiple different occasions - denies any drug use but UDS positive + amphetamines, +benzos - monitor for withdrawal 05/12- discussed the need for rehab- pt still denying drug use (6) Essential hypertension: Code(s): I10 - Essential (primary) hypertension Status: Acute Assessment and Plan: - chronic, currently 145/108 - continue home medications: Entresto 49-51 b.i.d., metoprolol 100 mg ER daily - monitor 05/12- reviewed and stable (7) Splenic infarct: Code(s): D73.5 - Infarction of spleen Status: Acute Assessment and Plan: - prescribe Xarelto, did not picker and sorter load and unload
--- NOTE | 2024-05-12 10:03 | PM.PNCARD ---
Progress Note: A&P Assessment and Plan (1) Prolonged QT interval: Code(s): R94.31 - Abnormal electrocardiogram [ECG] [EKG] Status: Acute Assessment and Plan: Possibly function of benzodiazepines and methamphetamine. QTc this morning improving, 521ms Check another EKG in a.m. (2) Acute on chronic systolic CHF (congestive heart failure): Code(s): I50.23 - Acute on chronic systolic (congestive) heart failure Status: Acute Assessment and Plan: Likely related to noncompliance. Resume Entresto, metoprolol, Jardiance, furosemide for now (3) Amphetamine abuse: Code(s): F15.10 - Other stimulant abuse, uncomplicated Status: Acute (4) Splenic infarct: Code(s): D73.5 - Infarction of spleen Status: Acute Assessment and Plan: Possibly related to atrial flutter (5) Atrial flutter, paroxysmal: Code(s): I48.92 - Unspecified atrial flutter Status: Acute Assessment and Plan: Atrial flutter noted by ECG. Continue beta-kamila and Xarelto (6) Nonischemic cardiomyopathy: Code(s): I42.8 - Other cardiomyopathies Status: Acute Assessment and Plan: Continue as above Subjective Date/time seen: 05/12/24 10:03 Interval history: Cardiology follow up for CHF, cardiomyopathy Date of service 05/12/2024: He is feeling better this morning. Denies any shortness of breath, orthopnea, chest pain, swelling. Review of Systems Review of Systems: All systems reviewed & are unremarkable except as noted in HPI and below Constitutional: Constitutional: Denies body ache(s) and Denies excessive sweating Eyes: Eyes: Denies blurry vision ENT: Denies dysphagia Cardiovascular: Cardiovascular: Denies chest pain Respiratory: Respiratory: Denies chest congestion Gastrointestinal: Gastrointestinal: Denies abdominal pain and Denies dysphagia Genitourinary: Genitourinary: Denies hematuria Musculoskeletal: Musculoskeletal: Denies back pain Integumentary/Breasts: Skin/Breast: Denies erythema Neurologic: Denies Abnormal speech present Psychiatric: Psychiatric: Denies anxiety Endocrine: Endocrine: Denies excessive sweating Hematologic/Lymphatic: Hematologic/Lymphatic: Denies easy bleeding Allergic/Immunologic: Allergic/Immunologic: Denies GI upset with certain foods Exam Const: General: comfortable and no acute distress HENMT: Face/Nose/Sinus: Normal nares present Mouth: Yes moist mucous membranes Eyes: General: appearance normal, both eyes and all related structures Sclera: sclerae normal Neck: Neck: supple and no JVD Chest: Other: No reproducible chest wall pain to palpation Resp: Effort & Inspection: normal respiratory effort Auscultation: clear to auscultation bilaterally Cardio: Rate: regular rate Rhythm: regular rhythm Heart sounds: no murmurs GI: Inspection: non-distended Auscultation: normal bowel sounds Skin: General skin exam: normal color and no rashes or lesions noted Neuro: Speech: No normal speech and No Abnormal speech present Motor exam (neuro): 5/5 motor strength present throughout Extrem: General: normal to inspection Other: No edema Psych: Mental Status: mental status grossly normal Speech and movement: Slurred speech present Objective Data Vital Signs Vital Signs: Vital Signs - 24 hr 05/11/24 10:05 05/11/24 10:10 05/11/24 10:12 Temperature Pulse Rate Respiratory Rate Blood Pressure Pulse Oximetry 96 85 L 97 Oxygen Delivery Nasal Cannula Room Air Nasal Cannula Oxygen Flow Rate 1 1 05/11/24 12:00 05/11/24 14:00 05/11/24 16:00 Temperature 36.2 C L Pulse Rate 81 83 81 Respiratory Rate 20 Blood Pressure 128/75 Pulse Oximetry 98 Oxygen Delivery Oxygen Flow Rate 05/11/24 22:00 05/11/24 20:00 05/11/24 20:00 Temperature 36.8 C Pulse Rate 66 94 Respiratory Rate 18 Blood Pressure 122/91 H Pulse Oximetry 99 99 Oxyg
[2024-05-12] MEDS: guaiFENesin 12 HR 600 MG TABCR PO ×2 (11:51→20:45)
[2024-05-12] MEDS: LIDOCAINE 5% PATCH 1 PATCH TRANSDERM (11:51)
[2024-05-12] MEDS: RIVAROXABAN 15 MG TABLET PO (17:54)
[2024-05-12] MEDS: oxyCODONE/ACETAMINOPHEN (*CRX) 5-325 MG TABLET 1 TABLET PO (18:56)
[2024-05-12] MEDS: ACETAMINOPHEN 325 MG TABLET 650 MG PO (23:24)
[2024-05-13] VITALS (10 sets, daily range): BP systolic 97–127; BP diastolic 70–87; PULSE 69–91; RESP 16–18; TEMP 36.2–36.7; O2SAT 97–99
[2024-05-13] MEDS: GABAPENTIN 400 MG CAPSULE PO ×3 (06:16→20:25)
--- NOTE | 2024-05-13 08:46 | ECG_ITS ---
Test Date: 2024-05-13 10:28:54 Measurements Intervals [place] Rate: 73 P: 58 GA: 217 QRS: -42 QRSD: 129 T: 138 QT: 434 QTc: 481 Interpretive Statements SINUS RHYTHM WITH FIRST DEGREE AV BLOCK WITH OCCASIONAL VENTRICULAR PREMATURE COMPLEXES LEFT AXIS DEVIATION POSSIBLE LEFT ATRIAL ENLARGEMENT INTRAVENTRICULAR CONDUCTION DELAY CONSIDER INFERIOR INFARCT, AGE INDETERMINATE MODERATE ST-T WAVE ABNORMALITY, CONSIDER HIGH LATERAL ISCHEMIA ABNORMAL ECG Compared to ECG 05/12/2024 07:04:23 ST-T WAVE ABNORMALITY NOW PRESENT Electronically Signed On 05-13-2024 10:56:05 CDT by Khadar Mckeon D.O.
[2024-05-13] MEDS: FUROSEMIDE 40 MG TABLET PO (09:58)
[2024-05-13] MEDS: ATORVASTATIN 40 MG TABLET 80 MG PO (09:58)
[2024-05-13] MEDS: guaiFENesin 12 HR 600 MG TABCR PO ×2 (09:58→20:25)
[2024-05-13] MEDS: DOXYCYCLINE HYCLATE 100 MG TABLET PO ×2 (09:58→20:27)
[2024-05-13] MEDS: METOPROLOL SUCCINATE EXT REL 100 MG TABCR PO (09:58)
[2024-05-13] MEDS: SACUBITRIL/VALSARTAN 49-51 MG TABLET 1 TABLET PO ×2 (09:58→20:25)
[2024-05-13] MEDS: ASPIRIN 81 MG CHEWABLE TABLET PO (09:58)
[2024-05-13] MEDS: LIDOCAINE 5% PATCH 1 PATCH TRANSDERM (09:59)
[2024-05-13] MEDS: EMPAGLIFLOZIN 10 MG TABLET PO (09:59)
--- NOTE | 2024-05-13 10:31 | PM.IMPN ---
Progress Note: A&P Assessment and Plan (1) Acute on chronic heart failure: Qualifiers: Heart failure type: unspecified Qualified Code(s): I50.9 - Heart failure, unspecified Code(s): I50.9 - Heart failure, unspecified Status: Acute Assessment and Plan: - CTA showing diffuse groundglass opacities, likely reflecting edema and small pleural effusions - BNP 10,500 - most recent echo (11/2022): LV systolic function is moderate to severely reduced, estimated EF 30-35%, grade 1 diastolic dysfunction. See report for full details. - currently on: Lasix 40 mg daily, given Lasix 40 mg IVP in ED with some improvement in SOB. - daily weights - monitor I&Os - trend renal function - tele monitoring 05/12- cardiology following, notes reviewed Likely related to noncompliance. Resume Entresto, metoprolol, Jardiance, furosemide for now - labs/vs reviewed- stable will follow cardiology lead when pt is stable for discharge - will need clear f/u communication and resources available- as noncompliance was an issue for him (2) Hypoxemia requiring supplemental oxygen: Code(s): R09.02 - Hypoxemia; Z99.81 - Dependence on supplemental oxygen Status: Acute Assessment and Plan: - CTA Chest: 1. Diffuse groundglass opacities, likely reflecting edema. 2: Small pleural effusions. 3: Cardiomegaly. 4: Possible gallbladder wall thickening. Consider correlation with ultrasound. - CXR: small pleural effusions - currently requiring 3 L NC, no baseline - suspect combination of CHF exacerbation and COPD exacerbation, previously prescribed inhaler and antibiotics on 05/07 per [facility] ED. not seen on outside med rec. Will start doxycycline given QT prolongation. - telemetry 05/12- ra- stable- continue to monitor. Finish Doxycycline- last day 05/15 2100 (3) Left anterior fascicular block (LAFB) determined by electrocardiography: Code(s): I44.4 - Left anterior fascicular block Status: Acute Assessment and Plan: - EKG, initial: sinus rhythm with frequent PVCs, left axis deviation, possible left atrial enlargement, inferior infarct age indeterminate, nonspecific ST-T-wave abnormality in high lateral leads, prolonged QT interval (QT 509, QTc 636) - Troponin x3 ordered - no active CP, SOB resolving - telemetry monitoring - cardiology following (4) Prolonged QT interval: Code(s): R94.31 - Abnormal electrocardiogram [ECG] [EKG] Status: Acute Assessment and Plan: - EKG, initial: sinus rhythm with frequent PVCs, left axis deviation, possible left atrial enlargement, inferior infarct age indeterminate, nonspecific ST-T-wave abnormality in high lateral leads, prolonged QT interval (QT 509, QTc 636) - reviewed most recent EKG prior to today's visit (11/22/22) in system, QTc 496. Most recent at [facility] (05/07/24) the QTc was 598. - possible contributing factors: - Mag 1.9, K 3.6, Ca 8.9. will give 1G of Mag IVPB - add TSH - reviewed home medications: hold escitalopram. - repeat EKG in the morning 05/11- trend labs -05/12- cardiology is consulted-appreciate recommendations Possibly function of benzodiazepines and methamphetamine. Follow QTC with serial ECGs. ECG in the morning will be ordered (5) Amphetamine abuse: Code(s): F15.10 - Other stimulant abuse, uncomplicated Status: Acute Assessment and Plan: - UDA: + amphetamines, +benzos - reported use: none - per chart review of OSH ED records, has previously tested positive for amphetamines on multiple different occasions - denies any drug use but UDS positive + amphetamines, +benzos - monitor for withdrawal 05/12- discussed the need for rehab- pt still denying drug use (6) Essential hypertension: Code(s): I10 - Essential (primary) hypertension Status: Acute Assessment and Plan: - chronic, currently 145/108 - continue home medications: Entresto 49-51 b.i.d., metoprolol 100 mg ER daily - monitor
[2024-05-13] MEDS: ALBUTEROL SULFATE (*SP) AEROSOL 1 PUFF INHALATION ×2 (10:37→16:00)
--- NOTE | 2024-05-13 14:07 | PM.PNCARD ---
Progress Note: A&P Assessment and Plan (1) Prolonged QT interval: Code(s): R94.31 - Abnormal electrocardiogram [ECG] [EKG] Status: Acute Assessment and Plan: Possibly function of benzodiazepines and methamphetamine. WNL now. (2) Acute on chronic systolic CHF (congestive heart failure): Code(s): I50.23 - Acute on chronic systolic (congestive) heart failure Status: Acute Assessment and Plan: Likely related to noncompliance. Clinically he is no longer in heart failure. Resume Entresto, metoprolol, Jardiance, furosemide for now (3) Amphetamine abuse: Code(s): F15.10 - Other stimulant abuse, uncomplicated Status: Acute (4) Splenic infarct: Code(s): D73.5 - Infarction of spleen Status: Acute Assessment and Plan: Possibly related to atrial flutter (5) Atrial flutter, paroxysmal: Code(s): I48.92 - Unspecified atrial flutter Status: Acute Assessment and Plan: Atrial flutter noted by ECG. Continue beta-kamila and Xarelto (6) Nonischemic cardiomyopathy: Code(s): I42.8 - Other cardiomyopathies Status: Acute Assessment and Plan: EF has decreased 15-20%, (30-35%) Continue GDMT as above. Subjective Date/time seen: 05/13/24 14:07 Interval history: Cardiology follow up for CHF, cardiomyopathy Date of service 05/12/2024: He is feeling better this morning. Denies any shortness of breath, orthopnea, chest pain, swelling. Date of service 05/13/2024: Complaining of dizziness today but otherwise feels well and does not have any shortness of breath, swelling, chest pain Review of Systems Review of Systems: All systems reviewed & are unremarkable except as noted in HPI and below Constitutional: Constitutional: Denies body ache(s) and Denies excessive sweating Eyes: Eyes: Denies blurry vision ENT: Denies dysphagia Cardiovascular: Cardiovascular: Denies chest pain Respiratory: Respiratory: Denies chest congestion Gastrointestinal: Gastrointestinal: Denies abdominal pain and Denies dysphagia Genitourinary: Genitourinary: Denies hematuria Musculoskeletal: Musculoskeletal: Denies back pain Integumentary/Breasts: Skin/Breast: Denies erythema Neurologic: Denies Abnormal speech present Psychiatric: Psychiatric: Denies anxiety Endocrine: Endocrine: Denies excessive sweating Hematologic/Lymphatic: Hematologic/Lymphatic: Denies easy bleeding Allergic/Immunologic: Allergic/Immunologic: Denies GI upset with certain foods Exam Narrative: Patient is awake but only oriented x2 Const: General: comfortable and no acute distress HENMT: Face/Nose/Sinus: Normal nares present Mouth: Yes moist mucous membranes Eyes: General: appearance normal, both eyes and all related structures Sclera: sclerae normal Neck: Neck: supple and no JVD Chest: Other: No reproducible chest wall pain to palpation Resp: Effort & Inspection: normal respiratory effort Auscultation: clear to auscultation bilaterally Cardio: Rate: regular rate Rhythm: regular rhythm Heart sounds: no murmurs GI: Inspection: non-distended Auscultation: normal bowel sounds Skin: General skin exam: normal color and no rashes or lesions noted Neuro: Speech: No normal speech and No Abnormal speech present Motor exam (neuro): 5/5 motor strength present throughout Extrem: General: normal to inspection Other: No edema Psych: Mental Status: mental status grossly normal Speech and movement: Slurred speech present Objective Data Vital Signs Vital Signs: Vital Signs - 24 hr 05/12/24 14:29 05/12/24 16:00 05/12/24 20:00 Temperature Pulse Rate 72 81 Respiratory Rate Blood Pressure Pulse Oximetry 95 Oxygen Delivery Nasal Cannula Oxygen Flow Rate 1 05/12/24 22:00 05/13/24 00:00 05/13/24 04:00 Temperature 36.2 C L Pulse Rate 115 H 74 91 Respiratory Rate 18 Blood Pressure 115/78 Pulse Oximet
[2024-05-13] MEDS: oxyCODONE/ACETAMINOPHEN (*CRX) 5-325 MG TABLET 1 TABLET PO (15:59)
[2024-05-13] MEDS: RIVAROXABAN 15 MG TABLET PO (17:29)
[2024-05-13] MEDS: ACETAMINOPHEN 325 MG TABLET 650 MG PO (20:25)
[2024-05-14] VITALS (11 sets, daily range): BP systolic 99–129; BP diastolic 61–88; PULSE 61–97; RESP 16–20; TEMP 36.2–36.6; O2SAT 93–97
[2024-05-14] MEDS: ACETAMINOPHEN 325 MG TABLET 650 MG PO (02:59)
[2024-05-14] MEDS: GABAPENTIN 400 MG CAPSULE PO ×3 (05:10→21:06)
[2024-05-14] MEDS: SACUBITRIL/VALSARTAN 49-51 MG TABLET 1 TABLET PO ×2 (08:02→21:06)
[2024-05-14] MEDS: ASPIRIN 81 MG CHEWABLE TABLET PO (08:02)
[2024-05-14] MEDS: ATORVASTATIN 40 MG TABLET 80 MG PO (08:02)
[2024-05-14] MEDS: METOPROLOL SUCCINATE EXT REL 100 MG TABCR PO (08:02)
[2024-05-14] MEDS: guaiFENesin 12 HR 600 MG TABCR PO ×2 (08:02→21:06)
[2024-05-14] MEDS: FUROSEMIDE 40 MG TABLET PO (08:02)
[2024-05-14] MEDS: DOXYCYCLINE HYCLATE 100 MG TABLET PO ×2 (08:02→21:06)
[2024-05-14] MEDS: EMPAGLIFLOZIN 10 MG TABLET PO (08:02)
[2024-05-14] MEDS: oxyCODONE/ACETAMINOPHEN (*CRX) 5-325 MG TABLET 1 TABLET PO ×2 (08:07→21:10)
--- NOTE | 2024-05-14 08:38 | PM.IMPN ---
Progress Note: A&P Assessment and Plan (1) Acute on chronic heart failure: Qualifiers: Heart failure type: unspecified Qualified Code(s): I50.9 - Heart failure, unspecified Code(s): I50.9 - Heart failure, unspecified Status: Acute Assessment and Plan: Acute CHF exacerbation due to patients noncompliance with medications - Symptoms: Shortness of breath - Non compliant with medications - Supportive treatment Tyl and ibu prn Nebs prn - BNP: 87256 - CTA showing diffuse groundglass opacities, likely reflecting edema and small pleural effusions - Echo 05/12/24: LVEF 15-20% (last echo 11/23/22 EF 30-35%). See report for full details. - Cardiology consulted Resume Entresto, metoprolol, Jardiance, furosemide - Monitor vital signs, I&Os, BUN/creatinine, daily weights, neuro status and patient is a fall risk - Monitor serum electrolytes, Keep serum Potassium>4 and serum Magnesium>2 and CBC (2) Hypoxemia requiring supplemental oxygen: Code(s): R09.02 - Hypoxemia; Z99.81 - Dependence on supplemental oxygen Status: Acute Assessment and Plan: - CTA Chest: 1. Diffuse ground glass opacities, likely reflecting edema. 2: Small pleural effusions. 3: Cardiomegaly. 4: Possible gallbladder wall thickening. Consider correlation with ultrasound. - CXR: small pleural effusions - Back to baseline room air - suspect combination of CHF exacerbation and COPD exacerbation, previously prescribed inhaler and antibiotics on 05/07 per [facility]. Not seen on outside med rec. Started on doxycycline given QT prolongation. Will complete this course tomorrow. - telemetry (3) Left anterior fascicular block (LAFB) determined by electrocardiography: Code(s): I44.4 - Left anterior fascicular block Status: Acute Assessment and Plan: - EKG, initial: sinus rhythm with frequent PVCs, left axis deviation, possible left atrial enlargement, inferior infarct age indeterminate, nonspecific ST-T-wave abnormality in high lateral leads, prolonged QT interval (QT 509, QTc 636) - Troponin WNL - no active CP, SOB resolving - telemetry monitoring - cardiology following (4) Prolonged QT interval: Code(s): R94.31 - Abnormal electrocardiogram [ECG] [EKG] Status: Acute Assessment and Plan: - EKG, initial: sinus rhythm with frequent PVCs, left axis deviation, possible left atrial enlargement, inferior infarct age indeterminate, nonspecific ST-T-wave abnormality in high lateral leads, prolonged QT interval (QT 509, QTc 636) - reviewed most recent EKG prior to today's visit (11/22/22) in system, QTc 496. Most recent at [facility] (05/07/24) the QTc was 598. - possible contributing factors: benzos and meth - reviewed home medications: hold escitalopram. - repeat EKG and QT now WNL (5) Amphetamine abuse: Code(s): F15.10 - Other stimulant abuse, uncomplicated Status: Acute Assessment and Plan: - UDA: + amphetamines, +benzos - reported use: none - per chart review of OSH ED records, has previously tested positive for amphetamines on multiple different occasions - denies any drug use but UDS positive + amphetamines, +benzos - monitor for withdrawal (6) Essential hypertension: Code(s): I10 - Essential (primary) hypertension Status: Acute Assessment and Plan: Chronic, well controlled on home medications - continue home medications: Entresto 49-51 b.i.d., metoprolol 100 mg ER daily - monitor (7) Splenic infarct: Code(s): D73.5 - Infarction of spleen Status: Acute Assessment and Plan: Possibly due to patients afib. - Discussed patient with cardiology Dr. Graham. Will start Xarelto 20 mg daily as maitenance dose. Time Spent With Patient Time with patient: 25 - 35 minutes Subjective Date/time seen: 05/14/24 08:38 Interval history: 58 y/o M presents here with SOB with PMH CVA (residual memory difficulty), CHF, diet-controlled DM, HTN, hep C,
[2024-05-14 09:14] LABS: Basophils Absolute Auto 0.1 K/mm3 (0.0-0.1); Basophils Percent Auto 0.9 % (0.2-1.2); Eosinophils Absolute Auto 0.5 K/mm3 (0-0.3); Eosinophils Percent Auto 4.6 % (0-4.4); Hematocrit 46.6 % (42.0-52.0); Hemoglobin 14.5 g/dL (14.0-18.0); Immature Granulocyte Absolute 0.04 K/mm3 (0.00-0.031); Immature Granulocyte Percent A 0.4 % (0-0.5); Lymphocytes Percent Auto 18.7 % (18.3-44.2); Mean Corpuscular HGB Conc 31.1 g/dl (32-36); Mean Corpuscular Hemoglobin 30.7 pg (26-34); Mean Corpuscular Volume 98.7 fl (80-100); Mean Platelet Volume 9.9 fl (7.4-10.4); Monocytes Absolute Auto 1.5 K/mm3 (0.1-0.6); Monocytes Percent Auto 14.8 % (2.6-8.5); Neutrophils Absolute Auto 6.2 K/mm3 (1.3-6.7); Neutrophils Percent Auto 60.6 % (45.5-73.1); Platelet Count Result 368 k/mm3 (150-375); Red Blood Count 4.72 M/mm3 (4.6-6.20); Red Cell Distribution Width 14.5 % (11.5-14.5); White Blood Count 10.2 K/mm3 (4.5-10.0)
[2024-05-14] MEDS: ALBUTEROL SULFATE (*SP) AEROSOL 1 PUFF INHALATION (09:26)
--- NOTE | 2024-05-14 09:27 | PM.PNCARD ---
Progress Note: A&P Assessment and Plan (1) Prolonged QT interval: Code(s): R94.31 - Abnormal electrocardiogram [ECG] [EKG] Status: Acute Assessment and Plan: Possibly function of benzodiazepines and methamphetamine. WNL now. (2) Acute on chronic systolic CHF (congestive heart failure): Code(s): I50.23 - Acute on chronic systolic (congestive) heart failure Status: Acute Assessment and Plan: Likely related to noncompliance. Clinically he is no longer in heart failure. Continue Jardiance, PO Lasix, Toprol, Entresto (3) Amphetamine abuse: Code(s): F15.10 - Other stimulant abuse, uncomplicated Status: Acute (4) Splenic infarct: Code(s): D73.5 - Infarction of spleen Status: Acute Assessment and Plan: Possibly related to atrial flutter (5) Atrial flutter, paroxysmal: Code(s): I48.92 - Unspecified atrial flutter Status: Acute Assessment and Plan: Atrial flutter noted by ECG. Continue beta-kamila and Xarelto. Recommend dosing of Xarelto be 20mg once daily. (6) Nonischemic cardiomyopathy: Code(s): I42.8 - Other cardiomyopathies Status: Acute Assessment and Plan: EF has decreased 15-20%, (30-35%) Continue GDMT as above. Plan Okay to discharge home from a cardiology standpoint. Will arrange outpatient follow up. Recommendations and plan discussed with Hospitalist. Subjective Date/time seen: 05/14/24 09:27 Interval history: Reason for visit: CHF Feeling well this morning. Tele stable. Review of Systems Review of Systems: All systems reviewed & are unremarkable except as noted in HPI and below (HPI) Exam Const: General: comfortable and no acute distress HENMT: Mouth: Yes moist mucous membranes Eyes: General: appearance normal, both eyes and all related structures Sclera: sclerae normal Resp: Effort & Inspection: normal respiratory effort Cardio: Rate: regular rate Rhythm: regular rhythm Skin: General skin exam: normal color Neuro: Speech: normal speech Psych: Mental Status: mental status grossly normal Affect: normal affect Objective Data Vital Signs Vital Signs: Vital Signs - 24 hr 05/13/24 09:58 05/13/24 14:00 05/13/24 12:00 Temperature 36.6 C Pulse Rate 82 77 89 Respiratory Rate 16 Blood Pressure 127/87 Pulse Oximetry 97 Oxygen Delivery 05/13/24 16:00 05/13/24 16:00 05/13/24 19:18 Temperature 36.7 C Pulse Rate 75 69 70 Respiratory Rate 18 18 Blood Pressure 97/70 L Pulse Oximetry 99 Oxygen Delivery 05/13/24 20:00 05/13/24 20:00 05/14/24 00:00 Temperature Pulse Rate 69 76 Respiratory Rate Blood Pressure Pulse Oximetry Oxygen Delivery Room Air 05/14/24 04:00 05/14/24 05:13 05/14/24 09:22 Temperature 36.2 C L Pulse Rate 73 74 Respiratory Rate 16 Blood Pressure 129/88 Pulse Oximetry 97 95 Oxygen Delivery Room Air 05/14/24 09:23 Temperature Pulse Rate 61 Respiratory Rate 20 Blood Pressure Pulse Oximetry Oxygen Delivery Intake/Output Intake/Output: Intake & Output 05/11/24 05/12/24 05/13/24 05/14/24 23:59 23:59 23:59 23:59 Intake Total 1850 19390 1050 Output Total 300 Balance 1550 0 0 1050 Meds/Results Medications: Active Medications Generic Name Dose Route Start Last Admin Trade Name Freq PRN Reason Stop Dose Admin Acetaminophen 650 mg 05/10/24 12:18 05/14/24 02:59 Acetaminophen 325 Mg Tablet PO 650 mg Q4H PRN Administration Mild Pain (1-3) or Fever Albuterol 1 puff 05/10/24 15:33 05/14/24 09:26 Albuterol Sulfate (*Sp) Aerosol 1 Puff INHALATION 1 puff QIDRT PRN Administration shortness of breath or wheezing Alprazolam 1 mg 05/10/24 15:33 05/11/24 21:37 Alprazolam (*Crx) 0.5 Mg Tablet PO 1 mg DAILY PRN Administration Anxiety Aspirin 81 mg 05/11/24 09:00 05/14/24 08:02 Aspirin 81 Mg Chewable Tablet PO 8
[2024-05-14 09:33] LABS: Alanine Aminotransferase 23 U/L (6-50); Albumin Level 3.9 g/dL (3.5-5.1); Alkaline Phosphatase 64 U/L (38-126); Anion Gap 10 mmol/L (4-12); Aspartate Amino Transferase 30 U/L (17-59); Bilirubin,Total 0.8 mg/dL (0.2-1.3); Blood Urea Nitrogen 22 mg/dL (9-20); Calcium 8.5 mg/dL (8.4-10.2); Carbon Dioxide 29 mmol/L (22-30); Chloride 100 mmol/L (98-107); Estimated CRCL calculation 70 ml/min; Estimated Glomerular Filt Rate > 60; Glucose 126 mg/dL (65-110); Potassium 4.1 mmol/L (3.4-5.0); Sodium 139 mmol/L (137-145)
[2024-05-14] MEDS: RIVAROXABAN 20 MG TABLET PO (16:49)
[2024-05-14] MEDS: ALPRAZolam (*CRX) 0.5 MG TABLET 1 MG PO (21:10)
[2024-05-15] VITALS (7 sets, daily range): BP systolic 109; BP diastolic 79; PULSE 66–76; RESP 18; TEMP 36.2; O2SAT 92–98
[2024-05-15] MEDS: DOXEPIN HCL 25 MG CAPSULE PO (00:40)
[2024-05-15] MEDS: GABAPENTIN 400 MG CAPSULE PO ×2 (06:17→14:13)
[2024-05-15 07:03] LABS: Basophils Absolute Auto 0.1 K/mm3 (0.0-0.1); Basophils Percent Auto 0.9 % (0.2-1.2); Eosinophils Absolute Auto 0.5 K/mm3 (0-0.3); Eosinophils Percent Auto 5.5 % (0-4.4); Hematocrit 51.1 % (42.0-52.0); Immature Granulocyte Absolute 0.02 K/mm3 (0.00-0.031); Immature Granulocyte Percent A 0.2 % (0-0.5); Lymphocytes Absolute Auto 1.75 K/mm3 (0.9-3.2); Mean Corpuscular HGB Conc 31.3 g/dl (32-36); Mean Corpuscular Hemoglobin 30.7 pg (26-34); Mean Corpuscular Volume 97.9 fl (80-100); Mean Platelet Volume 10.2 fl (7.4-10.4); Monocytes Absolute Auto 1.6 K/mm3 (0.1-0.6); Monocytes Percent Auto 18.4 % (2.6-8.5); Neutrophils Absolute Auto 4.8 K/mm3 (1.3-6.7); Platelet Count Result 365 k/mm3 (150-375); Red Blood Count 5.22 M/mm3 (4.6-6.20); Red Cell Distribution Width 14.4 % (11.5-14.5); White Blood Count 8.7 K/mm3 (4.5-10.0)
[2024-05-15 07:16] LABS: Alanine Aminotransferase 24 U/L (6-50); Alkaline Phosphatase 74 U/L (38-126); Anion Gap 10 mmol/L (4-12); Aspartate Amino Transferase 32 U/L (17-59); Bilirubin,Total 0.8 mg/dL (0.2-1.3); Blood Urea Nitrogen 22 mg/dL (9-20); Calcium 8.8 mg/dL (8.4-10.2); Carbon Dioxide 28 mmol/L (22-30); Chloride 100 mmol/L (98-107); Estimated CRCL calculation 64 ml/min; Estimated Glomerular Filt Rate > 60; Glucose 112 mg/dL (65-110); Potassium 4.3 mmol/L (3.4-5.0); Sodium 138 mmol/L (137-145)
[2024-05-15] MEDS: EMPAGLIFLOZIN 10 MG TABLET PO (08:42)
[2024-05-15] MEDS: FUROSEMIDE 40 MG TABLET PO (08:43)
[2024-05-15] MEDS: guaiFENesin 12 HR 600 MG TABCR PO (08:43)
[2024-05-15] MEDS: DOXYCYCLINE HYCLATE 100 MG TABLET PO (08:43)
[2024-05-15] MEDS: ASPIRIN 81 MG CHEWABLE TABLET PO (08:43)
[2024-05-15] MEDS: METOPROLOL SUCCINATE EXT REL 100 MG TABCR PO (08:43)
[2024-05-15] MEDS: SACUBITRIL/VALSARTAN 49-51 MG TABLET 1 TABLET PO (08:43)
[2024-05-15] MEDS: ATORVASTATIN 40 MG TABLET 80 MG PO (08:43)
--- NOTE | 2024-05-15 12:32 | PM.DS ---
DS: Admitting Diagnosis Discharge Date 05/15/24 Admitting Diagnosis acute on chronic heart failure hypoxemia left anterior fascicular block prolonged QT interval atrial flutter amphetamine abuse hypertension splenic infarct DS: Discharge Diagnosis Discharge Diagnosis (1) Acute on chronic heart failure: Qualifiers: Heart failure type: unspecified Qualified Code(s): I50.9 - Heart failure, unspecified Code(s): I50.9 - Heart failure, unspecified Status: Acute (2) Hypoxemia requiring supplemental oxygen: Code(s): R09.02 - Hypoxemia; Z99.81 - Dependence on supplemental oxygen Status: Acute (3) Left anterior fascicular block (LAFB) determined by electrocardiography: Code(s): I44.4 - Left anterior fascicular block Status: Acute (4) Prolonged QT interval: Code(s): R94.31 - Abnormal electrocardiogram [ECG] [EKG] Status: Acute (5) Amphetamine abuse: Code(s): F15.10 - Other stimulant abuse, uncomplicated Status: Acute (6) Essential hypertension: Code(s): I10 - Essential (primary) hypertension Status: Acute (7) Splenic infarct: Code(s): D73.5 - Infarction of spleen Status: Acute (8) Atrial flutter, paroxysmal: Code(s): I48.92 - Unspecified atrial flutter Status: Acute DS: Summary Hospital Course Reason for hospitalization: acute on chronic heart failure hypoxemia left anterior fascicular block prolonged QT interval atrial flutter amphetamine abuse hypertension splenic infarct Hospital Course: 58 y/o M presents here with SOB with PMH CVA (residual memory difficulty), CHF, diet-controlled DM, HTN, hep C, nonischemic cardiomyopathy, migraines, GINA, and pulmonary hypertension. On admission patient was noted to be hypoxic requiring oxygen supplementation. Baseline room air. Chest XR showed small pleural effusion. CTA showing diffuse groundglass opacities, likely reflecting edema and small pleural effusions. BNP was [address]. Patient found to be in an acute heart failure and COPD exacerbation likely due to medication noncompliance. He was started on doxycycline for COPD exacerbation because he had a prolonged QT on EKG likely due to his illicit drug use (UDS + amphetamines and benzos) and escitalopram. Cardiology was consulted at that time. Patients Entresto, metoprolol, Jardiance, and furosemide were resumed. An echo was obtained and showed an EF 15-20%. Prior echo on 11/23/22 had EF 30-35%. Patient found to have a splenic infarct likely due to his atrial flutter as seen on EKG per cardiology. Patient was started on xarelto and is to continue his beta kamila. Patient was given a sample of xarelto prior to discharge as his insurance will not cover for another month. During admission patient was weaned off the oxygen supplementation. His QT interval returned to normal. Prior to discharge patient denied chest pain, shortness of breath, nausea/vomiting, and was ambulating throughout his room without dizziness/lightheadedness. Patient received information for rehab and drug use cessation. Patient discharged home in a stable condition. He is to follow up with his PCP in 1 week and cardiology as scheduled. Status at Discharge Functional status at discharge: independent ambulation Time Spent with Patient Time attestation: Total time spent providing and/or coordinating discharge services: Time spent: Greater than 30 minutes Exam Narrative: AF HR 69 RR 18 SpO2 98 BP 109/79 General: male in no acute respiratory distress who is nontoxic appearing, lying semi recumbent in bed. HEENT: Normocephalic. Atraumatic. Extraocular movement intact. Sclera clear and anicteric. No facial asymmetry. Chest: Lungs are clear to auscultation bilaterally. No wheezes or crackles. CV: Heart was regular rate and rhythm. S1/S2. No murmurs, gallops, or rubs. Abd: Abdomen was soft. Nontender. Nondistended. Positive bowel sounds. No
== END 2024-05-15 14:35 | disposition home or self-care (01) | DRG 194 ==
LOC: ANHED 10:19 → ANH3MED 12:55
PROVIDERS: Emergency Medicine; Student in an Organized Health Care Education/Training Program; Admitting Provider General Practice; Emergency Provider Student in an Organized Health Care Education/Training Program; PCP Internal Medicine; Visit Provider Student in an Organized Health Care Education/Training Program
DX: I11.0 Hypertensive heart disease with heart failure (principal); I50.23 Acute on chronic systolic (congestive) heart failure; I42.8 Other cardiomyopathies; I27.20 Pulmonary hypertension, unspecified; I44.4 Left anterior fascicular block; I48.92 Unspecified atrial flutter; R94.31 Abnormal electrocardiogram [ECG] [EKG]; J44.1 Chronic obstructive pulmonary disease with (acute) exacerbation; B19.20 Unspecified viral hepatitis C without hepatic coma; D73.5 Infarction of spleen; E11.42 Type 2 diabetes mellitus with diabetic polyneuropathy; K57.30 Diverticulosis of large intestine without perforation or abscess without bleeding; G47.33 Obstructive sleep apnea (adult) (pediatric); F15.10 Other stimulant abuse, uncomplicated; F41.9 Anxiety disorder, unspecified; Z20.822 Contact with and (suspected) exposure to COVID-19; I69.328 Other speech and language deficits following cerebral infarction; I69.311 Memory deficit following cerebral infarction; Z79.01 Long term (current) use of anticoagulants; Z79.82 Long term (current) use of aspirin; Z91.199 Patient's noncompliance with other medical treatment and regimen due to unspecified reason
CPT/HCPCS: 36415; 36600; 71046; 71275; 80053; 80307; 82805; 83735; 83880; 84443; 84484; 85025; 85380; 87637; 93005; 93306; 94640; 96365; 96375; 99285; A9270; G0378; J1940; J3475; Q9967